=== PATIENT | female | born 1990 | race Caucasian/White ===

== ENCOUNTER → 2018-05-01 18:48 | Outpatient (REF) | payer OTHER, MEDICAID, SELFPAY ==
[2018-05-02 13:44] LABS: Strep Grp B PCR NEG for Grp B Strep
== END ==
LOC: LAB 18:48
PROVIDERS: PCP Physician Assistant; Visit Provider Family Medicine
DX: O99.820 Streptococcus B carrier state complicating pregnancy (principal)
CPT/HCPCS: 87653

== ENCOUNTER 2018-05-09 02:39 | Inpatient (IN) | payer OTHER, MEDICAID, SELFPAY ==
[2018-05-09 03:02] LABS: Urine Amphetamines Negative (Negative); Urine Barbiturates Negative (Negative); Urine Benzodiazepines Negative (Negative); Urine Cocaine Negative (Negative); Urine MDMA Negative (Negative); Urine Methadone Negative (Negative); Urine Methamphetamines Negative (Negative); Urine Morphine/Opi cutoff 2000 Negative (Negative); Urine Oxycodone Negative (Negative); Urine Phencyclidine Negative (Negative); Urine Tetrahydrocannabinol Negative (Negative); Urine Tricyclic Antidepressant Negative (Negative)
[2018-05-09] MEDS: LACTATED RINGERS 1,000 ML 100 ML IV (03:15)
[2018-05-09] MEDS: fentaNYL 100 MCG/2 ML INJ IV (03:15)
[2018-05-09 04:01] LABS: Add Manual Diff / Slide Review NO; Basophils Percent Auto 0.6 % (0-2); Eosinophils Percent Auto 1.5 % (2-4); Hematocrit 41.7 % (36-46); Hemoglobin 13.9 g/dL (12.0-16.0); Lymphocytes Percent Auto 14.8 % (25-40); Mean Corpuscular HGB Conc 33.4 % (30-36); Mean Corpuscular Hemoglobin 30.5 PG (26-34); Mean Corpuscular Volume 91.1 fL (80-100); Monocytes Percent Auto 6.3 % (3-14); Neutrophils Absolute Auto 14500 /uL (3000-5900); Neutrophils Percent Auto 76.8 % (50-75); Platelet Count 194 X10^3/uL (150-400); Red Blood Cell Count 4.58 X10^6/uL (4.0-5.2); Red Cell Distribution Width 14.5 % (11.6-14.8); White Blood Cell Count 18.9 X10^3/uL (4.5-11.0)
--- NOTE | 2018-05-09 06:05 | P.PCNOB_ITS ---
Delivery date: 05/09/18 Intrapartal events: Precipitous Labor < 3 hours Induction method: none Delivery monitor: external FHT and external uterine Route of delivery: breech extraction Laceration description: Periurethral - 1st Degree Estimated blood loss (mL): 250 Anesthesia type: None Narrative: Identifying data: 27-year-old at 37 and 6 /7 weeks estimated gestational age based on 23 week ultrasound and LMP presents to Labor and delivery with spontaneous labor. Patient was late to care. History of maternal drug use but stopped in 1st trimester. Urine drug screens were all negative further remainder of the and also when patient came in in labor. GBS negative, O positive, a glucose tolerance test 58 and mom smoked throughout . Also of significant other during approximately 6 weeks ago. Accidental Stage I lasted 1 hr. Patient noted cramping yesterday and contractions spaced apart today that were not very painful and then she went to work and worked for an hour but came home because she was having back pains. This was at approximately 4:00 p.m. today. The contractions progressively increased in intensity and frequency and regularity and patient noted leaking of fluid which was clear at 2:00 a.m.. She presented to Labor and delivery at approximately 2:30 a.m. and was in significant amount of pain requesting epidural. She is noted to be 3 cm and due to severity of pain she was given 100 mcg of fentanyl which did not give her any relief and then rapidly progressed to complete with a starr breech presentation. I was called in stat and confirmed with ultrasound starr breech presentation as well as with vaginal exam as well confirmed that she was complete. Anesthesia and backup OB and TS was called as well as the OR crew and preparation to proceed for section. Stage II lasted 15 min Patient was coached to not push but began involuntary pushing at approximately 4 :00 a.m.. Initially baby's back was to maternal right but with pushing baby's back was up on top. Mom continued to push until just the ft were remaining in shoulders and had of course. Dr. Oneill arrived at that time. Dr. Solomon from anesthesia arrived at approximately 410 but it was felt that epidural could not be performed at this time. Please see Dr. Oneill consult note. Mom was then switched to hands and knees and allowing the baby's weight to extract the feet and then in usual fashion 1 arm was delivered baby was rotated 180? and the other arm was rotated and then the head was delivered atraumatically. Baby was suppressed at delivery. The cord was cut and clamped and baby take in to the warmer for resuscitation. Apgars were 4 at 1 min and 8 at 5 min and 9 at 10 min and positive pressure ventilation was given for 3 min. There was a very small first-degree perineal laceration. And a right labial laceration. Stage III lasted 10 min Normal spontaneous vaginal delivery of an intact normal appearing placenta with a three-vessel cord and central cord insertion. No significant calcific calcifications. The right labial and perineal lacerations were repaired with 3 0 chromic in the usual fashion. Pitocin was given At the time this dictation both mom and baby are in stable condition
[2018-05-09 07:19] VITALS: BP 136/94
[2018-05-09] MEDS: IBUPROFEN 600 MG TABLET PO ×2 (07:34→23:57)
[2018-05-09] MEDS: HYDROCODONE/ACET 5/325 TABLET 1 TAB PO (11:38)
[2018-05-10 07:06] LABS: Add Manual Diff / Slide Review NO; Basophils Percent Auto 0.7 % (0-2); Eosinophils Percent Auto 2.5 % (2-4); Hematocrit 34.9 % (36-46); Hemoglobin 11.7 g/dL (12.0-16.0); Lymphocytes Percent Auto 27.7 % (25-40); Mean Corpuscular HGB Conc 33.5 % (30-36); Mean Corpuscular Hemoglobin 30.8 PG (26-34); Mean Corpuscular Volume 91.8 fL (80-100); Monocytes Percent Auto 6.6 % (3-14); Neutrophils Absolute Auto 7200 /uL (3000-5900); Neutrophils Percent Auto 62.5 % (50-75); Platelet Count 148 X10^3/uL (150-400); Red Cell Distribution Width 14.6 % (11.6-14.8); White Blood Cell Count 11.5 X10^3/uL (4.5-11.0)
[2018-05-10] MEDS: DOCUSATE 250 MG CAPSULE PO (09:42)
[2018-05-10] MEDS: PRENATAL VIT,CALC/IRON/FOLIC 1 TABLET 1 TAB PO (09:42)
[2018-05-10] MEDS: IBUPROFEN 600 MG TABLET PO (09:42)
--- NOTE | 2018-05-10 09:47 | PM.OBDS.1 ---
Discharge Providers Date of admission: 05/09/18 02:39 Consults: 05/09/18 05:43 Consult to Photoengraving Photographer Routine Comment: Discharge provider: Juliana Yeager MD Summary Date Patient Seen: 05/10/18 Time Patient Seen: 09:48 Peripartum Data Infant Delivery Method: Natural Vaginal Laceration description: Periurethral - 1st Degree complications: none Status at Discharge Cognitive/behavioral status at discharge: normal Functional status at discharge: independent ambulation Time Spent with Patient Total time spent providing and/or coordinating discharge services: Greater than 30 minutes Time spent discussing smoking cessation with patient: 3 to 10 minutes Objective Labs Result Diagrams: 05/10/18 06:40 Labs: Laboratory Results - last 24 hr 05/10/18 06:40 WBC 11.5 H RBC 3.80 L Hgb 11.7 L Hct 34.9 L MCV 91.8 MCH 30.8 MCHC 33.5 RDW 14.6 Plt Count 148 L Neut % (Auto) 62.5 Lymph % (Auto) 27.7 [place] % (Auto) 6.6 Eos % (Auto) 2.5 Baso % (Auto) 0.7 Neut # (Auto) 7200 H Discharge Plan Discharge Plan Patient Disposition: Home, Self-Care Discharge comment: routine discharge, pelvic rest, no heavy lifting Discharge Med Rec/Prescriptions Prescriptions: New docusate sodium 250 mg Capsule 250 mg PO DAILY Qty: 0 RF: 0 ibuprofen 600 mg Tablet 600 mg PO Q6HR PRN (Reason: Pain, Mild (1-3)) Qty: 0 RF: 0 [id number] [Prenatabs Rx] 29 mg iron- 1 mg Tablet 1 tab PO DAILY Qty: 0 RF: 0 Discontinued ALBUTEROL SULFATE (#VENTOLIN HFA) 0.09 mg IH Q4HP Qty: 1 RF: 3 sertraline [Zoloft] 50 MG tablet 50 mg PO Q DAY Qty: 30 RF: 1 PREDNISONE- (#DELTASONE) 20 mg PO QDAY Qty: 10 RF: 0 Provider Discharge Instructions Diet: Diet as Tolerated Skin/Wound/Dressing Care Report to your healthcare provider any signs of infection, such as:: chills, fever, night sweats, increased pain and unusual drainage Discharge Data Attending Provider: Juliana Yeager Admit Date/Time: 05/09/18 02:39
[2018-05-10 10:46] VITALS: BP 130/85; PULSE 82; RESP 16; TEMP 36.2
[2018-05-10] MEDS: MEASLES,MUMPS,RUBELLA VACC/PF 0.5 ML VIAL SUBCUT (11:16)
== END 2018-05-10 12:05 | disposition home or self-care (01) | DRG 560 ==
PROVIDERS: Admitting Provider Family Medicine; Visit Provider Family Medicine
DX: O32.1XX0 Maternal care for breech presentation, not applicable or unspecified (principal); Z3A.37 37 weeks gestation of pregnancy; Z37.0 Single live birth; O70.0 First degree perineal laceration during delivery; O99.334 Smoking (tobacco) complicating childbirth; F17.210 Nicotine dependence, cigarettes, uncomplicated
CPT/HCPCS: 36415; 59050; 80305; 85025; 86850; 86900; 86901; G0379; J3010

== ENCOUNTER → 2019-07-19 09:29 | Outpatient (CLI) | payer OTHER, MEDICAID, SELFPAY ==
[2019-07-19 13:15] LABS: Urine N gonorrhoeae DETECTED
[2019-07-19 13:39] LABS: Urine Chlamydia DETECTED
== END ==
PROVIDERS: PCP Physician Assistant; Visit Provider Physician Assistant
DX: Z11.3 Encounter for screening for infections with a predominantly sexual mode of transmission (principal); R30.0 Dysuria
CPT/HCPCS: 87077; 87086; 87491; 87591

== ENCOUNTER 2019-08-25 17:40 | Emergency (ER) | payer MEDICAID, SELFPAY ==
[2019-08-25 17:52] VITALS: BP 110/82; PULSE 88; RESP 12; TEMP 36.2; O2SAT 98
--- NOTE | 2019-08-25 18:06 | ED_ITS ---
HPI - Abdominal Pain General Chief Complaint: Abdominal Pain Stated Complaint: bad stomach Time Seen by Provider: 08/25/19 18:00 Source: patient Mode of arrival: Ambulatory Limitations: no limitations History of Present Illness HPI narrative: 29-year-old female smoker with history of asthma and methamphetamine abuse presents with her mother and a chief complaint of some generalized episodic abdominal pain over the past day. She has had decreased bowel movements and stools which are hard. She has had some change in her diet. She denies any fever or chills. She does admit to significant stressors in her life currently. MD complaint: abdominal pain Onset (ago): hour(s) Pain Consistency: intermittent Location: diffuse Severity: moderate Quality: cramping Relieving factors: nothing Exacerbating factors: nothing Associated symptoms: nausea and constipation Related Data Previous Rx's Medication Instructions Recorded ALBUTEROL SULFATE (#VENTOLIN HFA) 0.09 mg IH Q4HP #1 07/19/11 PREDNISONE- (#DELTASONE) 20 mg PO QDAY #10 08/02/11 sertraline [Zoloft] 50 mg PO Q DAY #30 08/02/11 albuterol sulfate 90 mcg/actuation 2 puff INHALATION Q4-6H PRN #8.5 07/19/19 aerosol inhaler gram phenazopyridine 100 mg tablet 100 mg PO TID PRN 0 Days #6 tab 07/19/19 Allergies Allergy/AdvReac Type Severity Reaction Status Date / Time No Known Drug Allergies Allergy Verified 07/19/19 09:39 Review of Systems Constitutional Constitutional: Denies chills, Denies fatigue, Denies fever(s), Denies frequent falls, Denies lethargy and Denies weakness Eyes Eyes: Denies change in vision, Denies eye discharge, Denies irritation and Denies loss of vision ENT Ears, Nose, Mouth, and Throat: Denies change in voice, Denies dizziness, Denies neck pain, Denies sore throat and Denies throat swelling Cardiovascular Cardiovascular: Denies chest pain, Denies irregular heart rhythm, Denies lightheadedness, Denies palpitations, Denies dyspnea, Denies dyspnea on exertion and Denies orthopnea Respiratory Respiratory: Denies cough, Denies dyspnea, Denies dyspnea on exertion and Denies wheezing Gastrointestinal Gastrointestinal: Reports abdominal pain, Denies change in bowel habits, Reports constipation, Denies diarrhea, Denies nausea and Denies vomiting Genitourinary Genitourinary: Denies hematuria, Denies flank pain, Denies urinary incontinence and Denies urinary urgency Musculoskeletal Musculoskeletal: Denies back pain, Denies muscle weakness, Denies neck pain, Denies numbness and Denies tingling Integumentary/Breasts Skin/Breast: Denies pruritus, Denies erythema, Denies rash and Denies wounds Neurologic Neurologic: Denies behavioral changes, Denies confusion, Denies dizziness, Denies frequent falls, Denies loss of vision, Denies numbness, Denies tingling and Denies weakness Psychiatric Psychiatric: Denies anxiety, Denies behavioral changes, Denies confusion, Denies depression, Denies homicidal ideation and Denies suicidal ideation Endocrine Endocrine: Denies fatigue, Denies flushing and Denies palpitations Hematologic/Lymphatic Hematologic/Lymphatic: Denies easy bruising Allergic/Immunologic Allergic/Immunologic: Denies urticaria, Denies throat swelling and Denies wheezing Patient History Social History Smoking Status: Current every day smoker Substance Use Type: methamphetamine Exam Narrative Exam Narrative: GENERAL: [29] year old patient appears stated age. Well- nourished, well-developed patient, in mild distress. HEAD: Atraumatic. Normocephalic. EYES: Pupils equal round and reactive. Extraocular motions intact. No scleral icterus. No injection or drainage. ENT: Nose without bleeding, purulent drainage. Throat without erythema, tonsillar hypertrophy or exudate. Airway patent. NECK: Trachea midline. Non tender CARDIOVASCULAR: Regular rate and rhythm without murmurs, gallops, or rubs. RESPIRATORY: Clear to auscultation. Breath sounds equal bilaterally. No wheezes, rales, or rhonchi. GASTROINTESTINAL: Abdomen soft, non-tender, nondistended. EXTREMITIES: No edema or joint tenderness. BACK: Nontender without deformity or crepitance. No flank tenderness. NEURO: AOx3. SKIN: No rash or erythema of visible areas Initial Vital Signs Initial Vital Signs: Vital Signs Temperature 97.2 F L 08/25/19 17:52 Pulse Rate 88 08/25/19 17:52 Respiratory Rate 12 08/25/19 17:52 Blood Pressure 110/82 08/25/19 17:52 Pulse Oximetry 98 08/25/19 17:52 Course Orders Ordered: ED Orders 08/25/19 18:00 Basic Metabolic Panel Stat Complete Blood Count AUTO DIFF Stat 08/25/19 18:21 XR acute abdomen series Stat Discontinued Medications Sodium Chloride (Normal Saline 0.9%) 1,000 mls @ 1,000 mls/hr IV BOLUS ONE Stop: 08/25/19 19:56 Last Infusion: 08/25/19 19:45 Dose: 0 mls/hr Documented by: Admin: 08/25/19 18:55 Dose: 1,000 mls/hr Documented by: CATHERINE Vital Signs Vital signs: Vital Signs - 8 hr 08/25/19 17:52 08/25/19 19:19 08/25/19 19:50 Temperature 97.2 F L Pulse Rate 88 78 78 Respiratory Rate 12 16 16 Blood Pressure 110/82 115/74 Blood Pressure [Left Arm] 124/79 Pulse Oximetry 98 100 97 MDM - Abdominal Pain Lab Data Result diagrams: 08/25/19 18:00 08/25/19 18:00 Labs: Lab Results 08/25/19 08/25/19 Range/Units 18:00 18:00 WBC 4.6 (4.5-11.0) X10^3/uL RBC 4.80 (4.0-5.2) X10^6/uL Hgb 14.1 (12.0-16.0) g/dL Hct 42.9 (36-46) % MCV 89.5 (80-100) fL MCH 29.4 (26-34) PG MCHC 32.9 (30-36) % RDW 13.5 (11.6-14.8) % Plt Count 180 (150-400) X10^3/uL Neut % (Auto) 65.1 (50-75) % Lymph % (Auto) 24.0 L (25-40) % [place] % (Auto) 7.1 (3-14) % Eos % (Auto) 3.2 (2-4) % Baso % (Auto) 0.6 (0-2) % Neut # (Auto) 3000 (1034-3239) /uL Lymph # (Auto) 1100 (3409-3443) /uL [place] # (Auto) 300 (0-900) /uL Eos # (Auto) 100 (0-450) /uL Baso # (Auto) 0 (0-100) /uL Sodium 135 L (137-145) mmol/L Potassium 3.9 (3.4-5.1) mmol/L Chloride 102 (98-107) mmol/L Carbon Dioxide 25 (22-32) mmol/L BUN 13 (7-17) mg/dL Creatinine 0.60 (0.52-1.04) mg/dL Estimated GFR > 60.0 (>60) mL/min BUN/Creatinine Ratio 21.7 (6-22) Glucose 95 (70-100) mg/dL Calcium 9.0 (8.4-10.2) mg/dL Point of care testing: Point of Care Testing Test Results Negative Urine Dip Bedside Urine Glucose Negative Bedside Urine Bilirubin - Negative Bedside Urine Ketone - Negative Urine Specific [place] 1.015 Bedside Urine Occult Blood - Negative Bedside Urine pH 6.0 Bedside Urine Protein - Negative Bedside Urine Urobilinogen +/- 1mg Bedside Urine Nitrite - Negative Bedside Urine Leukocytes - Negative Esterase Discharge Plan Departure Patient Disposition: Home Clinical Impression: Abdominal pain Qualifiers: Abdominal location: generalized Qualified Code(s): R10.84 - Generalized abdominal pain Constipation Qualifiers: Constipation type: unspecified constipation type Qualified Code(s): K59.00 - Constipation, unspecified Discharge Date/Time: 08/25/19 19:50 Instructions: DI for Constipation Activity Restrictions/Additional Instructions: *You have been diagnosed with [ abdominal pain due to constipation ] *What to do: *Take over the counter medications as directed: 1. Magnesium Citrate - brings water into your bowel 2. Colace - softens your stool 3. Dulcolax - stiumlates your bowels *Follow up with your primary care provider in 2-3 days, call for appointment *Return to ER if you should have any new, worsening or concerning symptoms *Drink plenty of water and eat foods high in fiber Prescriptions: No Action albuterol sulfate 90 mcg/actuation HFA aerosol inhaler 2 puff INHALATION Q4-6H PRN (Reason: bronchospasm) Qty: 8.5 RF: 0 phenazopyridine [Pyridium] 100 mg tablet 100 mg PO TID PRN (Reason: pain) 0 Days Qty: 6 RF: 0 ALBUTEROL SULFATE (#VENTOLIN HFA) 0.09 mg IH Q4HP Qty: 1 RF: 3 sertraline [Zoloft] 50 MG tablet 50 mg PO Q DAY Qty: 30 RF: 1 PREDNISONE- (#DELTASONE) 20 mg PO QDAY Qty: 10 RF: 0 Referrals: Vita Rodriguez PA-C [Primary Care Provider] -
--- NOTE | 2019-08-25 18:21 | DI.RAD.S_ITS ---
PROCEDURE: XR ACUTE ABDOMEN SERIES INDICATIONS: abdominal pain decreased BMs TECHNIQUE: One view chest and two views of the abdomen were acquired. COMPARISON: [facility], , CHEST 1 VIEW, 11/17/2008, 0:21. FINDINGS: Surgical changes and devices: None. Chest: Lungs are clear. Heart size is normal. No pleural effusions. No pneumoperitoneum. Abdomen: Bowel gas pattern demonstrates gas within nondistended small and large bowel loops. There are few scattered air-fluid levels. A moderate amount of colonic stool is noted within the descending and sigmoid colon. No suspicious calcifications. Bones: No suspicious bony lesions. IMPRESSION: 1. Scattered air-fluid levels within small and large bowel loops without abnormal gas distention. The findings are nonspecific and may reflect an ileus or gastroenteritis. 2. Small to moderate amount of colonic stool in the descending and sigmoid colon may reflect mild constipation. Dictated by: Arben Chaparro M.D. on 08/25/2019 at 18:55 Approved by: Arben Chaparro M.D. on 08/25/2019 at 18:58
[2019-08-25] MEDS: SODIUM CHLORIDE 0.9% 1,000 ML 1000 ML IV (18:55)
[2019-08-25 19:10] LABS: Add Manual Diff / Slide Review NO; Basophils Absolute Auto 0 /uL (0-100); Basophils Percent Auto 0.6 % (0-2); Eosinophils Absolute Auto 100 /uL (0-450); Eosinophils Percent Auto 3.2 % (2-4); Hematocrit 42.9 % (36-46); Hemoglobin 14.1 g/dL (12.0-16.0); Lymphocytes Absolute Auto 1100 /uL (1100-4500); Mean Corpuscular HGB Conc 32.9 % (30-36); Mean Corpuscular Hemoglobin 29.4 PG (26-34); Mean Corpuscular Volume 89.5 fL (80-100); Monocytes Absolute Auto 300 /uL (0-900); Monocytes Percent Auto 7.1 % (3-14); Neutrophils Absolute Auto 3000 /uL (1500-7000); Neutrophils Percent Auto 65.1 % (50-75); Platelet Count 180 X10^3/uL (150-400); Red Cell Distribution Width 13.5 % (11.6-14.8); White Blood Cell Count 4.6 X10^3/uL (4.5-11.0)
[2019-08-25 19:17] LABS: BUN Creatinine Ratio 21.7 (6-22); Blood Urea Nitrogen 13 mg/dL (7-17); Carbon Dioxide 25 mmol/L (22-32); Chloride 102 mmol/L (98-107); Estimated Glomerular Filt Rate > 60.0 mL/min (>60); Glucose 95 mg/dL (70-100); HEMOLYSIS < 15 (0-50); Potassium 3.9 mmol/L (3.4-5.1); Sodium 135 mmol/L (137-145)
[2019-08-25 19:19] VITALS: BP 124/79; PULSE 78; RESP 16; O2SAT 100
[2019-08-25 19:50] VITALS: BP 115/74; PULSE 78; RESP 16; O2SAT 97
== END 2019-08-25 19:50 | disposition home or self-care (01) ==
PROVIDERS: Emergency Provider Emergency Medicine; PCP Physician Assistant
DX: R10.84 Generalized abdominal pain (principal); K59.00 Constipation, unspecified
CPT/HCPCS: 74022; 80048; 81003; 81025; 85025; 99283; 99284

== ENCOUNTER 2020-05-22 20:14 | Emergency (ER) | payer OTHER, MEDICAID, SELFPAY ==
[2020-05-22 20:22] VITALS: BP 150/84; PULSE 105; RESP 22; TEMP 37; O2SAT 100; BMI 36.0
--- NOTE | 2020-05-22 20:49 | ED_ITS ---
HPI - Abdominal Pain General Chief Complaint: Abdominal Pain Stated Complaint: ABD PAIN, ANXIETY Time Seen by Provider: 05/22/20 20:40 Source: patient Mode of arrival: Ambulatory Limitations: no limitations History of Present Illness HPI narrative: 29-year-old female here for evaluation of lower abdominal pain, dysuria and vaginal discharge. Patient states symptoms been going on for a couple days now. No fevers. Has not tried anything for symptoms prior to arrival. She also states that she felt like she needed to have a bowel movement but did not. She was concerned that she had some diarrhea. She is concerned about sexually transmitted diseases. She has had these in the past. She has had unprotected intercourse. Related Data Previous Rx's Medication Instructions Recorded ALBUTEROL SULFATE (#VENTOLIN HFA) 0.09 mg IH Q4HP #1 07/19/11 PREDNISONE- (#DELTASONE) 20 mg PO QDAY #10 08/02/11 sertraline [Zoloft] 50 mg PO Q DAY #30 08/02/11 albuterol sulfate 90 mcg/actuation 2 puff INHALATION Q4-6H PRN #8.5 07/19/19 aerosol inhaler gram phenazopyridine 100 mg tablet 100 mg PO TID PRN 0 Days #6 tab 07/19/19 doxycycline hyclate 100 mg PO BID 14 Days #28 tab 05/22/20 metronidazole [Flagyl] 500 mg PO BID 14 Days #28 tab 05/22/20 Allergies Allergy/AdvReac Type Severity Reaction Status Date / Time No Known Drug Allergies Allergy Verified 05/22/20 20:27 Review of Systems Constitutional Constitutional: Denies fever(s) and Denies headache(s) ENT Ears, Nose, Mouth, and Throat: Denies headache(s) Cardiovascular Cardiovascular: Denies chest pain and Denies dyspnea Respiratory Respiratory: Denies dyspnea Gastrointestinal Gastrointestinal: Reports abdominal pain, Reports constipation and Reports nausea Genitourinary Genitourinary: Reports dysuria and Denies genital lesions Genitourinary: Reports dysuria, Denies genital lesions and Reports vaginal discharge Musculoskeletal Musculoskeletal: Denies arthralgias and Denies myalgias Integumentary/Breasts Skin/Breast: Denies lesions and Denies rash Neurologic Neurologic: Denies headache(s) Psychiatric Psychiatric: Reports anxiety Hematologic/Lymphatic Hematologic/Lymphatic: Denies easy bleeding and Denies easy bruising Allergic/Immunologic Allergic/Immunologic: Denies urticaria Patient History Medical History Anxiety (Acute) Social History Smoking Status: Current every day smoker Smoking Status: Current every day smoker tobacco type: cigarettes alcohol intake frequency: a few times a month Substance Use Type: methamphetamine Exam Initial Vital Signs Initial Vital Signs: Vital Signs Temperature 98.6 F 05/22/20 20:22 Pulse Rate 105 H 05/22/20 20:22 Respiratory Rate 22 05/22/20 20:22 Blood Pressure 150/84 H 05/22/20 20:22 Pulse Oximetry 100 05/22/20 20:22 Const General: cooperative Limitations: mental status not altered HENMT Head: normal to inspection and normocephalic Resp Effort & Inspection: normal respiratory effort Auscultation: clear to auscultation bilaterally Cardio Rate: regular rate Rhythm: regular rhythm GI Inspection: non-distended Palpation: soft and tender (Lower abdomen specifically suprapubic) Speculum Exam - Cervix: tender Bimanual Exam- Vagina & Uterus: tender, not enlarged and tender Bimanual Exam- Adnexa, other: normal adnexae and no tenderness Skin Lesions: no lesions Rashes: no rashes Neuro General: patient alert and patient awake Cognition: normal cognition Speech: speech normal Extrem General: normal to inspection and capillary refill normal Psych Appearance: grossly normal and well kempt Course Orders Ordered: ED Orders 05/22/20 20:55 Chlamydia Gonorrhea PCR -URINE Stat Test Urine Stat Urinalysis and Microscopic Stat Urine Culture Stat 05/22/20 21:32 Complete Blood Count AUTO DIFF Stat Comprehensive Metabolic Panel Stat Lipase Stat Discontinued Medications Hydrocodone Bitart/Acetaminophen ([place] 5/325) 1 tab PO NOW ONE Stop: 05/22/20 22:23 Last Admin: 05/22/20 22:27 Dose: 1 tab Documented by: APRIL Ceftriaxone Sodium (Rocephin) 250 mg IM NOW ONE Stop: 05/22/20 23:05 Last Admin: 05/22/20 23:19 Dose: 250 mg Documented by: APRIL Doxycycline Hyclate (Vibramycin) 100 mg PO NOW ONE Stop: 05/22/20 23:18 Last Admin: 05/22/20 23:22 Dose: 100 mg Documented by: APRIL Sodium Chloride (Normal Saline 0.9%) 1,000 mls @ 1,000 mls/hr IV BOLUS ONE Stop: 05/22/20 21:52 Last Infusion: 05/22/20 23:01 Dose: 0 mls/hr Documented by: Admin: 05/22/20 21:29 Dose: 1,000 mls/hr Documented by: APRIL Metronidazole (Metronidazole) 500 mg PO NOW ONE Stop: 05/22/20 23:18 Last Admin: 05/22/20 23:22 Dose: 500 mg Documented by: APRIL Vital Signs Vital signs: Vital Signs - 8 hr 05/22/20 20:22 05/22/20 23:36 Temperature 98.6 F 98.7 F Pulse Rate 105 H 101 H Respiratory Rate 22 18 Blood Pressure 150/84 H 140/89 Pulse Oximetry 100 99 MDM - Abdominal Pain Lab Data Attestation: I reviewed the patient's lab results. Result diagrams: 05/22/20 21:32 05/22/20 21:32 Labs: Lab Results 05/22/20 05/22/20 05/22/20 Range/Units 20:55 20:55 20:55 WBC (4.5-11.0) X10^3/uL RBC (4.0-5.2) X10^6/uL Hgb (12.0-16.0) g/dL Hct (36-46) % MCV (80-100) fL MCH (26-34) PG MCHC (30-36) % RDW (11.6-14.8) % Plt Count (150-400) X10^3/uL Neut % (Auto) (50-75) % Lymph % (Auto) (25-40) % [place] % (Auto) (3-14) % Eos % (Auto) (2-4) % Baso % (Auto) (0-2) % Neut # (Auto) (5140-1923) /uL Lymph # (Auto) (1420-8578) /uL [place] # (Auto) (0-900) /uL Eos # (Auto) (0-450) /uL Baso # (Auto) (0-100) /uL Sodium (137-145) mmol/L Potassium (3.4-5.1) mmol/L Chloride (98-107) mmol/L Carbon Dioxide (22-32) mmol/L BUN (7-17) mg/dL Creatinine (0.52-1.04) mg/dL Estimated GFR (>60) mL/min BUN/Creatinine Ratio (6-22) Glucose (70-100) mg/dL Calcium (8.4-10.2) mg/dL Total Bilirubin (0.2-1.3) mg/dL AST (14-36) IU/L ALT (<35) IU/L Alkaline Phosphatase (38-126) U/L Total Protein (6.3-8.2) g/dL Albumin (3.5-5.0) g/dL Globulin (1.7-4.1) g/dL Albumin/Globulin Ratio (1.0-2.8) Lipase (23-300) U/L Urine Color Yellow Urine Appearance Sl cloudy Urine pH 5.0 (4.5-8.0) Ur Specific [place] 1.025 (1.000-1.035) Urine Protein Negative (Negative) Urine Glucose (UA) Negative (Negative) g/dL Urine Ketones Negative (NEGATIVE) Urine Occult Blood 3+ H (Negative) Urine Nitrate Negative (Negative) Urine Bilirubin Negative (NEGATIVE) Urine Urobilinogen 0.2 (0.2) E.U./dL Ur Leukocyte Esterase 2+ H (NEGATIVE) Urine RBC 10-30/hpf H (0-5/HPF) Urine WBC 10-30/hpf H (0-5/HPF) Ur Squamous Epith Cells 1-5 /hpf (0-5/HPF) Ur Transition Epith Cell 1-5/hpf (0-5/HPF) Urine Bacteria Few (2-10) H (None) Ur Culture Indicated? Specimen cultured Urine Test Negative (Negative) Ur Chlamydia DNA (PCR) Detected H N gonorrhoeae DNA (PCR) Detected H 05/22/20 05/22/20 Range/Units 21:32 21:32 WBC 16.4 H (4.5-11.0) X10^3/uL RBC 4.71 (4.0-5.2) X10^6/uL Hgb 14.1 (12.0-16.0) g/dL Hct 42.1 (36-46) % MCV 89.5 (80-100) fL MCH 29.9 (26-34) PG MCHC 33.4 (30-36) % RDW 14.6 (11.6-14.8) % Plt Count 194 (150-400) X10^3/uL Neut % (Auto) 83.3 H (50-75) % Lymph % (Auto) 10.2 L (25-40) % [place] % (Auto) 4.2 (3-14) % Eos % (Auto) 1.8 L (2-4) % Baso % (Auto) 0.5 (0-2) % Neut # (Auto) 79835 H (6686-5828) /uL Lymph # (Auto) 1700 (5266-7205) /uL [place] # (Auto) 700 (0-900) /uL Eos # (Auto) 300 (0-450) /uL Baso # (Auto) 100 (0-100) /uL Sodium 135 L (137-145) mmol/L Potassium 3.9 (3.4-5.1) mmol/L Chloride 104 (98-107) mmol/L Carbon Dioxide 23 (22-32) mmol/L BUN 17 (7-17) mg/dL Creatinine 0.88 (0.52-1.04) mg/dL Estimated GFR > 60.0 (>60) mL/min BUN/Creatinine Ratio 19.3 (6-22) Glucose 96 (70-100) mg/dL Calcium 9.6 (8.4-10.2) mg/dL Total Bilirubin 0.8 (0.2-1.3) mg/dL AST 33 (14-36) IU/L ALT 45 H (<35) IU/L Alkaline Phosphatase 72 (38-126) U/L Total Protein 7.1 (6.3-8.2) g/dL Albumin 4.2 (3.5-5.0) g/dL Globulin 2.9 (1.7-4.1) g/dL Albumin/Globulin Ratio 1.4 (1.0-2.8) Lipase 44 (23-300) U/L Urine Color Urine Appearance Urine pH (4.5-8.0) Ur Specific [place] (1.000-1.035) Urine Protein (Negative) Urine Glucose (UA) (Negative) g/dL Urine Ketones (NEGATIVE) Urine Occult Blood (Negative) Urine Nitrate (Negative) Urine Bilirubin (NEGATIVE) Urine Urobilinogen (0.2) E.U./dL Ur Leukocyte Esterase (NEGATIVE) Urine RBC (0-5/HPF) Urine WBC (0-5/HPF) Ur Squamous Epith Cells (0-5/HPF) Ur Transition Epith Cell (0-5/HPF) Urine Bacteria (None) Ur Culture Indicated? Urine Test (Negative) Ur Chlamydia DNA (PCR) N gonorrhoeae DNA (PCR) MDM Narrative Medical decision making narrative: Patient does have a leukocytosis in her urine does have signs of urinary tract infection. She is having dysuria however her gonorrhea and chlamydia were also positive. This could be the reason why she is having bacteria in her urine. She does have some cervical tenderness on bimanual exam and some suprapubic/uterine tenderness. No adnexal tenderness. I feel given the discomfort that she has an her leukocytosis her positive gonorrhea chlamydia that treating her for PID is warranted in her case. This treatment would also cover any potential urinary tract infection. Patient was able to tolerate 1st dose of antibiotics here in the ER. She was given Rocephin IM and will send home with doxycycline and Flagyl. Patient was given return precautions and follow-up instructions. She expressed understanding and agreement. Patient was also instructed to avoid sexual intercourse until greater than 7 days after the completion of her antibiotics and ideally after she is followed up with her primary doctor to have a test of cure. Also informed the patient that she should consider telling her sexual partners that she tested positive for gonorrhea chlamydia. She expressed understanding. Discharge Plan Departure Patient Disposition: Home Clinical Impression: Acute pelvic inflammatory disease (PID), Gonorrhea, Chlamydia Abdominal pain Qualifiers: Abdominal location: lower abdomen, unspecified Qualified Code(s): R10.30 - Lower abdominal pain, unspecified Discharge Date/Time: 05/22/20 23:37 Instructions: How to Detect and Treat STDs, DI for Pelvic Inflammatory Disease (PID) Activity Restrictions/Additional Instructions: Contact your primary provider for follow-up. A prescription for 2 different antibiotics was electronically transmitted to [facility]. Please pick them up tomorrow and start taking them as directed. At the very least recommend no sexual intercourse until you have completed the course of antibiotics which is 14 days and you have waited at least 7 days after the last dose of antibiotics. Ideally you would be seen by your primary doctor and have a ?test of cure ?which is a another gonorrhea and chlamydia test to show that they were completely treated with this course of antibiotics. Return to the emergency de partment for any new or worsening symptoms Prescriptions: New doxycycline hyclate 100 mg tablet 100 mg PO BID 14 Days Qty: 28 RF: 0 metronidazole [Flagyl] 500 mg tablet 500 mg PO BID 14 Days Qty: 28 RF: 0 No Action albuterol sulfate 90 mcg/actuation HFA aerosol inhaler 2 puff INHALATION Q4-6H PRN (Reason: bronchospasm) Qty: 8.5 RF: 0 phenazopyridine [Pyridium] 100 mg tablet 100 mg PO TID PRN (Reason: pain) 0 Days Qty: 6 RF: 0 ALBUTEROL SULFATE (#VENTOLIN HFA) 0.09 mg IH Q4HP Qty: 1 RF: 3 sertraline [Zoloft] 50 MG tablet 50 mg PO Q DAY Qty: 30 RF: 1 PREDNISONE- (#DELTASONE) 20 mg PO QDAY Qty: 10 RF: 0 Referrals: Juliana Yeager MD [Primary Care Provider] -
[2020-05-22 21:04] LABS: Pregnancy Test Urine Negative (Negative)
[2020-05-22] MEDS: SODIUM CHLORIDE 0.9% 1,000 ML 1000 ML IV (21:29)
[2020-05-22 21:31] LABS: Appearance Urine UA SL CLOUDY; Bilirubin Urine UA NEGATIVE (NEGATIVE); Color Urine UA YELLOW; Glucose Urine UA NEGATIVE (Negative); Ketones Urine UA NEGATIVE (NEGATIVE); Leukocyte Esterase Urine UA 2+ (NEGATIVE); Nitrite Urine UA NEGATIVE (Negative); Occult Blood Urine UA 3+ (Negative); Protein Urine UA NEGATIVE (Negative); Specific Gravity Urine UA 1.025 (1.000-1.035); Urobilinogen Urine UA 0.2 E.U./dL (0.2)
[2020-05-22 21:39] LABS: Bacteria Urine Few (2-10); Culture Indicated Urine Specimen Cultured; RBC Urine 10-30/HPF (0-5/HPF); Squamous Epithelial Cell Urine 1-5 /HPF (0-5/HPF); Transitional Epi Cells Urine 1-5/HPF (0-5/HPF); WBC Urine 10-30/HPF (0-5/HPF)
[2020-05-22 21:40] LABS: Add Manual Diff / Slide Review NO; Basophils Absolute Auto 100 /uL (0-100); Basophils Percent Auto 0.5 % (0-2); Eosinophils Absolute Auto 300 /uL (0-450); Eosinophils Percent Auto 1.8 % (2-4); Hematocrit 42.1 % (36-46); Hemoglobin 14.1 g/dL (12.0-16.0); Lymphocytes Absolute Auto 1700 /uL (1100-4500); Lymphocytes Percent Auto 10.2 % (25-40); Mean Corpuscular HGB Conc 33.4 % (30-36); Mean Corpuscular Hemoglobin 29.9 PG (26-34); Mean Corpuscular Volume 89.5 fL (80-100); Monocytes Absolute Auto 700 /uL (0-900); Monocytes Percent Auto 4.2 % (3-14); Neutrophils Absolute Auto 13600 /uL (1500-7000); Neutrophils Percent Auto 83.3 % (50-75); Platelet Count 194 X10^3/uL (150-400); Red Blood Cell Count 4.71 X10^6/uL (4.0-5.2); Red Cell Distribution Width 14.6 % (11.6-14.8); White Blood Cell Count 16.4 X10^3/uL (4.5-11.0)
[2020-05-22 21:50] LABS: Alanine Aminotransferase 45 IU/L (<35); Albumin 4.2 g/dL (3.5-5.0); Albumin Globulin Ratio 1.4 (1.0-2.8); Alkaline Phosphatase 72 U/L (38-126); Aspartate Aminotransferase 33 IU/L (14-36); BUN Creatinine Ratio 19.3 (6-22); Bilirubin Total 0.8 mg/dL (0.2-1.3); Blood Urea Nitrogen 17 mg/dL (7-17); Calcium 9.6 mg/dL (8.4-10.2); Carbon Dioxide 23 mmol/L (22-32); Chloride 104 mmol/L (98-107); Estimated Glomerular Filt Rate > 60.0 mL/min (>60); Globulin 2.9 g/dL (1.7-4.1); Glucose 96 mg/dL (70-100); HEMOLYSIS < 15 (0-50); Lipase 44 U/L (23-300); Potassium 3.9 mmol/L (3.4-5.1); Sodium 135 mmol/L (137-145); Total Protein 7.1 g/dL (6.3-8.2)
[2020-05-22] MEDS: HYDROCODONE/ACET 5/325 TABLET 1 TAB PO (22:27)
[2020-05-22 22:52] LABS: Urine N gonorrhoeae DETECTED
[2020-05-22 22:56] LABS: Urine Chlamydia DETECTED
[2020-05-22] MEDS: cefTRIAXone 1,000 MG VIAL 250 MG IM (23:19)
[2020-05-22] MEDS: LIDOCAINE 1% (PF) 2 ML (23:20)
[2020-05-22] MEDS: DOXYCYCLINE HYCLATE 100 MG TABLET PO (23:22)
[2020-05-22] MEDS: metroNIDAZOLE 250 MG TABLET 500 MG PO (23:22)
[2020-05-22 23:36] VITALS: BP 140/89; PULSE 101; RESP 18; TEMP 37.1; O2SAT 99
== END 2020-05-22 23:37 | disposition home or self-care (01) ==
PROVIDERS: Emergency Provider Emergency Medicine; PCP Family Medicine
DX: A56.11 Chlamydial female pelvic inflammatory disease (principal); A54.24 Gonococcal female pelvic inflammatory disease; R10.30 Lower abdominal pain, unspecified; R30.0 Dysuria; R19.7 Diarrhea, unspecified; R11.0 Nausea; F41.9 Anxiety disorder, unspecified
CPT/HCPCS: 36415; 80053; 81001; 81025; 83690; 85025; 87086; 87491; 87591; 96360; 96361; 96372; 99284; J0696

== ENCOUNTER → 2021-04-04 19:26 | Outpatient (CLI) | payer OTHER, MEDICAID, SELFPAY | PROVIDERS: PCP Family Medicine; Visit Provider Physician Assistant | DX: B99.9 Unspecified infectious disease (principal) | CPT/HCPCS: 87070; 87075; 87077; 87147; 87186; 87205 ==

== ENCOUNTER 2021-09-24 04:59 | Emergency (ER) | payer OTHER, MEDICAID, SELFPAY ==
[2021-09-24 05:05] VITALS: BP 161/84; PULSE 110; RESP 20; TEMP 36.9; O2SAT 99; BMI 66.2
--- NOTE | 2021-09-24 05:35 | ED_ITS ---
HPI - Skin/Abscess/Foreign Bdy General Chief complaint: Skin/Abscess/Foreign Body Stated complaint: wound on bottom x14 days Time Seen by Provider: 09/24/21 05:04 Source: patient Mode of arrival: Ambulatory Limitations: no limitations History of Present Illness HPI narrative: 31-year-old female smoker with history of illicit drug use presents with a chief complaint of a painful lesion on her right buttock for at least the past few weeks if not months. She denies any injury. She has no fever or chills. She denies any difficulty with bowel movements or urinating. She states it hurts to sit on it and improves when she stands up. She states that she is ready to start taking better care of herself and wants help. Related Data Previous Rx's Medication Instructions Recorded erythromycin 5 mg/gram (0.5 %) eye 1 applic OPHTHALMIC (EYE) Q8H 7 09/27/20 ointment Days #3.5 g triamcinolone acetonide 0.1 % 1 applic TOPICAL BID #30 g 09/27/20 topical cream mupirocin 2 % topical ointment 1 applic TOPICAL BID #30 g 04/04/21 imiquimod 5 % topical cream packet 1 applic TOPICAL 3XW #12 ea 09/24/21 Allergies Allergy/AdvReac Type Severity Reaction Status Date / Time No Known Drug Allergies Allergy Verified 04/04/21 19:59 Review of Systems Review of Systems Narrative: GENERAL: Denies chills, fatigue, malaise, fever, sweats. HEENT: Denies sinus pain, ear pain, sore throat, difficulty swallowing, dizzine ss. RESPIRATORY: Denies dyspnea, cough, wheezing, hemoptysis, sputum. CARDIOVASCULAR: Denies chest pain, palpitations, orthopnea, edema, GASTROINTESTINAL: Denies nausea, vomiting, abdominal pain, diarrhea, constipation, melena. : Denies dysuria, frequency, incontinence, hematuria, urinary retention. MUSCULOSKELETAL: denies weakness, joint pain, or bony pain SKIN: See HPI NEUROLOGIC: Denies weakness, headache, numbness, change in speech, confusion, seizures, incoordination. PSYCHIATRIC: No concerning psychosocial issues. 12 point review of systems is negative except for those stated above Patient History Medical History Anxiety Skin rash Social History Smoking Status: Current every day smoker Smoking Status: Current every day smoker tobacco type: cigarettes alcohol intake frequency: a few times a month Substance Use Type: methamphetamine Exam Narrative Exam Narrative: GEN: AOx3 and in mild distress EYES: Pupils are equal, round, and reactive to light and accommodation. Extraoccular muscles are intact bilaterally. There is no subconjunctival hemorrhage or exudate. CHEST: Lungs are clear to auscultation bilaterally and free of wheezes, rales, or rhonchi. Heart rate is regular rhythm, there are no murmurs, clicks, rubs, or gallops. There is no chest wall tenderness. ABD: Abdomen is soft and nontender. There is no guarding or rebound. Bowel sounds are normal in all 4 quadrants. There is no mass or organomegaly. RECTAL: 2 x 4 cm painful, raised skin lesion on her right buttock lateral to her external sphincter. No drainage, no surrounding erythema, most consistent with condyloma EXT: Full painless ROM of all extremities with no loss of sensation or strength. SKIN: Warm, pink, and dry. No erythema or rash Initial Vital Signs Initial Vital Signs: Vital Signs Temperature 98.5 F 09/24/21 05:05 Pulse Rate 110 H 09/24/21 05:05 Respiratory Rate 20 09/24/21 05:05 Blood Pressure 161/84 H 09/24/21 05:05 Pulse Oximetry 99 09/24/21 05:05 Course Vital Signs Vital signs: Vital Signs - 8 hr 09/24/21 05:05 Temperature 98.5 F Pulse Rate 110 H Respiratory Rate 20 Blood Pressure 161/84 H Pulse Oximetry 99 Discharge Plan Departure Patient Disposition: Home Clinical Impression: Condyloma acuminata Instructions: Genital Warts Activity Restrictions/Additional Instructions: *You have been diagnosed with [condyloma acuminata] *What to do: *Please continue to take your regular medications as directed. [ x] New medication prescriptions sent to your pharmacy: [ [facility]] [ ] New medication written as a paper prescription [ ] No new medications given *Please follow up with your primary care provider in 2-3 days, call for an appointment. Let them know you were seen in the Emergency Department and that we ask that you be seen in follow up. We will electronically transmit a record of today's note if your PCP is in our system * additionally, given you contact information for local urology who also can be quite helpful a treatment of this diagnosis, please call for an appointment *If you do not have a primary care provider please contact the [facility] Resource line at [phone]. They will ask some questions about your medical history and help get you set up with a doctor in the community. *Return to Emergency Department if you should have any new, worsening or concerning symptoms, such as [fever greater than 101 F, shaking chills, worsening pain, persistent vomiting or other bothersome symptoms] Prescriptions: New imiquimod 5 % cream in packet 1 applic topical 3XW Qty: 12 0RF No Action erythromycin 5 mg/gram (0.5 %) ointment 1 applic ophthalmic (eye) Q8H 7 Days Qty: 3.5 2RF triamcinolone acetonide 0.1 % cream 1 applic topical BID Qty: 30 2RF mupirocin 2 % ointment 1 applic topical BID Qty: 30 0RF Referrals: Keo Hector MD [Physician] - Juliana Yeager MD [Primary Care Provider] -
== END 2021-09-24 05:45 | disposition home or self-care (01) ==
PROVIDERS: Emergency Provider Emergency Medicine; PCP Family Medicine
DX: A63.0 Anogenital (venereal) warts (principal); F17.210 Nicotine dependence, cigarettes, uncomplicated
CPT/HCPCS: 99281

== ENCOUNTER 2021-10-15 21:52 | Emergency (ER) | payer OTHER, MEDICAID, SELFPAY ==
[2021-10-15 22:02] VITALS: BP 175/105; PULSE 96; RESP 20; TEMP 36.2; O2SAT 100
--- NOTE | 2021-10-15 22:18 | ED.SKABFB ---
HPI - Skin/Abscess/Foreign Bdy General Chief complaint: Skin/Abscess/Foreign Body Stated complaint: redness, pain on nose Time Seen by Provider: 10/15/21 22:18 Source: patient Mode of arrival: Ambulatory Limitations: no limitations History of Present Illness HPI narrative: Patient is a 31-year-old female who presents with cough redness on her nose. She said she noticed a pimple the day before she did pop it. It is mildly erythematous yesterday however today it has taken at her old nose is is is extremely tender. She denies fever or chills. 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 Related Data Previous Rx's Medication Instructions Recorded erythromycin 5 mg/gram (0.5 %) eye 1 applic OPHTHALMIC (EYE) Q8H 7 09/27/20 ointment Days #3.5 g triamcinolone acetonide 0.1 % 1 applic TOPICAL BID #30 g 09/27/20 topical cream mupirocin 2 % topical ointment 1 applic TOPICAL BID #30 g 04/04/21 imiquimod 5 % topical cream packet 1 applic TOPICAL 3XW #12 ea 09/24/21 mupirocin 2 % topical ointment 1 applictn TOP BID #15 gram 10/15/21 sulfamethoxazole 800 1 tab PO BID 7 Days #14 tab 10/15/21 mg-trimethoprim 160 mg tablet (Bactrim DS) Allergies Allergy/AdvReac Type Severity Reaction Status Date / Time No Known Drug Allergies Allergy Verified 04/04/21 19:59 Review of Systems Review of Systems Narrative: GENERAL: Denies chills,fever HEENT: Denies throat pain RESPIRATORY: Denies dyspnea, cough, wheezing CARDIOVASCULAR: Denies chest pain, palpitations GASTROINTESTINAL: Denies nausea, vomiting MUSCULOSKELETAL: Denies extremity pain, injury SKIN: See HPI NEUROLOGIC: Denies weakness, dizziness, headache, numbness 8 point review of systems is negative except for those stated above and HPI Patient History Medical History Anxiety Skin rash Social History Smoking Status: Current every day smoker Smoking Status: Current every day smoker tobacco type: cigarettes alcohol intake frequency: a few times a month Substance Use Type: methamphetamine Exam Initial Vital Signs Initial Vital Signs: Vital Signs Temperature 97.2 F L 10/15/21 22:02 Pulse Rate 96 H 10/15/21 22:02 Respiratory Rate 20 10/15/21 22:02 Blood Pressure 175/105 H 10/15/21 22:02 Pulse Oximetry 100 10/15/21 22:02 GENERAL: Well-appearing 31-year-old female CARDIOVASCULAR: peripheral pulses in tact, cap refill <2 sec RESPIRATORY: No respiratory distress, speaks in full sentences without difficulty EXTREMITIES: Normal range of motion, no clubbing or edema. Neurovascularly intact NEUROLOGICAL: Cranial nerves II through XII grossly intact. Normal gait and speech. SKIN: Distal tip of nose is erythematous. In fact erythema to of of the nose. There is no fluctuation. 1 small area of drainage but no induration.. Inside nares does not show any swelling or significant pain. Erythema does not extend on to other areas of the face placed to the nose Course Vital Signs Vital signs: Vital Signs - 8 hr 10/15/21 22:02 Temperature 97.2 F L Pulse Rate 96 H Respiratory Rate 20 Blood Pressure 175/105 H Pulse Oximetry 100 Discharge Plan Departure Patient Disposition: Home Clinical Impression: Cellulitis Instructions: DI for Cellulitis -- Adult Activity Restrictions/Additional Instructions: *You have been diagnosed with cellulitis *What to do: Continue warm compresses and monitoring. Wash with soap and water. Do not apply any other creams or ointments to the area. *Continue to take medications as directed--> SENT TO [facility] Mupirocin bid for 1 week Bactrim 1 tablet twice a day for 7 days *Follow up with your primary care provider in 2-3 days or call [phone] *Return to ER if you should have redness pain swelling or any new, worsening or concerning symptoms Prescriptions: New sulfamethoxazole-trimethoprim [Bactrim DS] 800-160 mg tablet 1 tab PO BID 7 Days Qty: 14 0RF mupirocin 2 % ointment 1 applictn TOP BID Qty: 15 0RF No Action erythromycin 5 mg/gram (0.5 %) ointment 1 applic ophthalmic (eye) Q8H 7 Days Qty: 3.5 2RF triamcinolone acetonide 0.1 % cream 1 applic topical BID Qty: 30 2RF mupirocin 2 % ointment 1 applic topical BID Qty: 30 0RF imiquimod 5 % cream in packet 1 applic topical 3XW Qty: 12 0RF Referrals: Juliana Yeager MD [Primary Care Provider] -
== END 2021-10-15 22:35 | disposition home or self-care (01) ==
PROVIDERS: Emergency Provider Emergency Medicine; PCP Family Medicine
DX: J34.0 Abscess, furuncle and carbuncle of nose (principal); F17.210 Nicotine dependence, cigarettes, uncomplicated
CPT/HCPCS: 99281

== ENCOUNTER 2022-02-05 22:01 | Emergency (ER) | payer OTHER, MEDICAID, SELFPAY ==
[2022-02-05 22:10] VITALS: BP 137/97; PULSE 78; RESP 18; TEMP 36.1; O2SAT 98; BMI 30.9
--- NOTE | 2022-02-05 23:00 | DI.RAD.S_ITS ---
PROCEDURE: XR CHEST 2V INDICATIONS: shortness of breath TECHNIQUE: 2 views of the chest were acquired. COMPARISON: [facility], , CHEST 1 VIEW, 11/17/2008, 0:21. FINDINGS: Surgical changes and devices: None. Lungs and pleura: Lungs are clear. No pleural effusions or pneumothorax. Mediastinum: Mediastinal contours are normal. Heart size is normal. Bones and chest wall: No suspicious bony abnormalities. Soft tissues appear unremarkable. IMPRESSION: 1. No acute cardiopulmonary disease. Dictated by: Arben Chaparro M.D. on 02/06/2022 at 0:09 Approved by: Arben Chaparro M.D. on 02/06/2022 at 0:10
--- NOTE | 2022-02-05 23:50 | ED_ITS ---
HPI - SOB/Dyspnea General Chief Complaint: Shortness of Breath/Dyspnea Stated Complaint: Shortness of breath today Time Seen by Provider: 02/05/22 23:50 Source: patient Mode of arrival: Ambulatory Limitations: no limitations History of Present Illness HPI Narrative: Male smoke presents for evaluation of trouble taking a deep breath for many months. She states she was able to manage her symptoms and tolerate them up until a few days ago when she began huffing paint again. She denies any chest pain, cough, fever or chills. She has no runny nose or sore throat. She denies nausea, vomiting or diarrhea. She denies exposure to persons with known or suspected COVID. She states she has had similar episodes in the past after huffing and seems to improve with albuterol Related Data Previous Rx's Medication Instructions Recorded erythromycin 5 mg/gram (0.5 %) eye 1 applic OPHTHALMIC (EYE) Q8H 7 09/27/20 ointment Days #3.5 g triamcinolone acetonide 0.1 % 1 applic TOPICAL BID #30 g 09/27/20 topical cream mupirocin 2 % topical ointment 1 applic TOPICAL BID #30 g 04/04/21 imiquimod 5 % topical cream packet 1 applic TOPICAL 3XW #12 ea 09/24/21 mupirocin 2 % topical ointment 1 applictn TOP BID #15 gram 10/15/21 Allergies Allergy/AdvReac Type Severity Reaction Status Date / Time No Known Drug Allergies Allergy Verified 04/04/21 19:59 Review of Systems Review of Systems Narrative: GENERAL: Denies chills, fatigue, malaise, fever, sweats. HEENT: Denies sinus pain, ear pain, sore throat, difficulty swallowing, dizziness. RESPIRATORY: See HPI CARDIOVASCULAR: Denies chest pain, palpitations, orthopnea, edema, GASTROINTESTINAL: Denies nausea, vomiting, abdominal pain, diarrhea, constipation, melena. : Denies dysuria, frequency, incontinence, hematuria, urinary retention. MUSCULOSKELETAL: denies weakness, joint pain, or bony pain SKIN: Denies rash, skin lesions, or other NEUROLOGIC: Denies weakness, headache, numbness, change in speech, confusion, seizures, incoordination. PSYCHIATRIC: No concerning psychosocial issues. 12 point review of systems is negative except for those stated above Patient History Medical History Anxiety Skin rash Social History Smoking Status: Current every day smoker Smoking Status: Current every day smoker tobacco type: cigarettes alcohol intake frequency: a few times a month Substance Use Type: opiates, methamphetamine and other Exam Narrative Exam Narrative: GENERAL: [31] year old patient appears stated age. Well-developed patient, in mild distress. HEAD: Atraumatic. Normocephalic. EYES: Pupils equal round and reactive. Extraocular motions intact. No scleral icterus. No injection or drainage. ENT: Nose without bleeding, purulent drainage. Throat without erythema, tonsillar hypertrophy or exudate. Airway patent. NECK: Trachea midline. Non tender CARDIOVASCULAR: Regular rate and rhythm without murmurs, gallops, or rubs. RESPIRATORY: Clear to auscultation. Breath sounds equal bilaterally. No wheezes, rales, or rhonchi. GASTROINTESTINAL: Abdomen soft, non-tender, nondistended. EXTREMITIES: No edema or joint tenderness. BACK: Nontender without deformity or crepitance. No flank tenderness. NEURO: AOx3. SKIN: No rash or erythema of visible areas Initial Vital Signs Initial Vital Signs: Vital Signs Temperature 96.9 F L 02/05/22 22:10 Pulse Rate 78 02/05/22 22:10 Respiratory Rate 18 02/05/22 22:10 Blood Pressure 137/97 H 02/05/22 22:10 Pulse Oximetry 98 02/05/22 22:10 Course Orders Ordered: ED Orders 02/05/22 23:00 XR chest 2V Stat 02/06/22 01:05 COVID19 -Nasal RAPID/Pre-Proc Stat Discontinued Medications Albuterol (Albuterol Hfa Prepack) 1 box MISC SEEINSTR ONE Stop: 02/06/22 02:08 Last Admin: 02/06/22 02:17 Dose: 1 box Documented by: ALEJANDRO Albuterol/Ipratropium (Albuterol/Ipratropium 3 Ml Ampul) 3 ml INH NOW ONE Stop: 02/06/22 01:33 Last Admin: 02/06/22 01:46 Dose: 3 ml Documented by: ALEJANDRO Vital Signs Vital signs: Vital Signs - 8 hr 02/05/22 22:10 02/06/22 01:46 02/06/22 02:15 Temperature 96.9 F L Pulse Rate 78 78 Respiratory Rate 18 18 Blood Pressure 137/97 H Pulse Oximetry 98 98 98 02/06/22 02:34 Temperature Pulse Rate 71 Respiratory Rate 18 Blood Pressure 131/95 H Pulse Oximetry 98 MDM - SOB/Dyspnea Lab Data Labs: Lab Results 02/06/22 Range/Units 01:05 SARS-CoV-2 (PCR) Negative (Negative) Discharge Plan Departure Patient Disposition: Home Clinical Impression: Acute bronchospasm Activity Restrictions/Additional Instructions: *You have been diagnosed with [acute bronchospasm. As we discussed your history and physical exam are reassuring. Chest x-ray shows no significant findings and COVID swab is negative. Thankfully there is no indication for a large workup at this time *What to do: *Please continue to take your regular medications as directed. [ ] New medication prescriptions sent to your pharmacy: [ ] [ ] New medication written as a paper prescription [ ] No new medications given *Please follow up with your primary care provider in 2-3 days, call for an appointment. Let them know you were seen in the Emergency Department and that we ask that you be seen in follow up. We will electronically transmit a record of today's note if your PCP is in our system *If you do not have a primary care provider please contact the [facility] Resource line at [phone]. They will ask some questions about your medical history and help get you set up with a doctor in the community. *Return to Emergency Department if you should have any new, worsening or concerning symptoms, such as [fever greater than 101 F, shaking chills, worsening pain, persistent vomiting or other bothersome symptoms] Prescriptions: No Action erythromycin 5 mg/gram (0.5 %) ointment 1 applic ophthalmic (eye) Q8H 7 Days Qty: 3.5 2RF triamcinolone acetonide 0.1 % cream 1 applic topical BID Qty: 30 2RF mupirocin 2 % ointment 1 applic topical BID Qty: 30 0RF mupirocin 2 % ointment 1 applictn TOP BID Qty: 15 0RF imiquimod 5 % cream in packet 1 applic topical 3XW Qty: 12 0RF Referrals: Juliana Yeager MD [Primary Care Provider] -
[2022-02-06 01:24] LABS: COVID19 -Nasal RAPID Negative (Negative)
--- NOTE | 2022-02-06 01:32 | ED.SOB ---
HPI - SOB/Dyspnea General Chief Complaint: Shortness of Breath/Dyspnea Stated Complaint: Shortness of breath today Time Seen by Provider: 02/05/22 23:50 Source: patient Mode of arrival: Ambulatory Limitations: no limitations History of Present Illness HPI Narrative: 31-year-old female daily smoker presents with the chief complaint of the feeling of shortness of breath for many months. She denies any cough. She has had no runny nose or sore throat. She denies any chest pain, nausea, vomiting or diarrhea. She states that she had been doing quite well but recently started huffing paint again in her symptoms worsened in the aftermath. She states that she has no bronchospastic cough or production of sputum but with a deep breath she feels like she cannot get all of her air in. She states this has happened in the past when she was huffing in it tended to improve when she stopped the practice, and also was put on bronchodilators. She denies fever, chills or GI symptoms such as nausea, vomiting or diarrhea. She denies any dysuria, frequency or urgency Related Data Previous Rx's Medication Instructions Recorded erythromycin 5 mg/gram (0.5 %) eye 1 applic OPHTHALMIC (EYE) Q8H 7 09/27/20 ointment Days #3.5 g triamcinolone acetonide 0.1 % 1 applic TOPICAL BID #30 g 09/27/20 topical cream mupirocin 2 % topical ointment 1 applic TOPICAL BID #30 g 04/04/21 imiquimod 5 % topical cream packet 1 applic TOPICAL 3XW #12 ea 09/24/21 mupirocin 2 % topical ointment 1 applictn TOP BID #15 gram 10/15/21 Allergies Allergy/AdvReac Type Severity Reaction Status Date / Time No Known Drug Allergies Allergy Verified 04/04/21 19:59 Review of Systems Review of Systems Narrative: GENERAL: Denies chills, fatigue, malaise, fever, sweats. HEENT: Denies sinus pain, ear pain, sore throat, difficulty swallowing, dizziness. RESPIRATORY: Denies dyspnea, cough, wheezing, hemoptysis, sputum. CARDIOVASCULAR: Denies chest pain, palpitations, orthopnea, edema, GASTROINTESTINAL: Denies nausea, vomiting, abdominal pain, diarrhea, constipation, melena. : Denies dysuria, frequency, incontinence, hematuria, urinary retention. MUSCULOSKELETAL: denies weakness, joint pain, or bony pain SKIN: Denies rash, skin lesions, or other NEUROLOGIC: Denies weakness, headache, numbness, change in speech, confusion, seizures, incoordination. PSYCHIATRIC: No concerning psychosocial issues. 12 point review of systems is negative except for those stated above Patient History Medical History Anxiety Skin rash Social History Smoking Status: Current every day smoker Smoking Status: Current every day smoker tobacco type: cigarettes alcohol intake frequency: a few times a month Substance Use Type: opiates, methamphetamine and other Exam Narrative Exam Narrative: GENERAL: [31 year old patient appears stated age. Well-developed patient, in resting comfortably, no evidence of respiratory distress HEAD: Atraumatic. Normocephalic. EYES: Pupils equal round and reactive. Extraocular motions intact. No scleral icterus. No injection or drainage. ENT: Nose without bleeding, purulent drainage. Throat without erythema, tonsillar hypertrophy or exudate. Airway patent. NECK: Trachea midline. Non tender CARDIOVASCULAR: Regular rate and rhythm without murmurs, gallops, or rubs. RESPIRATORY: Clear to auscultation. Breath sounds equal bilaterally. No wheezes, rales, or rhonchi. GASTROINTESTINAL: Abdomen soft, non-tender, nondistended. EXTREMITIES: No edema or joint tenderness. BACK: Nontender without deformity or crepitance. No flank tenderness. NEURO: AOx3. SKIN: No rash or erythema of visible areas Initial Vital Signs Initial Vital Signs: Vital Signs Temperature 96.9 F L 02/05/22 22:10 Pulse Rate 78 02/05/22 22:10 Respiratory Rate 18 02/05/22 22:10 Blood Pressure 137/97 H 02/05/22 22:10 Pulse Oximetry 98 02/05/22 22:10 Course Orders Ordered: ED Orders 02/05/22 23:00 XR chest 2V Stat 02/06/22 01:05 COVID19 -Nasal RAPID/Pre-Proc Stat Discontinued Medications Albuterol (Albuterol Hfa Prepack) 1 box MISC SEEINSTR ONE Stop: 02/06/22 02:08 Last Admin: 02/06/22 02:17 Dose: 1 box Documented by: [email or web address] Albuterol/Ipratropium (Albuterol/Ipratropium 3 Ml Ampul) 3 ml INH NOW ONE Stop: 02/06/22 01:33 Last Admin: 02/06/22 01:46 Dose: 3 ml Documented by: ALEJANDRO Vital Signs Vital signs: Vital Signs - 8 hr 02/05/22 22:10 02/06/22 01:46 02/06/22 02:15 Temperature 96.9 F L Pulse Rate 78 78 Respiratory Rate 18 18 Blood Pressure 137/97 H Pulse Oximetry 98 98 98 02/06/22 02:34 Temperature Pulse Rate 71 Respiratory Rate 18 Blood Pressure 131/95 H Pulse Oximetry 98 MDM - SOB/Dyspnea Lab Data Labs: Lab Results 02/06/22 Range/Units 01:05 SARS-CoV-2 (PCR) Negative (Negative) Imaging Data Chest x-ray: Radiologist's Impression: Close Chest X-Ray (Signed) Arben Chaparro - 02/05/22 Chest/Abdomen X-ray (Signed) Arben Chaparro - 08/25/19 Launch?[place] [address] XRay Report Signed Patient: Lindy Aldridge MR#: [id number] : 1990 Acct:[id number] Age/Sex: 31 / F Date of Service: 02/05/22 Loc: Accession Number: [id number] ?? Procedure: XR chest 2V Ordering Provider: Darrian Hearn D.O. PROCEDURE:? XR CHEST 2V ? INDICATIONS:? shortness of breath ? TECHNIQUE:? 2 views of the chest were acquired.? ? COMPARISON:? [facility], , CHEST 1 VIEW, 11/17/2008, 0:21. ? FINDINGS:? ? Surgical changes and devices:? None.? ? Lungs and pleura:? Lungs are clear.? No pleural effusions or pneumothorax.? ? Mediastinum:? Mediastinal contours are normal.? Heart size is normal.? ? Bones and chest wall:? No suspicious bony abnormalities.? Soft tissues appear unremarkable.? ? IMPRESSION:? ? 1.? No acute cardiopulmonary disease. ? ? ? Dictated by: Arben Chaparro M.D. on 02/06/2022 at 0:09 ? ? Approved by: Arben Chaparro M.D. on 02/06/2022 at 0:10 ? [facility] Narrative Medical decision making narrative: Patient with reassuring history and physical exam including vital signs has significant improvement with above-stated therapies. No sign of respiratory distress, no hypoxemia. Symptoms started after huffing paint and improved with bronchodilators. No indication for further workup at this point. Return precautions given and questions answered to her apparent satisfaction Discharge Plan Departure Patient Disposition: Home Clinical Impression: Acute bronchospasm Activity Restrictions/Additional Instructions: *You have been diagnosed with [acute bronchospasm. As we discussed your history and physical exam are reassuring. Chest x-ray shows no significant findings and COVID swab is negative. Thankfully there is no indication for a large workup at this time *What to do: *Please continue to take your regular medications as directed. [ ] New medication prescriptions sent to your pharmacy: [ ] [ ] New medication written as a paper prescription [ ] No new medications given *Please follow up with your primary care provider in 2-3 days, call for an appointment. Let them know you were seen in the Emergency Department and that we ask that you be seen in follow up. We will electronically transmit a record of today's note if your PCP is in our system *If you do not have a primary care provider please contact the [facility] Resource line at [phone]. They will ask some questions about your medical history and help get you set up with a doctor in the community. *Return to Emergency Department if you should have any new, worsening or concerning symptoms, such as [fever greater than 101 F, shaking chills, worsening pain, persistent vomiting or other bothersome symptoms] Prescriptions: No Action erythromycin 5 mg/gram (0.5 %) ointment 1 applic ophthalmic (eye) Q8H 7 Days Qty: 3.5 2RF triamcinolone acetonide 0.1 % cream 1 applic topical BID Qty: 30 2RF mupirocin 2 % ointment 1 applic topical BID Qty: 30 0RF mupirocin 2 % ointment 1 applictn TOP BID Qty: 15 0RF imiquimod 5 % cream in packet 1 applic topical 3XW Qty: 12 0RF Referrals: Juliana Yeager MD [Primary Care Provider] -
[2022-02-06 01:46] VITALS: PULSE 78; RESP 18; O2SAT 98
[2022-02-06] MEDS: ALBUTEROL/IPRATROPIUM 3 ML AMPUL INH (01:46)
[2022-02-06 02:15] VITALS: O2SAT 98
[2022-02-06] MEDS: ALBUTEROL HFA PREPACK 1 BOX MISC (02:17)
[2022-02-06 02:34] VITALS: BP 131/95; PULSE 71; RESP 18; O2SAT 98
== END 2022-02-06 02:35 | disposition home or self-care (01) ==
PROVIDERS: Emergency Provider Emergency Medicine; PCP Family Medicine
DX: J98.01 Acute bronchospasm (principal); Z20.822 Contact with and (suspected) exposure to COVID-19
CPT/HCPCS: 71046; 87635; 94640; 99283; C9803

== ENCOUNTER 2022-03-28 17:02 | Emergency (ER) | payer OTHER, MEDICAID, SELFPAY ==
[2022-03-28 17:14] VITALS: BP 170/94; PULSE 86; RESP 20; TEMP 36.1; O2SAT 100
--- NOTE | 2022-03-28 17:21 | PC.NURSE ---
Pt states that she suffers from rashes frequently however yesterday developed extensive red scaling rash weeping in some areas on bilateral legs, tops and sides of feet, abdomen, chest, neck and upper and lower back. states itchy. using antifungal cream which she states made it worse. appears painful. afebrile.
--- NOTE | 2022-03-28 17:23 | ED.SKABFB ---
HPI - Skin/Abscess/Foreign Bdy General Chief complaint: Skin/Abscess/Foreign Body Stated complaint: burning blister all over her legs and stomach Time Seen by Provider: 03/28/22 17:15 Source: patient Mode of arrival: Ambulatory Limitations: no limitations History of Present Illness HPI narrative: 31-year-old female who is here for evaluation of a blistering rash on her legs and her stomach in her back. She states that it does itch somewhat but it rai more than anything else. She started to have some irritation last evening but woke up this morning with a rash away that it is now. No vomiting. No new exposures. No lotions. No recent antibiotics. No travel. She has had some underlying skin issues in the past but has never had anything like this. She stated that a prescription for steroids was sent to local pharmacy by her primary doctor but she wanted to have this evaluated before starting this prescription. She does have a prescription for topical steroids at home which she tried but this did not improve her symptoms. Related Data Previous Rx's Medication Instructions Recorded erythromycin 5 mg/gram (0.5 %) eye 1 applic ophthalmic (eye) Q8H 7 09/27/20 ointment days #3.5 grams triamcinolone acetonide 0.1 % 1 applic topical BID #30 grams 09/27/20 topical cream mupirocin 2 % topical ointment 1 applic topical BID #30 grams 04/04/21 imiquimod 5 % topical cream packet 1 applic topical 3XW #12 ea 09/24/21 mupirocin 2 % topical ointment 1 applictn topical BID #15 grams 10/15/21 Allergies Allergy/AdvReac Type Severity Reaction Status Date / Time No Known Drug Allergies Allergy Verified 04/04/21 19:59 Review of Systems Constitutional Constitutional: Denies fever(s) ENT Ears, Nose, Mouth, and Throat: Denies lip swelling and Denies tongue swelling Cardiovascular Cardiovascular: Denies dyspnea Respiratory Respiratory: Denies cough and Denies dyspnea Musculoskeletal Musculoskeletal: Denies myalgias Integumentary/Breasts Skin/Breast: Reports rash Hematologic/Lymphatic On Anticoagulants: No Allergic/Immunologic Allergic/Immunologic: Reports urticaria, Denies lip swelling and Denies tongue swelling Patient History Medical History Anxiety Skin rash Social History Smoking Status: Current every day smoker Smoking Status: Current every day smoker tobacco type: cigarettes alcohol intake frequency: a few times a month Substance Use Type: opiates, methamphetamine and other Exam Initial Vital Signs Initial Vital Signs: Vital Signs Temperature 96.9 F L 03/28/22 17:14 Pulse Rate 86 03/28/22 17:14 Respiratory Rate 20 03/28/22 17:14 Blood Pressure 170/94 H 03/28/22 17:14 Pulse Oximetry 100 03/28/22 17:14 Oxygen Delivery Method 03/28/22 17:14 Const General: cooperative, well developed and No ill appearing HENMT Head: normal to inspection and normocephalic Mouth: oral mucosae normal, lip normal, tongue normal, moist mucous membranes and No drooling Eyes Conjunctivae: conjunctivae normal Resp Effort & Inspection: normal respiratory effort Cardio Rate: regular rate Skin Other: Patient with a rash located mostly on her lower extremities but also located on her lower abdomen and on her lower back and shoulders. It is raised. There are areas of pustules. No drainage. No crusting. The entire rashes in the same stage of healing. She is no mucous membrane involvement. No rash on the palms of her hands or on the soles of her feet. Oral mucosa is unremarkable. Neuro General: patient alert, patient awake and moves all extremities Extrem General: No edema Course Vital Signs Vital signs: Vital Signs - 8 hr 03/28/22 17:14 Temperature 96.9 F L Pulse Rate 86 Respiratory Rate 20 Blood Pressure 170/94 H Pulse Oximetry 100 Oxygen Delivery Method Room Air MDM - Skin/Abscess/Foreign Bdy MDM Narrative Medical decision making narrative: Unsure the exact etiology of the patient's symptoms although it is not consistent with chickenpox, zoster, TEN, SSS, Lyme disease, Roman mountain spotted fever. It is very well demarcated on her back that would be consistent with wearing a bathing suit however the patient states that the last time she wore bathing suit was several days ago and she was not sunburned at the time. The rash is also not completely isolated to sun-exposed areas. She reports no new exposures. Has no signs of any superficial infections. Plan to be is to start her on a prednisone taper. I contacted [facility] and they did not have a prescription for steroids from her primary provider. I did call in a prescription for the patient. Will send home with steroids as treatment for now although she was given strict return precautions. She expressed understanding and agreement. Discharge Plan Departure Patient Disposition: Home Clinical Impression: Skin rash Instructions: DI for Rash Activity Restrictions/Additional Instructions: I did call in a prescription for prednisone to [facility] here in [place]. Please start taking it as directed. Return to the emergency department for any worsening rash, fevers, problems breathing or any other new symptoms. Prescriptions: No Action erythromycin 5 mg/gram (0.5 %) ointment 1 applic ophthalmic (eye) Q8H 7 Days Qty: 3.5 2RF triamcinolone acetonide 0.1 % cream 1 applic topical BID Qty: 30 2RF mupirocin 2 % ointment 1 applic topical BID Qty: 30 0RF mupirocin 2 % ointment 1 applictn TOP BID Qty: 15 0RF imiquimod 5 % cream in packet 1 applic topical 3XW Qty: 12 0RF Referrals: Juliana Yeager MD [Primary Care Provider] -
== END 2022-03-28 17:32 | disposition home or self-care (01) ==
PROVIDERS: Emergency Provider Emergency Medicine; PCP Family Medicine
DX: R21 Rash and other nonspecific skin eruption (principal)
CPT/HCPCS: 99281

== ENCOUNTER 2022-04-27 07:57 | Emergency (ER) | payer OTHER, MEDICAID, SELFPAY | END 2022-04-27 08:35 | disposition left against medical advice (07) | PROVIDERS: Emergency Provider Emergency Medicine; PCP Family Medicine ==

== ENCOUNTER 2022-12-05 03:36 | Emergency (ER) | payer OTHER, MEDICAID, SELFPAY ==
--- NOTE | 2022-12-05 03:38 | ED_ITS ---
HPI - General Adult General Chief complaint: Extremity Problem,Nontraumatic Stated complaint: BOTH LEGS SWOLLEN Time Seen by Provider: 12/05/22 03:38 History of Present Illness HPI narrative: 32-year-old female daily smoker with history of methamphetamine and fentanyl abuse (never IV however) presents with a chief complaint of swelling of her bilateral lower extremities over the past week or so. She denies other symptoms such as dizziness, weakness or lightheadedness. She has had no chest pain, shortness of breath or cough. She reports general poor health for quite some time and specifically mentions her most recent hospitalization was at [place] in August. She states at the time she had been diagnosed with a tubo-ovarian abscess but they were unable to perform surgery because her heart is poor. She states that she had abdominal swelling at the time and fluid was taken off with a paracentesis and diuretics. She states that she is had this purplish reticular mottling of her bilateral lower extremities for quite some time and that what we are seeing is not new. She states that she does not want to be here and would refuse admission regardless of our findings, she is here at the request of her friends. She denies any weight gain. She is had no fever or chills. She denies abdominal pain or bloating nor any change in bowel habits. She is had no dysuria, frequency or urgency Related Data Previous Rx's Medication Instructions Recorded erythromycin 5 mg/gram (0.5 %) eye 1 applic ophthalmic (eye) Q8H 7 09/27/20 ointment days #3.5 grams triamcinolone acetonide 0.1 % 1 applic topical BID #30 grams 09/27/20 topical cream mupirocin 2 % topical ointment 1 applic topical BID #30 grams 04/04/21 imiquimod 5 % topical cream packet 1 applic topical 3XW #12 ea 09/24/21 mupirocin 2 % topical ointment 1 applictn topical BID #15 grams 10/15/21 furosemide 40 mg tablet (Lasix) 40 mg PO DAILY #7 tabs 12/05/22 Allergies Allergy/AdvReac Type Severity Reaction Status Date / Time No Known Drug Allergies Allergy Verified 04/04/21 19:59 Review of Systems Review of Systems Narrative: GENERAL: Denies chills, fatigue, malaise, fever, sweats. HEENT: Denies sinus pain, ear pain, sore throat, difficulty swallowing, dizziness. RESPIRATORY: Denies dyspnea, cough, wheezing, hemoptysis, sputum. CARDIOVASCULAR: See HPI GASTROINTESTINAL: Denies nausea, vomiting, abdominal pain, diarrhea, constipation, melena. : Denies dysuria, frequency, incontinence, hematuria, urinary retention. MUSCULOSKELETAL: denies weakness, joint pain, or bony pain SKIN: See HPI NEUROLOGIC: Denies weakness, headache, numbness, change in speech, confusion, seizures, incoordination. PSYCHIATRIC: No concerning psychosocial issues. 12 point review of systems is negative except for those stated above Patient History Medical History Anxiety Skin rash Social History Smoking Status: Current every day smoker Smoking Status: Current every day smoker tobacco type: cigarettes alcohol intake frequency: a few times a month Substance Use Type: opiates, methamphetamine and other Exam Narrative Exam Narrative: GENERAL: [32] year old patient appears stated age. Well-developed patient, in mild distress. Tearful, no obvious pain HEAD: Atraumatic. Normocephalic. EYES: Pupils equal round and reactive. Extraocular motions intact. No scleral icterus. No injection or drainage. ENT: Nose without bleeding, purulent drainage. Throat without erythema, tonsillar hypertrophy or exudate. Airway patent. NECK: Trachea midline. Non tender CARDIOVASCULAR: Regular rate and rhythm without murmurs, gallops, or rubs. RESPIRATORY: Clear to auscultation. Breath sounds equal bilaterally. No wheezes, rales, or rhonchi. GASTROINTESTINAL: Abdomen soft, non-tender, slight distention, no evidence of ascites EXTREMITIES: 1+ pitting edema and reticular mottling from feet to upper thighs, patient states this appearance is chronic and this is not new, she denies any numbness or tingling BACK: Nontender without deformity or crepitance. No flank tenderness. NEURO: AOx3. SKIN: No rash or erythema of visible areas Initial Vital Signs Initial Vital Signs: Vital Signs Temperature 98 F 12/05/22 04:05 Pulse Rate 100 H 12/05/22 04:05 Respiratory Rate 16 12/05/22 04:05 Blood Pressure 156/100 H 12/05/22 04:05 Pulse Oximetry 97 12/05/22 04:05 Oxygen Delivery Method Room Air 12/05/22 04:05 Course Orders Ordered: Discontinued Medications Furosemide (Furosemide 40 Mg Tablet) 40 mg PO NOW ONE Stop: 12/05/22 06:58 Last Admin: 12/05/22 07:07 Dose: 40 mg Documented By: KALLIE Vital Signs Vital signs: Vital Signs - 8 hr 12/05/22 04:05 Temperature 98 F Pulse Rate 100 H Respiratory Rate 16 Blood Pressure 156/100 H Pulse Oximetry 97 Oxygen Delivery Method Room Air Medical Decision Making Lab Data 12/05/22 04:40 12/05/22 04:40 Labs: Lab Results 12/05/22 12/05/22 12/05/22 Range/Units 04:40 04:40 04:40 WBC 6.9 (4.5-11.0) X10^3/uL RBC 4.86 (4.0-5.2) X10^6/uL Hgb 13.6 (12.0-16.0) g/dL Hct 41.9 (36-46) % MCV 86.3 (80-100) fL MCH 28.1 (26-34) PG MCHC 32.5 (30-36) % RDW 15.9 H (11.6-14.8) % Plt Count 174 (150-400) X10^3/uL Neut % (Auto) 49.7 L (50-75) % Lymph % (Auto) 35.9 (25-40) % [place] % (Auto) 8.9 (3-14) % Eos % (Auto) 4.6 H (2-4) % Baso % (Auto) 0.9 (0-2) % Neut # (Auto) 3400 (6472-1573) /uL Lymph # (Auto) 2500 (8095-2966) /uL [place] # (Auto) 600 (0-900) /uL Eos # (Auto) 300 (0-450) /uL Baso # (Auto) 100 (0-100) /uL D-Dimer 1661 H (<500) ng/ml Sodium 139 (137-145) mmol/L Potassium 4.1 (3.4-5.1) mmol/L Chloride 103 (98-107) mmol/L Carbon Dioxide 29 (22-32) mmol/L BUN 33 H (7-17) mg/dL Creatinine 0.76 (0.52-1.04) mg/dL Estimated GFR > 60 (>60) mL/min BUN/Creatinine Ratio 43.4 H (6-22) Glucose 73 (70-100) mg/dL Lactate (0.7-2.1) mmol/L Calcium 8.6 (8.4-10.2) mg/dL Magnesium 1.8 (1.6-2.3) mg/dL Total Bilirubin 0.7 (0.2-1.3) mg/dL AST 62 H (14-36) IU/L ALT 41 H (<35) IU/L Alkaline Phosphatase 103 (38-126) U/L Total Creatine Kinase 162 H (30-135) U/L CK-MB (CK-2) 1.87 (<2.37) ng/mL CK-MB (CK-2) Rel Index 1.2 L (1.5-5.0) % Troponin I < 0.012 (0.01-0.034) ng/mL C-Reactive Protein < 0.5 (<1.0) mg/dL NT-Pro-B Natriuret Pep 1100 H (<125) pg/mL Total Protein 7.9 (6.3-8.2) g/dL Albumin 4.1 (3.5-5.0) g/dL Globulin 3.8 (1.7-4.1) g/dL Albumin/Globulin Ratio 1.1 (1.0-2.8) 12/05/22 Range/Units 04:40 WBC (4.5-11.0) X10^3/uL RBC (4.0-5.2) X10^6/uL Hgb (12.0-16.0) g/dL Hct (36-46) % MCV (80-100) fL MCH (26-34) PG MCHC (30-36) % RDW (11.6-14.8) % Plt Count (150-400) X10^3/uL Neut % (Auto) (50-75) % Lymph % (Auto) (25-40) % [place] % (Auto) (3-14) % Eos % (Auto) (2-4) % Baso % (Auto) (0-2) % Neut # (Auto) (0387-4108) /uL Lymph # (Auto) (2734-6376) /uL [place] # (Auto) (0-900) /uL Eos # (Auto) (0-450) /uL Baso # (Auto) (0-100) /uL D-Dimer (<500) ng/ml Sodium (137-145) mmol/L Potassium (3.4-5.1) mmol/L Chloride (98-107) mmol/L Carbon Dioxide (22-32) mmol/L BUN (7-17) mg/dL Creatinine (0.52-1.04) mg/dL Estimated GFR (>60) mL/min BUN/Creatinine Ratio (6-22) Glucose (70-100) mg/dL Lactate 0.9 (0.7-2.1) mmol/L Calcium (8.4-10.2) mg/dL Magnesium (1.6-2.3) mg/dL Total Bilirubin (0.2-1.3) mg/dL AST (14-36) IU/L ALT (<35) IU/L Alkaline Phosphatase (38-126) U/L Total Creatine Kinase (30-135) U/L CK-MB (CK-2) (<2.37) ng/mL CK-MB (CK-2) Rel Index (1.5-5.0) % Troponin I (0.01-0.034) ng/mL C-Reactive Protein (<1.0) mg/dL NT-Pro-B Natriuret Pep (<125) pg/mL Total Protein (6.3-8.2) g/dL Albumin (3.5-5.0) g/dL Globulin (1.7-4.1) g/dL Albumin/Globulin Ratio (1.0-2.8) Point of Care Testing Test Results Negative Urine Dip Bedside Urine Glucose Negative Bedside Urine Bilirubin - Negative Bedside Urine Ketone - Negative Urine Specific [place] 1.030 Bedside Urine Occult Blood - Negative Bedside Urine pH 6.0 Bedside Urine Protein +/- 15 Bedside Urine Urobilinogen - Negative Bedside Urine Nitrite - Negative Bedside Urine Leukocytes - Negative Esterase Point of care testing: Point of Care Testing Test Results Negative Urine Dip Bedside Urine Glucose Negative Bedside Urine Bilirubin - Negative Bedside Urine Ketone - Negative Urine Specific [place] 1.030 Bedside Urine Occult Blood - Negative Bedside Urine pH 6.0 Bedside Urine Protein +/- 15 Bedside Urine Urobilinogen - Negative Bedside Urine Nitrite - Negative Bedside Urine Leukocytes - Negative Esterase MDM Narrative Medical decision making narrative: [32] year old patient presents with lower extremity edema Multiple etiologies for patient's symptoms considered including, but not limited to: [CHF, peripheral edema, renal failure, infection, versus other] Prior Charts reviewed in our EMR Primary Historian: patient Labs reviewed and interpreted by myself: No leukocytosis or left shift, no signs of anemia, electrolytes and renal function within normal. D-dimer is elevated at 16 100+, BNP 1100 Imaging reviewed: No PE or dissection, incidental noting of pulmonary artery and ventricular dilatation Patient's symptoms improved over duration of stay with above-stated therapies. Findings and discharge diagnosis discussed with patient/family followed by verbalization of understanding Return precautions discussed with patient/family whom verbalize understanding of diagnosis and plan Discharge Plan Departure Patient Disposition: Home Clinical Impression: Lower extremity edema Instructions: DI for Peripheral Edema -- Bilateral Activity Restrictions/Additional Instructions: *You have been diagnosed with [bilateral lower extremity edema] *What to do: *Please continue to take your regular medications as directed. [ x] New medication prescriptions sent to your pharmacy: [[facility] ] [ ] New medication written as a paper prescription [ ] No new medications given *Please follow up with your primary care provider in 2-3 days, call for an appointment. Let them know you were seen in the Emergency Department and that we ask that you be seen in follow up. We will electronically transmit a record of today's note if your PCP is in our system *If you do not have a primary care provider please contact the [facility] Resource line at [phone]. They will ask some questions about your medical history and help get you set up with a doctor in the community. *Return to Emergency Department if you should have any new, worsening or concerning symptoms, such as [fever greater than 101 F, shaking chills, w orsening pain, persistent vomiting or other bothersome symptoms] Prescriptions: New furosemide [Lasix] 40 mg tablet 40 mg PO DAILY Qty: 7 0RF No Action erythromycin 5 mg/gram (0.5 %) ointment 1 applic ophthalmic (eye) Q8H 7 Days Qty: 3.5 2RF triamcinolone acetonide 0.1 % cream 1 applic topical BID Qty: 30 2RF mupirocin 2 % ointment 1 applic topical BID Qty: 30 0RF mupirocin 2 % ointment 1 applictn TOP BID Qty: 15 0RF imiquimod 5 % cream in packet 1 applic topical 3XW Qty: 12 0RF Referrals: Juliana Yeager MD [Primary Care Provider] - Stand Alone Forms: Patient Portal/API
[2022-12-05 04:05] VITALS: BP 156/100; PULSE 100; RESP 16; TEMP 36.6; O2SAT 97
[2022-12-05 05:05] LABS: Add Manual Diff / Slide Review NO; Basophils Absolute Auto 100 /uL (0-100); Basophils Percent Auto 0.9 % (0-2); Eosinophils Absolute Auto 300 /uL (0-450); Eosinophils Percent Auto 4.6 % (2-4); Hematocrit 41.9 % (36-46); Hemoglobin 13.6 g/dL (12.0-16.0); Lymphocytes Absolute Auto 2500 /uL (1100-4500); Lymphocytes Percent Auto 35.9 % (25-40); Mean Corpuscular HGB Conc 32.5 % (30-36); Mean Corpuscular Hemoglobin 28.1 PG (26-34); Mean Corpuscular Volume 86.3 fL (80-100); Monocytes Absolute Auto 600 /uL (0-900); Monocytes Percent Auto 8.9 % (3-14); Neutrophils Absolute Auto 3400 /uL (1500-7000); Neutrophils Percent Auto 49.7 % (50-75); Platelet Count 174 X10^3/uL (150-400); Red Blood Cell Count 4.86 X10^6/uL (4.0-5.2); Red Cell Distribution Width 15.9 % (11.6-14.8); White Blood Cell Count 6.9 X10^3/uL (4.5-11.0)
[2022-12-05 05:08] LABS: D Dimer 1661 ng/ml (<500)
[2022-12-05 05:12] LABS: Alanine Aminotransferase 41 IU/L (<35); Albumin 4.1 g/dL (3.5-5.0); Albumin Globulin Ratio 1.1 (1.0-2.8); Alkaline Phosphatase 103 U/L (38-126); Aspartate Aminotransferase 62 IU/L (14-36); BUN Creatinine Ratio 43.4 (6-22); Bilirubin Total 0.7 mg/dL (0.2-1.3); Blood Urea Nitrogen 33 mg/dL (7-17); C-Reactive Protein Quant < 0.5 mg/dL (<1.0); Calcium 8.6 mg/dL (8.4-10.2); Carbon Dioxide 29 mmol/L (22-32); Chloride 103 mmol/L (98-107); Creatine Kinase 162 U/L (30-135); Estimated Glomerular Filt Rate > 60 mL/min (>60); Globulin 3.8 g/dL (1.7-4.1); Glucose 73 mg/dL (70-100); HEMOLYSIS 26 (0-50); Lactate (Lactic Acid) 0.9 mmol/L (0.7-2.1); Magnesium 1.8 mg/dL (1.6-2.3); Potassium 4.1 mmol/L (3.4-5.1); Sodium 139 mmol/L (137-145); Total Protein 7.9 g/dL (6.3-8.2)
--- NOTE | 2022-12-05 05:19 | DI.CT.S_ITS ---
PROCEDURE: CT ANGIO CHEST ABDOMEN PELVIS INDICATIONS: dissection protocol TECHNIQUE: Precontrast 5 mm thick sections acquired from the lung apices to the iliac crests. After the administration of intravenous contrast, 2.5 mm thick sections again acquired from the lung apices to the iliac crests. Maximum intensity projection (MIP) oblique sagittal and coronal reformats were then acquired. For radiation dose reduction, the following was used: automated exposure control. COMPARISON: None. FINDINGS: Image quality: Good Lungs and pleura: No pleural effusion. No dense consolidation. This patient does not meet age criteria for Fleischner follow-up guidelines. Mediastinum, heart, and esophagus: No evidence of intramural hematoma. There is no aortic dissection no hiatal hernia. No pulmonary embolism. Incidental note of right atrial dilation, right ventricle dilation, and apik-en-gwnxiiki dilation of the main pulmonary artery measuring 3.7 cm. This is abnormal for age. No pathologic adenopathy by size criteria. Chest wall and thyroid: Unremarkable Solid organs: Liver is unremarkable. Gallbladder is under distended. No pathologic dilation of the biliary tree or pancreatic duct. No splenomegaly. No adrenal nodules. There is likely adrenal thickening. No hydronephrosis. Vessels and lymph nodes: No abdominal aortic aneurysm. No pathologic adenopathy by size criteria. Bowel and peritoneum: Normal appendix. No small bowel obstruction. No pathologic ascites. Moderate stool burden. Body wall: Small fat containing umbilical hernia. Pelvis: IUD is in place. Bladder is unremarkable. Reproductive organs are not well evaluated on CT, consider ultrasound there is concern for pelvic pathology. Bones: No acute or suspicious osseous finding. Suspected left posterior iliac bone island. IMPRESSION: No aortic dissection or intramural hematoma identified. No acute abnormality in the chest, abdomen, or pelvis. Incidental note made of abnormal right heart and main pulmonary artery dilation. Correlate with clinical history and consider cardiology consultation. Other findings as above Agree with preliminary report. Dictated by: Humble Gonsalves M.D. on 12/05/2022 at 8:10 Approved by: Humble Gonsalves M.D. on 12/05/2022 at 8:18
[2022-12-05 05:21] LABS: NT-proBNP (BNP-Adult 18+) 1100 pg/mL (<125); Troponin I < 0.012 ng/mL (0.01-0.034)
[2022-12-05 05:25] LABS: CKMB % Relative Index 1.2 % (1.5-5.0); Creatine Kinase MB 1.87 ng/mL (<2.37)
[2022-12-05 07:05] VITALS: PULSE 104; O2SAT 91
[2022-12-05 07:06] VITALS: BP 149/95; PULSE 101; O2SAT 91
[2022-12-05 07:07] VITALS: BP 149/95; PULSE 100; RESP 16; TEMP 36.6; O2SAT 97
[2022-12-05] MEDS: FUROSEMIDE 40 MG TABLET PO (07:07)
== END 2022-12-05 07:43 | disposition home or self-care (01) ==
PROVIDERS: Emergency Provider Emergency Medicine; PCP Family Medicine
DX: R60.0 Localized edema (principal); R79.89 Other specified abnormal findings of blood chemistry
CPT/HCPCS: 36415; 71275; 74174; 80053; 81003; 81025; 82550; 82553; 83605; 83735; 83880; 84484; 85025; 85379; 86140; 87040; 99284; Q9967

== ENCOUNTER → 2023-09-29 16:30 | Outpatient (CLI) | payer OTHER, MEDICAID, SELFPAY ==
--- NOTE | 2023-09-29 | DI.US.S_ITS ---
PROCEDURE: US PELVIC COMPLETE INDICATIONS: TUBO-OVARIAN ABSCESS TECHNIQUE: Real-time scanning was performed of the pelvic organs, with image documentation. Additional endovaginal scanning was necessary due to incomplete visualization of the adnexal and endometrial structures by transabdominal scanning. COMPARISON: [facility], , PELVIC COMPLETE, 07/26/2011, 9:45. FINDINGS: Uterus: Uterus is anteverted and normal in size at 7.2 x 3.5 x 4.1 cm. The myometrium is homogeneous. The endometrium measures 8 mm combined thickness. The IUD is seen at its expected location. Ovaries: The right ovary measures 3.3 x 2.3 x 2.8 cm, with a calculated ovarian volume of 11.1 cc. The left ovary measures 3.2 x 2 x 2.3 cm, with a calculated ovarian volume of 7.8 cc. The ovaries have a normal sonographic appearance. More than 12 follicles can be seen in each ovary. No adnexal masses are seen. No abnormal fluid collections can be seen within the adnexal regions. Other: A small amount of free fluid can be seen within the pelvic cul-de-sac. IMPRESSION: Negative for tubo-ovarian abscess. A small amount of free fluid can be seen within the pelvic cul-de-sac. No abnormal fluid collections can be seen within the adnexa regions. No adnexal masses are seen. More than 12 follicles can be seen involving each ovary, which is consistent with polycystic ovarian syndrome. The IUD is seen at its expected location. We strive to produce accurate, complete, and clear reports of imaging services. To assist us in improving patient care, this report was composed using standard report templates and voice recognition software. Therefore, it may contain abnormal punctuation, insertions and/or omissions. Occasional wrong-word or sound-alike substitutions may occur. Though we review the report and make efforts to correct it, we do recommend that the report be read carefully in proper context to recognize any text inaccuracies. Dictated by: James Myers M.D. on 09/30/2023 at 11:02 Approved by: James Myers M.D. on 09/30/2023 at 11:04
== END ==
PROVIDERS: PCP Family Medicine; Referring Provider Family Medicine; Visit Provider Family Medicine
DX: N70.93 Salpingitis and oophoritis, unspecified (principal); Z97.5 Presence of (intrauterine) contraceptive device
CPT/HCPCS: 76830; 76856

== ENCOUNTER → 2023-10-20 14:49 | Outpatient (CLI) | payer OTHER, MEDICAID, SELFPAY ==
--- NOTE | 2023-10-20 14:51 | DI.RAD.S_ITS ---
PROCEDURE: XR CHEST 2V INDICATIONS: pulmonary hypertension TECHNIQUE: 2 views of the chest were acquired. COMPARISON: [facility], CR, XR CHEST 2V, 02/05/2022, 22:50. FINDINGS: Surgical changes and devices: None. Lungs and pleura: Lungs are clear. No pleural effusions or pneumothorax. Mediastinum: Mediastinal contours are normal. Heart size is markedly enlarged, as before. Bones and chest wall: No suspicious bony abnormalities. Soft tissues appear unremarkable. IMPRESSION: Cardiomegaly redemonstrated. No acute pulmonary findings. Dictated by: Carmencita Diaz M.D. on 10/20/2023 at 17:39 Approved by: Carmencita Diaz M.D. on 10/20/2023 at 17:40
[2023-10-20 15:53] LABS: BUN Creatinine Ratio 32.5 (6-22); Blood Urea Nitrogen 25 mg/dL (7-17); Calcium 9.4 mg/dL (8.4-10.2); Carbon Dioxide 27 mmol/L (22-32); Chloride 100 mmol/L (98-107); Estimated Glomerular Filt Rate > 60 mL/min (>60); Glucose 97 mg/dL (70-100); HEMOLYSIS < 15 (0-50); Potassium 4.4 mmol/L (3.4-5.1); Sodium 134 mmol/L (137-145)
[2023-10-20 16:00] LABS: NT-proBNP (BNP-Adult 18+) 1770 pg/mL (<125)
[2023-10-20 17:44] LABS: HIV 1 & 2 Ab/Ag 4th Gen Combo NEGATIVE (NEGATIVE)
[2023-10-26 15:09] LABS: ANA Screen, IFA Negative (.)
== END ==
PROVIDERS: PCP Family Medicine; Referring Provider Internal Medicine Critical Care Medicine; Visit Provider Internal Medicine Critical Care Medicine
DX: I27.20 Pulmonary hypertension, unspecified (principal); I51.7 Cardiomegaly; F15.10 Other stimulant abuse, uncomplicated
CPT/HCPCS: 36415; 71046; 80048; 83880; 86038; 87389; 99215

== ENCOUNTER 2023-10-24 08:23 | Emergency (ER) | payer OTHER, MEDICAID, SELFPAY ==
[2023-10-24 08:28] VITALS: BP 109/78; PULSE 80; RESP 24; TEMP 36.1; O2SAT 95; BMI 30.9
--- NOTE | 2023-10-24 09:07 | PC.NURSE ---
Pt was brought to ed today with her sister because she is going through opiate withdrawal. Pt last used fentanyl on sunday 10/22 and began feeling sx of detox yesterday afternoon. Pt states that she has the chills and cannot get warm, nausea, h\a and reports 10\10 pain all over her body. Pt described pain as a throbbing/crushing pain all over her body and feels like she is very sweaty. Pt states, I am so miserable right now. Pt skin is cool and clammy. Pt reports that she is seeking detox/rehab. HX of pulmonary HTN and enlarged heart. Sister confirms that pt's health has declined over the past year. Sister at bedside. Pt given warm blankets and lights in room dimmed for comfort.
--- NOTE | 2023-10-24 10:08 | ED_ITS ---
HPI - Nausea/Vomiting/Diarrhea General Chief complaint: Nausea/Vomiting/Diarrhea Stated complaint: opioids detox Time Seen by Provider: 10/24/23 10:02 Source: patient Mode of arrival: Wheelchair Limitations: no limitations History of Present Illness HPI Narrative: 33-year-old female with history of fentanyl and methadone amphetamine use who presents with complaint of withdrawals. Patient states last fentanyl use was yesterday, methamphetamine use was several days before that. Patient describes feeling warm, sweaty, nausea and vomiting, states that she hurts all over. Has had some diarrhea. Denies any urinary symptoms. No new rashes or skin changes. Patient has reached out to multiple detox facilities but no availability. They did [facility]. They can potentially have an appointment this afternoon but she presents for symptom treatment currently. Patient states that she does not need medical clearance at this time. She denies any prescription medications are known medical issues otherwise. Denies any prior surgeries. No known drug allergies. Does smoke tobacco daily, occasional alcohol, uses marijuana, fentanyl and methamphetamines. She is accompanied by her friend here today who is also her ride and helping her to coordinate an appointment with [place] [facility]. Related Data Previous Rx's Medication Instructions Recorded furosemide 40 mg tablet (Lasix) 40 mg PO DAILY #7 tabs 12/05/22 ondansetron 4 mg disintegrating 4 mg PO Q6H PRN nausea and 10/24/23 tablet vomiting #10 tabs Allergies Allergy/AdvReac Type Severity Reaction Status Date / Time No Known Drug Allergies Allergy Verified 07/28/23 11:58 Review of Systems Review of Systems ROS Unobtainable: All systems reviewed & are unremarkable except as noted in HPI and below Patient History Medical History Skin rash Anxiety Social History Smoking Status: Current every day smoker Smoking Status: Current every day smoker tobacco type: cigarettes and vaping alcohol intake frequency: a few times a month Substance Use Type: marijuana, opiates, methamphetamine and other Exam Narrative Exam Narrative: GENERAL: Alert and oriented x three, female in moderate distress. Diaphoresis. HEENT: Head normocephalic, atraumatic, EOMI, pupils reactive, face symmetric, moist mucous membranes NECK: Supple, full range of motion CARDIOVASCULAR: Regular rate and rhythm without murmurs, rubs or gallops. RESPIRATORY: Breath sounds equal bilaterally, no wheezes rales or rhonchi. ABDOMEN: Soft, nontender. Nondistended. Normoactive bowel sounds all 4 quadrants. No guarding or rebound, rigidity, no mass : No CVA tenderness EXTREMITIES: Normal range of motion, no clubbing or edema. Neurovascularly intact NEUROLOGICAL: Cranial nerves II through XII grossly intact. Moving all extremities SKIN: Warm, dry, no petechiae, no rashes or lesions. Initial Vital Signs Initial Vital Signs: Vital Signs Temperature 97.0 F L 10/24/23 08:28 Pulse Rate 80 10/24/23 08:28 Respiratory Rate 24 10/24/23 08:28 Blood Pressure 109/78 10/24/23 08:28 Pulse Oximetry 95 10/24/23 08:28 Oxygen Delivery Method Room Air 10/24/23 08:28 Course Orders Ordered: ED Orders 10/24/23 11:00 CMP [Comprehensive Metabolic Panel] Stat Lipase Stat 10/24/23 11:28 CBC Auto Diff [Complete Blood Count AUTO DIFF] Stat Discontinued Medications Sodium Chloride (Normal Saline 0.9%) 1,000 mls @ 1,000 mls/hr IV BOLUS ONE Stop: 10/24/23 11:42 Last Admin: 10/24/23 11:17 Dose: 1,000 mls/hr Documented By: MPO Lorazepam (Lorazepam 2 Mg/Ml Inj) 1 mg IV NOW ONE Stop: 10/24/23 11:18 Last Admin: 10/24/23 11:22 Dose: 1 mg Documented By: MPO Ondansetron HCl (Ondansetron 4 Mg/2 Ml Inj) 4 mg IV NOW ONE Stop: 10/24/23 10:41 Last Admin: 10/24/23 11:18 Dose: 4 mg Documented By: MPO Vital Signs Vital signs: Vital Signs - 8 hr 10/24/23 12:16 Pulse Rate 96 H Respiratory Rate 18 Blood Pressure 142/94 H Pulse Oximetry 96 Oxygen Delivery Method Room Air MDM - Nausea/Vomiting/Diarrhea Lab Data 10/24/23 11:28 10/24/23 11:00 Labs: Lab Results 10/24/23 10/24/23 Range/Units 11:00 11:28 WBC 9.0 (4.5-11.0) X10^3/uL RBC 4.93 (4.0-5.2) X10^6/uL Hgb 14.1 (12.0-16.0) g/dL Hct 42.9 (36-46) % MCV 87.0 (80-100) fL MCH 28.6 (26-34) PG MCHC 32.9 (30-36) % RDW 13.9 (11.6-14.8) % Plt Count 164 (150-400) X10^3/uL Neut % (Auto) 77.6 H (50-75) % Lymph % (Auto) 17.0 L (25-40) % [place] % (Auto) 4.3 (3-14) % Eos % (Auto) 0.5 L (2-4) % Baso % (Auto) 0.6 (0-2) % Neut # (Auto) 7000 (7422-3727) /uL Lymph # (Auto) 1500 (5380-3937) /uL [place] # (Auto) 400 (0-900) /uL Eos # (Auto) 0 (0-450) /uL Baso # (Auto) 100 (0-100) /uL Sodium 136 L (137-145) mmol/L Potassium 4.2 (3.4-5.1) mmol/L Chloride 107 (98-107) mmol/L Carbon Dioxide 22 (22-32) mmol/L BUN 14 (7-17) mg/dL Creatinine 0.58 (0.52-1.04) mg/dL Estimated GFR > 60 (>60) mL/min BUN/Creatinine Ratio 24.1 H (6-22) Glucose 109 H (70-100) mg/dL Calcium 9.0 (8.4-10.2) mg/dL Total Bilirubin 0.9 (0.2-1.3) mg/dL AST 61 H (14-36) IU/L ALT 46 H (<35) IU/L Alkaline Phosphatase 137 H (38-126) U/L Total Protein 8.0 (6.3-8.2) g/dL Albumin 4.0 (3.5-5.0) g/dL Globulin 4.0 (1.7-4.1) g/dL Albumin/Globulin Ratio 1.0 (1.0-2.8) Lipase 97 (23-300) U/L MDM Narrative Medical decision making narrative: 33-year-old female with opiate and methamphetamine withdrawal. Patient's heart rate and vital signs are overall appropriate. She has had nausea vomiting with generalized body aches, sweats and diarrhea. Discussed with patient we are not set up to initiate Suboxone therapy as we do not have process to get them shortly with an outside facility. They do note that they had called [facility] which had outpatient appointments today. Patient has called multiple detox facilities no bed availability currently. Discussed with patient we will give some medication for symptom relief. Labs. Her friend is going to reach out to [facility] to see if they can an appointment today to initiate treatment. [facility] does not have any appointments still tomorrow. The [facility] does have outpatient walk-in appointments until 4:00 p.m. today. They would like to be discharged so that they can go to this. Discussed if they want to wait to talk to health social work professor go ahead and be discharged so they can try to get a walk-in appointment. They would prefer to be discharged which I think is appropriate. Patient has a mild elevation in AST ALT and alk-phos but normal bilirubin and lipase. Renal function, other electrolytes and CBC are overall appropriate. Patient had some mild improvement of symptoms here in the department and is no longer actively vomiting. Discharge Plan Departure Patient Disposition: Home Clinical Impression: Acute drug withdrawal syndrome Activity Restrictions/Additional Instructions: Please go to the [facility] and I hope they can be helpful in assisting your treatment and recovery. Included a copy of your labs if this is helpful for them. A prescription for Zofran was sent to [facility] in [place]. Please return if you are having other new or concerning changes. Prescriptions: New ondansetron 4 mg tablet,disintegrating 4 mg PO Q6H PRN (Reason: nausea and vomiting) Qty: 10 0RF No Action furosemide [Lasix] 40 mg tablet 40 mg PO DAILY Qty: 7 0RF Referrals: Juliana Yeager MD [Primary Care Provider] - Stand Alone Forms: Patient Portal/API
[2023-10-24] MEDS: SODIUM CHLORIDE 0.9% 1,000 ML 1000 ML IV (11:17)
[2023-10-24] MEDS: ONDANSETRON 4 MG/2 ML INJ IV (11:18)
[2023-10-24 11:21] LABS: Alanine Aminotransferase 46 IU/L (<35); Alkaline Phosphatase 137 U/L (38-126); Aspartate Aminotransferase 61 IU/L (14-36); BUN Creatinine Ratio 24.1 (6-22); Bilirubin Total 0.9 mg/dL (0.2-1.3); Blood Urea Nitrogen 14 mg/dL (7-17); Carbon Dioxide 22 mmol/L (22-32); Chloride 107 mmol/L (98-107); Estimated Glomerular Filt Rate > 60 mL/min (>60); Glucose 109 mg/dL (70-100); HEMOLYSIS 35 (0-50); Lipase 97 U/L (23-300); Potassium 4.2 mmol/L (3.4-5.1); Sodium 136 mmol/L (137-145)
[2023-10-24] MEDS: LORazepam 2 MG/ML INJ 1 MG IV (11:22)
[2023-10-24 11:41] LABS: Add Manual Diff / Slide Review NO; Basophils Absolute Auto 100 /uL (0-100); Basophils Percent Auto 0.6 % (0-2); Eosinophils Absolute Auto 0 /uL (0-450); Eosinophils Percent Auto 0.5 % (2-4); Hematocrit 42.9 % (36-46); Hemoglobin 14.1 g/dL (12.0-16.0); Lymphocytes Absolute Auto 1500 /uL (1100-4500); Mean Corpuscular HGB Conc 32.9 % (30-36); Mean Corpuscular Hemoglobin 28.6 PG (26-34); Monocytes Absolute Auto 400 /uL (0-900); Monocytes Percent Auto 4.3 % (3-14); Neutrophils Absolute Auto 7000 /uL (1500-7000); Neutrophils Percent Auto 77.6 % (50-75); Platelet Count 164 X10^3/uL (150-400); Red Blood Cell Count 4.93 X10^6/uL (4.0-5.2); Red Cell Distribution Width 13.9 % (11.6-14.8)
[2023-10-24 12:16] VITALS: BP 142/94; PULSE 96; RESP 18; O2SAT 96
--- NOTE | 2023-10-24 12:57 | CM.SWNOTE ---
ED ICE MAKER Note ICE MAKER receives consult and plans to meet with patient regarding opiate withdrawals. Patient chooses to discharge to home prior to being seen by ICE MAKER with plan to go to [facility] to set up outpatient JESICA services. Gricelda Jim, PHARMACOVIGILANCE SCIENTIST
== END 2023-10-24 12:22 | disposition home or self-care (01) ==
PROVIDERS: Emergency Provider Emergency Medicine; PCP Family Medicine
DX: F19.939 Other psychoactive substance use, unspecified with withdrawal, unspecified (principal); F15.10 Other stimulant abuse, uncomplicated
CPT/HCPCS: 36415; 80053; 83690; 85025; 96374; 96375; 99284; J2060; J2405

== ENCOUNTER → 2023-11-01 14:32 | Outpatient (CLI) | payer OTHER, MEDICAID, SELFPAY | LOC: RESP 14:34 | PROVIDERS: PCP Family Medicine; Referring Provider Internal Medicine Critical Care Medicine; Visit Provider Internal Medicine Critical Care Medicine | DX: I27.20 Pulmonary hypertension, unspecified (principal); F17.210 Nicotine dependence, cigarettes, uncomplicated | CPT/HCPCS: 94060; 94726; 94729 ==

== ENCOUNTER 2023-11-10 16:51 | Emergency (ER) | payer OTHER, MEDICAID, SELFPAY ==
[2023-11-10] VITALS (14 sets, daily range): BP systolic 112–122; BP diastolic 71–87; PULSE 82–100; RESP 18–31; TEMP 36.7–36.8; O2SAT 92–97
--- NOTE | 2023-11-10 17:29 | DI.RAD.S_ITS ---
PROCEDURE: XR CHEST 1V INDICATIONS: suspected sepsis TECHNIQUE: One view of the chest was acquired. COMPARISON: [facility], CR, XR CHEST 2V, 10/20/2023, 15:02. [facility], CR, XR CHEST 2V, 02/05/2022, 22:50. FINDINGS: Surgical changes and devices: None. Lungs and pleura: Lungs are clear. No pleural effusions or pneumothorax. Mediastinum: Mediastinal contours appear normal. Heart size is normal. Bones and chest wall: No suspicious bony lesions. Overlying soft tissues appear unremarkable. IMPRESSION: No acute cardiopulmonary abnormality is seen. Dictated by: Slim Pacheco M.D. on 11/10/2023 at 18:07 Approved by: Slim Pacheco M.D. on 11/10/2023 at 18:08
--- NOTE | 2023-11-10 18:25 | ED.GENADULT ---
HPI - General Adult General Chief complaint: Extremity Problem,Nontraumatic Stated complaint: pain inside rt upper thigh Time Seen by Provider: 11/10/23 18:19 Source: patient Mode of arrival: Ambulatory History of Present Illness HPI narrative: 33-year-old woman with methamphetamine use and opioid use disorders, states she is gone off methamphetamine for the last 20 days is currently on Suboxone. Increase recent stressors with the of her mother yesterday presents complaining of right leg swelling up to the groin. Also notes that she has not had a bowel movement in 20 days. She reports some nausea, abdominal pain, no actual vomiting, mild diaphoresis, chills and fevers and overall general malaise. Related Data Previous Rx's Medication Instructions Recorded furosemide 40 mg tablet (Lasix) 40 mg PO DAILY #7 tabs 12/05/22 ondansetron 4 mg disintegrating 4 mg PO Q6H PRN nausea and 10/24/23 tablet vomiting #10 tabs doxycycline hyclate 100 mg capsule 100 mg PO BID #20 caps 11/10/23 Allergies Allergy/AdvReac Type Severity Reaction Status Date / Time No Known Drug Allergies Allergy Verified 11/10/23 17:25 Review of Systems Review of Systems Narrative: Pertinent positive and negative findings as per HPI Patient History Medical History (Updated 11/10/23 @ 22:21 by Sheri Levy MD) Opioid use disorder Methamphetamine use disorder, severe, in early remission Skin rash Anxiety Social History Smoking Status: Current every day smoker Smoking Status: Current every day smoker tobacco type: cigarettes and vaping alcohol intake frequency: a few times a month Substance Use Type: marijuana, opiates, methamphetamine and other Exam Initial Vital Signs Initial Vital Signs: Vital Signs Temperature 98.1 F 11/10/23 17:17 Pulse Rate 100 H 11/10/23 17:17 Respiratory Rate 24 11/10/23 17:17 Blood Pressure 120/87 11/10/23 17:17 Pulse Oximetry 97 11/10/23 17:17 Oxygen Delivery Method Room Air 11/10/23 17:17 General: Chronically ill-appearing, able to participate in history and exam HEENT: Dry mucous membranes, normal sclera with reactive pupils, Respiratory: Lungs are clear to auscultation, no wheezing no rales no rhonchi. Full and symmetrical air movement Cardiac: Tachycardic Regular rate and rhythm no murmurs no bruits Abdomen: Soft, nontender, good bowel tones, no flank pain Skin: Multiple areas of self-induced ?picking? that are all healing nicely. Her right lower extremity has erythema in patches over the distal portion of her calf and extending up toward her inner thigh. These are not dramatically demarcated, there is no area of skin breakdown and no obvious fluctuance or abscess under these. Neurologic: Grossly neurologically intact with no obvious asymmetries or abnormalities Extremities: Right lower extremity is swollen throughout tender throughout. She does have distal pulses appreciated Psych: Cooperative, appropriate insight and affect Course Orders Ordered: ED Orders 11/10/23 17:29 XR chest 1V Stat EKG-12 Lead Stat RT Consult Eval and Treat NOW 11/10/23 18:12 BNP [NT-proBNP (BNP-Adult 18+)] Stat Blood Culture Stat Complete Blood Count AUTO DIFF Stat Comprehensive Metabolic Panel Stat Lactate (Lactic Acid) Stat Lipase Stat PTT Partial Thromboplastin Manuel Stat Procalcitonin Stat Prothrombin Time INR Stat Troponin & CK Cardiac Panel Stat 11/10/23 19:27 CT abdomen pelvis w con Stat US arterial duplex LE RT Stat US periph venous low extrem rt Stat 11/10/23 20:14 Urine Microscopic Stat Ondansetron HCl (Ondansetron 4 Mg/2 Ml Inj) 4 mg IV NOW PRN PRN Reason: Nausea And Vomiting Ondansetron HCl (Ondansetron 4 Mg Odt) 4 mg SL NOW PRN PRN Reason: Nausea And Vomiting Discontinued Medications Buprenorphine/Naloxone (Buprenorphine/Naloxone 8mg/2mg 1 Tab) 3 tab SL NOW ONE Stop: 11/10/23 19:14 Last Admin: 11/10/23 19:49 Dose: 3 tab Documented By: ABIGAIL Vital Signs Vital signs: Vital Signs - 8 hr 11/10/23 17:17 11/10/23 18:10 11/10/23 18:13 Temperature 98.1 F Pulse Rate 100 H 89 88 Respiratory Rate 24 23 Blood Pressure 120/87 Pulse Oximetry 97 94 94 Oxygen Delivery Method Room Air Room Air 11/10/23 18:13 11/10/23 18:30 11/10/23 19:00 Temperature Pulse Rate 85 87 Respiratory Rate 18 25 H Blood Pressure 114/77 Pulse Oximetry 95 94 Oxygen Delivery Method 11/10/23 19:30 11/10/23 20:00 11/10/23 20:24 Temperature Pulse Rate 90 89 Respiratory Rate 31 H 20 Blood Pressure 120/74 Pulse Oximetry 97 92 Oxygen Delivery Method 11/10/23 20:24 11/10/23 20:30 11/10/23 20:30 Temperature Pulse Rate 84 82 Respiratory Rate 20 22 Blood Pressure 122/82 Pulse Oximetry 96 94 Oxygen Delivery Method 11/10/23 21:00 11/10/23 21:00 11/10/23 21:30 Temperature Pulse Rate 82 Respiratory Rate 22 Blood Pressure 113/74 112/77 Pulse Oximetry 93 Oxygen Delivery Method 11/10/23 21:30 Temperature 98.3 F Pulse Rate 85 Respiratory Rate 23 Blood Pressure Pulse Oximetry 97 Oxygen Delivery Method Room Air Medical Decision Making Medical Records Medical records narrative: Chemistries show normal renal function, slightly low sodium at 131. Her liver studies are normalizing ProBNP is elevated at 5130 Procalcitonin is elevated at 0.79 Urine does not suggest urinary tract infection Lab Data 11/10/23 18:12 11/10/23 18:12 Labs: Lab Results 11/10/23 11/10/23 Range/Units 18:12 20:14 WBC 15.0 H (4.5-11.0) X10^3/uL RBC 4.93 (4.0-5.2) X10^6/uL Hgb 13.7 (12.0-16.0) g/dL Hct 41.3 (36-46) % MCV 83.8 (80-100) fL MCH 27.8 (26-34) PG MCHC 33.1 (30-36) % RDW 14.1 (11.6-14.8) % Plt Count 164 (150-400) X10^3/uL Neut % (Auto) 80.8 H (50-75) % Lymph % (Auto) 13.1 L (25-40) % [place] % (Auto) 5.6 (3-14) % Eos % (Auto) 0.1 L (2-4) % Baso % (Auto) 0.4 (0-2) % Neut # (Auto) 70168 H (4620-8898) /uL Lymph # (Auto) 2000 (2071-6649) /uL [place] # (Auto) 800 (0-900) /uL Eos # (Auto) 0 (0-450) /uL Baso # (Auto) 100 (0-100) /uL PT 16.7 H (9.4-12.5) SECONDS INR 1.5 H (0.9-1.3) APTT 39 H (25.1-36.5) SECONDS Sodium 131 L (137-145) mmol/L Potassium 3.8 (3.4-5.1) mmol/L Chloride 100 (98-107) mmol/L Carbon Dioxide 22 (22-32) mmol/L BUN 15 (7-17) mg/dL Creatinine 0.69 (0.52-1.04) mg/dL Estimated GFR > 60 (>60) mL/min BUN/Creatinine Ratio 21.7 (6-22) Glucose 119 H (70-100) mg/dL Lactate 1.1 (0.7-2.1) mmol/L Calcium 8.6 (8.4-10.2) mg/dL Total Bilirubin 1.2 (0.2-1.3) mg/dL AST 32 (14-36) IU/L ALT 27 (<35) IU/L Alkaline Phosphatase 117 (38-126) U/L Total Creatine Kinase 57 (30-135) U/L Troponin I < 0.012 (0.01-0.034) ng/mL NT-Pro-B Natriuret Pep 5130 H (<125) pg/mL Total Protein 7.2 (6.3-8.2) g/dL Albumin 3.6 (3.5-5.0) g/dL Globulin 3.6 (1.7-4.1) g/dL Albumin/Globulin Ratio 1.0 (1.0-2.8) Lipase 48 (23-300) U/L Procalcitonin 0.79 H (<0.5) ng/mL Urine RBC None seen (0-5/HPF) Urine WBC 1-5/hpf (0-5/HPF) Ur Squamous Epith Cells >30 /hpf H D (0-5/HPF) Urine Bacteria Occasional (0-1) (None) Urine Mucus 2+ H (Negative) Ur Culture Indicated? Cult not indicated Vol Urine Centrifuged 10ml (spun) Point of Care Testing Test Results Negative Urine Dip Bedside Urine Glucose Negative Bedside Urine Bilirubin - Negative Bedside Urine Ketone - Negative Urine Specific [place] 1.02 Bedside Urine Occult Blood - Negative Bedside Urine pH 5.5 Bedside Urine Protein +/- 15 Bedside Urine Urobilinogen - Negative Bedside Urine Nitrite - Negative Bedside Urine Leukocytes - Negative Esterase Point of care testing: Point of Care Testing Test Results Negative Urine Dip Bedside Urine Glucose Negative Bedside Urine Bilirubin - Negative Bedside Urine Ketone - Negative Urine Specific [place] 1.02 Bedside Urine Occult Blood - Negative Bedside Urine pH 5.5 Bedside Urine Protein +/- 15 Bedside Urine Urobilinogen - Negative Bedside Urine Nitrite - Negative Bedside Urine Leukocytes - Negative Esterase MDM Narrative Medical decision making narrative: CC: Right lower extremity swelling, redness, pain Complicating co-morbidities: Off methamphetamine for 20 days, participating in outpatient drug treatment currently on Suboxone, of her parent yesterday Data collected from: patient Social determinants of health that may influence the patients condition: In early recovery for polysubstance use Medical records reviewed: Prior urgent care and emergency room notes are reviewed Differential considered: Cellulitis, abscess or abnormality restricting lymphatic outflow of the leg, arterial deficiency to the lower extremity, DVT Exam documented above, pertinent findings include: Right lower extremity is significantly swollen with blotchy patches of erythematous plaques worse the posterior portion of the calf but extending into the upper leg. She is tender in the groin. Tender in the right lower quadrant. Lab Test results independently reviewed as above. Pertinent findings: CBC shows mild leukocytosis at 15,000 with 80% neutrophils, no significant anemia Chemistries show normal renal function, slightly low sodium at 131. Her liver studies are normalizing ProBNP is elevated at 5130 Procalcitonin is elevated at 0.79 Urine does not suggest urinary tract infection Independently reviewed EKG: Sinus rhythm at a rate of 88. QTC is prolonged at 532 milliseconds. She has a right bundle branch block, no acute ischemic changes Imaging studies independently reviewed: Chest x-ray shows no significant abnormalities CT scan of the abdomen and pelvis done with concerns for lymphatic outflow obstruction shows reactive right-sided inguinal lymph nodes consistent with her presumed lower extremity cellulitis. Radiology notes some abnormalities in lower lobes bilaterally likely atelectasis but infection/inflammation can not be completely ruled out. On independent review she does have quite a bit of stool and gas consistent with her lack of bowel movement for 20 days Arterial ultrasound of the lower extremity does not show any stenosis or occlusion DVT ultrasound does not show acute findings Treatments: Fluids, Suboxone, Zofran and 2 g of IV ceftriaxone Re-evaluations: Findings reviewed with the patient. We discussed constipation issues. She has had success with magnesium citrate in the past and notes that MiraLax did not work. We talked about using enough MiraLax to get the wanted effects. Discussion: 33-year-old woman in early recovery from methamphetamine and opioid use disorder. She has developing a right lower extremity cellulitis has been given ceftriaxone and will be discharged home with 10 days of doxycycline. There is no evidence of sepsis, arterial abnormalities and no venous obstruction to explain the asymmetric edema. She does have Lasix available but has not been consistently taking it I suggested that she take it at least during the 10 days she is on the antibiotics to encourage decreased swelling so that the cellulitis can more thoroughly improve. Regarding her constipation who will ask her to use a bottle of magnesium citrate and then continue with MiraLax to prevent further constipation. She will keep her appointment with the outpatient rehab clinic for tomorrow's dose of Suboxone. At this time there is no evidence of sepsis or alternative diagnosis that would require hospitalization, additional imaging or further workup at this time. Questions are answered and she will be safe for discharge Discharge Plan Departure Patient Disposition: Home Clinical Impression: Cellulitis of right lower extremity, Leg edema, right, Therapeutic opioid induced constipation Instructions: DI for Cellulitis -- Adult, DI for Constipation Activity Restrictions/Additional Instructions: Thank you for coming in today You do have an infection in your right leg however there is no blood clot and there does not appear to be any abnormalities to the arteries going down your leg. With the swelling that is just on the right side I was somewhat concerned that there could be a mass or blockage in your pelvis that was preventing lymph from flowing out of your leg. We did a CT scan today that did not show any significant abnormalities. It did show that you do have 20 days of poop and gas inside that does need to come out. For the cellulitis, please complete 10 days of doxycycline. During these 10 days I would strongly recommend that you also take the prescribed Lasix to see if we can reduce some of the swelling in that leg For the constipation, I would recommend getting a bottle of magnesium citrate and drinking the entire bottle to see if you can get your bowels to begin to move. After that using MiraLax, however much as needed daily, to have a soft bowel movement daily. Because Suboxone is a partial opioid it will continue to cause constipation. This can become a significant problem so make sure that you are using stool softeners as well as adding extra water and fiber into your diet The antibiotic prescription was electronically transmitted to [facility] in [place]. You can also find MiraLax and magnesium citrate there to help with the constipation Congratulations on your 20 days of sobriety If you find that you are getting worse or develop any new symptoms, please feel free to return to the emergency department for further evaluation. Prescriptions: New doxycycline hyclate 100 mg capsule 100 mg PO BID Qty: 20 0RF No Action furosemide [Lasix] 40 mg tablet 40 mg PO DAILY Qty: 7 0RF ondansetron 4 mg tablet,disintegrating 4 mg PO Q6H PRN (Reason: nausea and vomiting) Qty: 10 0RF Referrals: Juliana Yeager MD [Primary Care Provider] - Stand Alone Forms: Patient Portal/API
[2023-11-10 18:27] LABS: Add Manual Diff / Slide Review NO; Basophils Absolute Auto 100 /uL (0-100); Basophils Percent Auto 0.4 % (0-2); Eosinophils Absolute Auto 0 /uL (0-450); Eosinophils Percent Auto 0.1 % (2-4); Hematocrit 41.3 % (36-46); Hemoglobin 13.7 g/dL (12.0-16.0); Lymphocytes Absolute Auto 2000 /uL (1100-4500); Lymphocytes Percent Auto 13.1 % (25-40); Mean Corpuscular HGB Conc 33.1 % (30-36); Mean Corpuscular Hemoglobin 27.8 PG (26-34); Mean Corpuscular Volume 83.8 fL (80-100); Monocytes Absolute Auto 800 /uL (0-900); Monocytes Percent Auto 5.6 % (3-14); Neutrophils Absolute Auto 12100 /uL (1500-7000); Neutrophils Percent Auto 80.8 % (50-75); Platelet Count 164 X10^3/uL (150-400); Red Blood Cell Count 4.93 X10^6/uL (4.0-5.2); Red Cell Distribution Width 14.1 % (11.6-14.8)
[2023-11-10 18:35] LABS: INR 1.5 (0.9-1.3); Prothrombin Time 16.7 SECONDS (9.4-12.5)
[2023-11-10 18:38] LABS: PTT Partial Thromboplastin Tim 39 SECONDS (25.1-36.5)
[2023-11-10 18:40] LABS: Lactate (Lactic Acid) 1.1 mmol/L (0.7-2.1)
--- NOTE | 2023-11-10 18:40 | PC.NURSE ---
right lower extremity is swollen. open wounds. recently off meth and fentanyl 20 days ago. unknown injury
[2023-11-10 18:41] LABS: Alanine Aminotransferase 27 IU/L (<35); Albumin 3.6 g/dL (3.5-5.0); Alkaline Phosphatase 117 U/L (38-126); Aspartate Aminotransferase 32 IU/L (14-36); BUN Creatinine Ratio 21.7 (6-22); Bilirubin Total 1.2 mg/dL (0.2-1.3); Blood Urea Nitrogen 15 mg/dL (7-17); Calcium 8.6 mg/dL (8.4-10.2); Carbon Dioxide 22 mmol/L (22-32); Chloride 100 mmol/L (98-107); Creatine Kinase 57 U/L (30-135); Estimated Glomerular Filt Rate > 60 mL/min (>60); Globulin 3.6 g/dL (1.7-4.1); Glucose 119 mg/dL (70-100); HEMOLYSIS < 15 (0-50); Lipase 48 U/L (23-300); Potassium 3.8 mmol/L (3.4-5.1); Sodium 131 mmol/L (137-145); Total Protein 7.2 g/dL (6.3-8.2)
[2023-11-10 18:53] LABS: NT-proBNP (BNP-Adult 18+) 5130 pg/mL (<125); Troponin I < 0.012 ng/mL (0.01-0.034)
[2023-11-10 18:57] LABS: Procalcitonin 0.79 ng/mL (<0.5)
--- NOTE | 2023-11-10 19:27 | DI.CT.S_ITS ---
PROCEDURE: CT ABDOMEN PELVIS W CON INDICATIONS: concern for abd mass TECHNIQUE: After the administration of intravenous contrast, axial sections acquired from the lung bases to the pubic symphysis. Coronal and sagittal reformats were performed. For radiation dose reduction, the following was used: automated exposure control, adjustment of mA and/or kV according to patient size. COMPARISON: CT angio chest abdomen pelvis 12/05/2022. FINDINGS: Image quality: Diagnostic. Lower Chest: Left lower lobe band like consolidation with associated volume loss is favored to represent atelectasis. However, some additional surrounding area of ground-glass opacity and tree-in-bud nodularity may represent infection/inflammation. ABDOMEN: Liver: No solid mass. Gallbladder: No radiopaque gallstones or wall thickening. Biliary ducts: No biliary dilation. Pancreas: No ductal dilation. Spleen: Size is within normal limits. Adrenal Glands: No adrenal nodules. Kidneys and Ureters: No hydronephrosis. No solid mass. No complex renal cystic lesion which requires follow up. Stomach and Bowel: Normal colonic caliber, without significant wall thickening. Normal appendix. Peritoneum: No abnormal intraperitoneal fluid. No free air. Ventral Wall: Small fat containing umbilical hernia.. Abdominal Nodes: No retroperitoneal or mesenteric adenopathy by size criteria. Vessels: Aorta and inferior vena cava are normal in size. PELVIS: Pelvic Organs: Intrauterine device is in place.. Bladder: Bladder is decompressed limiting evaluation.. Pelvic Nodes: Asymmetrically enlarged right superficial inguinal nodes measuring up to 17 millimeters in short axis. Miscellaneous: No inguinal hernias are seen. Intramuscular punctate metallic density in the anterior left upper thigh (3/110), recommend correlation with clinical history. Bones: No acute or suspicious osseous abnormality. IMPRESSION: No abdominal mass identified as clinically queried. Right asymmetrically enlarged superficial inguinal lymph nodes, possibly reactive. Correlate with clinical history. Left lower lobe bandlike opacity with associated volume loss is favored to represent atelectasis. However, some additional surrounding area of ground-glass opacity and tree-in-bud nodularity may represent superimposed infection/inflammation. Dictated by: Summer Clayton M.D. on 11/10/2023 at 21:24 Approved by: Summer Clayton M.D. on 11/10/2023 at 21:43
--- NOTE | 2023-11-10 19:27 | DI.US.S_ITS ---
PROCEDURE: US ARTERIAL DUPLEX LE RT INDICATIONS: PAIN TECHNIQUE: Color and pulse Doppler interrogation was performed of the right lower extremity arterial system, with image documentation. COMPARISON: [facility], , [facility] VENOUS LOW EXTREM RT, 11/10/2023, 19:52. FINDINGS: Common femoral artery: 106 cm/sec, with triphasic flow. Deep femoral artery: 33 cm/sec, with triphasic flow. Proximal superficial femoral artery: 88 cm/sec, with triphasic flow. Mid superficial femoral artery: 90 cm/sec, with triphasic flow. Distal superficial femoral artery: 90 cm/sec, with triphasic flow. Popliteal artery: 71 cm/sec, with triphasic flow. Posterior tibial artery: 29 cm/sec, with biphasic flow. Anterior tibial artery/dorsalis pedis: 22 cm/sec, with biphasic flow. Shine-scale imaging description: No significant abnormality seen. IMPRESSION: No arterial stenosis or occlusion in the right lower extremity. Dictated by: Slim Pacheco M.D. on 11/10/2023 at 20:29 Approved by: Slim Pacheco M.D. on 11/10/2023 at 20:33
--- NOTE | 2023-11-10 19:27 | DI.US.S_ITS ---
PROCEDURE: US PERIPH VENOUS LOW EXTREM RT INDICATIONS: EDEMA TECHNIQUE: Real-time imaging, as well as color and pulse Doppler interrogation, were performed of the lower extremity deep veins from the inguinal ligament to the popliteal fossa, with documentation of the visualized calf veins. COMPARISON: None. FINDINGS: The common femoral, femoral, and popliteal veins are normally compressible, and free of intraluminal thrombus. The posterior tibial and peroneal veins are not well visualized secondary to edema. Color and pulse Doppler demonstrate normal phasic intraluminal flow. There is normal augmentation response to distal compression maneuver. IMPRESSION: No findings of lower extremity deep venous thrombosis. Calf veins are not well visualized. Approved by: Summer Clayton M.D. on 11/10/2023 at 20:18
[2023-11-10] MEDS: BUPRENORPHINE/NALOXONE 8MG/2MG 1 TAB 3 TAB SL (19:49)
[2023-11-10 20:39] LABS: RBC Urine None Seen (0-5/HPF); Urine Volume 10mL (spun); WBC Urine 1-5/HPF (0-5/HPF)
[2023-11-10 20:40] LABS: Bacteria Urine Occasional (0-1); Culture Indicated Urine Cult Not Indicated; Mucus Urine 2+ (Negative); Squamous Epithelial Cell Urine >30 /HPF (0-5/HPF)
[2023-11-10] MEDS: cefTRIAXone 2,000 MG in SODIUM CHLORIDE 0.9% 100 ML 200 MG IV (22:27)
[2023-11-10] MEDS: IBUPROFEN 400 MG TABLET PO (23:15)
[2023-11-10] MEDS: ACETAMINOPHEN 325 MG TABLET PO (23:15)
== END 2023-11-10 23:15 | disposition home or self-care (01) ==
PROVIDERS: Emergency Medicine; Emergency Provider Emergency Medicine; PCP Family Medicine
DX: L03.115 Cellulitis of right lower limb (principal); R60.0 Localized edema; K59.03 Drug induced constipation; R10.9 Unspecified abdominal pain; R11.0 Nausea; Z79.01 Long term (current) use of anticoagulants
CPT/HCPCS: 36415; 71045; 74177; 80053; 81003; 81015; 81025; 82550; 83605; 83690; 83880; 84145; 84484; 85025; 85610; 85730; 87040; 93005; 93010; 93926; 93971; 96365; 99284; 99285; J0696

== ENCOUNTER 2024-01-23 20:53 | Inpatient (IN) | payer OTHER, MEDICAID, SELFPAY ==
[2024-01-23] VITALS (19 sets, daily range): BP systolic 144–181; BP diastolic 86–118; PULSE 125–198; RESP 22–38; TEMP 36.7–38.5; O2SAT 84–98
--- NOTE | 2024-01-23 22:17 | DI.RAD.S_ITS ---
PROCEDURE: XR CHEST 1V INDICATIONS: eval for PNA TECHNIQUE: One view of the chest was acquired. COMPARISON: [facility], CR, XR CHEST 1V, 11/10/2023, 17:37. FINDINGS: Surgical changes and devices: None. Lungs and pleura: Lungs are clear. No pleural effusions or pneumothorax. Mediastinum: Mediastinal contours appear normal. Heart size is enlarged. Bones and chest wall: No suspicious bony lesions. Overlying soft tissues appear unremarkable. IMPRESSION: No acute pulmonary process. Dictated by: Sanna Espinoza M.D. on 01/23/2024 at 23:25 Approved by: Sanna Espinoza M.D. on 01/23/2024 at 23:33
[2024-01-23 22:25] LABS: Influenza A - CEPHEID Flu A NEGATIVE (NEGATIVE); Influenza B - CEPHEID Flu B NEGATIVE (NEGATIVE); Respiratory Syncytial Virus Negative (Negative)
[2024-01-23 22:31] LABS: COVID-19 CEPHEID 4-PLEX PCR Negative (Negative)
[2024-01-23 22:31] LABS: Urine Volume 10mL (spun)
--- NOTE | 2024-01-23 22:31 | ED.GENADULT ---
HPI - General Adult General Chief complaint: Shortness of Breath/Dyspnea Stated complaint: thinks she has cellulitis Time Seen by Provider: 01/23/24 22:01 Source: patient Mode of arrival: Wheelchair History of Present Illness HPI narrative: Patient is a 33-year-old female. Has a history of methamphetamine and also fentanyl abuse. Used before these drugs just prior to arrival here in the ER. She also has history of pulmonary hypertension with what sounds like occasional use of her medications. She does see a drop forge hand. Is here for evaluation of an infection to her left lower extremity. States has been progressively worsened over the past couple days. She denies chest pain. Does have some shortness of breath but states this is because of the anxiety that she is having. Denies headaches. No fevers. She is mottled skin what she states is baseline for her. Denies any trauma. States she does not inject any drugs just smokes the illicit substances Related Data Home Medications Medication Instructions Recorded Confirmed albuterol sulfate 90 mcg/actuation 2 puff inhalation Q4-6H PRN 11/17/23 11/17/23 aerosol inhaler buprenorphine 8 mg-naloxone 2 mg 2 film buccal Q24H 11/17/23 11/17/23 sublingual film (Suboxone) Previous Rx's Medication Instructions Recorded furosemide 40 mg tablet (Lasix) 40 mg PO DAILY #7 tabs 12/05/22 ondansetron 4 mg disintegrating 4 mg PO Q6H PRN nausea and 10/24/23 tablet vomiting #10 tabs doxycycline hyclate 100 mg capsule 100 mg PO BID #20 caps 11/10/23 Allergies Allergy/AdvReac Type Severity Reaction Status Date / Time No Known Drug Allergies Allergy Verified 11/10/23 17:25 Review of Systems Review of Systems ROS Unobtainable: All systems reviewed & are unremarkable except as noted in HPI and below Patient History Medical History Opioid use disorder Methamphetamine use disorder, severe, in early remission Skin rash Anxiety Social History Smoking Status: Current every day smoker Smoking Status: Current every day smoker tobacco type: cigarettes and vaping alcohol intake frequency: holidays/special occasions only Substance Use Type: marijuana, opiates, methamphetamine and other Exam Initial Vital Signs Initial Vital Signs: Vital Signs Temperature 98.1 F 01/23/24 21:18 Pulse Rate 129 H 01/23/24 21:18 Respiratory Rate 22 01/23/24 21:18 Blood Pressure 161/118 H 01/23/24 21:18 Pulse Oximetry 95 01/23/24 21:18 Oxygen Delivery Method Room Air 01/23/24 21:18 Const General: ill appearing [facility] Head: normal to inspection and normocephalic Resp Effort & Inspection: no cough, not labored and tachypneic Auscultation: clear to auscultation bilaterally Cardio Rate: tachycardic Rhythm: regular rhythm GI Inspection: normal to inspection and non-distended Skin Other: Patient has skin and some cyanosis around her mouth. She states this is baseline for her. She also has redness on the medial aspect of the left knee with swelling that extends up to her groin on the left. No pustules. No vesicles. Neuro General: patient alert, patient awake, patient oriented x3 and moves all extremities Extrem General: edema Course Orders Ordered: ED Orders 01/23/24 21:27 Consult to THROAT CUTTER - Surveyor Instrument Assistant Stat 01/23/24 21:30 Covid-19 + FLU A/B + RSV - PCR Stat 01/23/24 21:55 Urine Microscopic Stat 01/23/24 22:17 XR chest 1V Stat EKG-12 Lead Stat 01/23/24 22:33 US periph venous low extrem lt Stat Complete Blood Count AUTO DIFF Stat Lactate (Lactic Acid) Stat Test Serum,Qual Stat 01/23/24 22:58 Blood Culture Stat 01/23/24 23:55 BNP [NT-proBNP (BNP-Adult 18+)] Stat Comprehensive Metabolic Panel Stat Lipase Stat Procalcitonin Stat Troponin & CK Cardiac Panel Stat 01/24/24 00:53 Consult to Physician Stat 01/24/24 00:54 Consult to Physician Stat Sodium Chloride (Normal Saline 0.9%) 1,000 mls @ 100 mls/hr IV CONT MIAN Last Admin: 01/23/24 22:40 Dose: 100 mls/hr Documented By: JACKSON Ondansetron HCl (Ondansetron 4 Mg/2 Ml Inj) 4 mg IV Q4HR PRN PRN Reason: Nausea And Vomiting Sodium Chloride (Sodium Chloride 0.9% Flush) 10 ml IV BID MIAN Sodium Chloride (Sodium Chloride 0.9% Flush) 10 ml IV PRN PRN PRN Reason: Flush Last Admin: 01/24/24 00:41 Dose: 10 ml Documented By: VINCENZO Discontinued Medications Ceftriaxone Sodium 1,000 mg/ (Sodium Chloride) 100 mls @ 200 mls/hr IV NOW ONE Stop: 01/23/24 22:28 Last Infusion: 01/23/24 23:26 Dose: Infused Documented By: Admin: 01/23/24 22:57 Dose: 200 mls/hr Documented By: JACKSON Vancomycin HCl (Vancomycin) 1,000 mg in 200 mls @ 200 mls/hr IV NOW ONE Stop: 01/23/24 23:26 Last Infusion: 01/23/24 23:56 Dose: Infused Documented By: Admin: 01/23/24 22:53 Dose: 200 mls/hr Documented By: JACKSON Lorazepam (Lorazepam 2 Mg/Ml Inj) 1 mg IV NOW ONE Stop: 01/24/24 01:38 Last Admin: 01/24/24 01:45 Dose: 1 mg Documented By: JACKSON Ondansetron HCl (Ondansetron 4 Mg/2 Ml Inj) 4 mg IV NOW ONE Stop: 01/24/24 00:38 Last Admin: 01/24/24 00:41 Dose: 4 mg Documented By: VINCENZO Vital Signs Vital signs: Vital Signs - 8 hr 01/23/24 21:18 01/23/24 22:23 01/23/24 22:30 Temperature 98.1 F Pulse Rate 129 H 133 H Respiratory Rate 22 35 H 33 H Blood Pressure 161/118 H Pulse Oximetry 95 98 98 Oxygen Delivery Method Room Air Nasal Cannula Nasal Cannula Oxygen Flow Rate 4 4 01/23/24 22:36 01/23/24 22:37 01/23/24 22:37 Temperature Pulse Rate 129 H 128 H Respiratory Rate 36 H 25 H Blood Pressure 153/102 H Pulse Oximetry 95 98 Oxygen Delivery Method Nasal Cannula Nasal Cannula Oxygen Flow Rate 5 5 01/23/24 22:52 01/23/24 22:52 01/23/24 23:00 Temperature Pulse Rate 126 H 125 H Respiratory Rate 29 H 38 H Blood Pressure 179/86 H Pulse Oximetry 95 Oxygen Delivery Method Nasal Cannula Oxygen Flow Rate 5 01/23/24 23:00 01/23/24 23:00 01/23/24 23:10 Temperature Pulse Rate Respiratory Rate Blood Pressure 163/108 H 166/112 H Pulse Oximetry 92 Oxygen Delivery Method Non -Rebreather Oximask Oxygen Flow Rate 15 01/23/24 23:10 01/23/24 23:11 01/23/24 23:14 Temperature Pulse Rate 130 H Respiratory Rate 33 H Blood Pressure Pulse Oximetry 84 L 85 L 91 Oxygen Delivery Method Nasal Cannula Nasal Cannula Oximask Oxygen Flow Rate 5 7 10 01/23/24 23:20 01/23/24 23:21 01/23/24 23:21 Temperature Pulse Rate 143 H 145 H Respiratory Rate 34 H 29 H Blood Pressure 171/105 H Pulse Oximetry Oxygen Delivery Method Oxygen Flow Rate 01/23/24 23:22 01/23/24 23:29 01/23/24 23:30 Temperature Pulse Rate 167 H Respiratory Rate 29 H Blood Pressure 144/98 H Pulse Oximetry 91 95 Oxygen Delivery Method Non -Rebreather Oximask Oxygen Flow Rate 15 10 01/23/24 23:30 01/23/24 23:40 01/23/24 23:41 Temperature 101.3 F H Pulse Rate 130 H Respiratory Rate 38 H 23 Blood Pressure 181/111 H Pulse Oximetry 95 91 Oxygen Delivery Method Oximask Oximask Oxygen Flow Rate 10 10 01/23/24 23:41 01/23/24 23:49 01/23/24 23:49 Temperature Pulse Rate 198 H 126 H Respiratory Rate 25 H 32 H Blood Pressure 160/96 H Pulse Oximetry 93 94 Oxygen Delivery Method Oximask Oximask Oxygen Flow Rate 10 10 01/23/24 23:50 01/23/24 23:50 01/24/24 00:00 Temperature Pulse Rate 126 H 126 H Respiratory Rate 35 H 48 H Blood Pressure 170/91 H Pulse Oximetry 94 94 Oxygen Delivery Method Oximask Oximask Oxygen Flow Rate 10 10 01/24/24 00:01 01/24/24 00:01 01/24/24 00:10 Temperature Pulse Rate 124 H Respiratory Rate 33 H Blood Pressure 157/123 H 176/126 H Pulse Oximetry 94 Oxygen Delivery Method Oximask Oxygen Flow Rate 10 01/24/24 00:10 01/24/24 00:20 01/24/24 00:21 Temperature Pulse Rate 257 H 206 H Respiratory Rate 45 H 40 H Blood Pressure 153/113 H Pulse Oximetry 96 Oxygen Delivery Method Oximask Oxygen Flow Rate 10 01/24/24 00:21 01/24/24 00:30 01/24/24 00:30 Temperature Pulse Rate 212 H 146 H Respiratory Rate 41 H 36 H Blood Pressure 143/102 H Pulse Oximetry 92 93 Oxygen Delivery Method Oximask Oximask Oxygen Flow Rate 10 10 01/24/24 00:40 01/24/24 00:46 01/24/24 00:46 Temperature Pulse Rate 240 H 207 H Respiratory Rate 38 H 39 H Blood Pressure 154/89 H Pulse Oximetry 93 92 Oxygen Delivery Method Oximask Oximask Oxygen Flow Rate 10 10 01/24/24 00:50 01/24/24 00:50 Temperature Pulse Rate 133 H Respiratory Rate 42 H Blood Pressure 171/92 H Pulse Oximetry 91 Oxygen Delivery Method Oximask Oxygen Flow Rate 10 Medical Decision Making Medical Records Medical records reviewed: Yes I reviewed the patient's medical records. Lab Data Lab results reviewed: Yes I reviewed the patient's lab results. 01/23/24 22:33 01/23/24 23:55 Labs: Lab Results 01/23/24 01/23/24 01/23/24 Range/Units 21:30 21:55 22:33 WBC 12.0 H (4.5-11.0) X10^3/uL RBC 4.91 (4.0-5.2) X10^6/uL Hgb 13.6 (12.0-16.0) g/dL Hct 42.3 (36-46) % MCV 86.1 (80-100) fL MCH 27.6 (26-34) PG MCHC 32.1 (30-36) % RDW 16.6 H (11.6-14.8) % Plt Count 237 (150-400) X10^3/uL Neut % (Auto) 85.3 H (50-75) % Lymph % (Auto) 10.6 L (25-40) % O'Brien % (Auto) 3.1 (3-14) % Eos % (Auto) 0.6 L (2-4) % Baso % (Auto) 0.4 (0-2) % Neut # (Auto) 12470 H (1271-3977) /uL Lymph # (Auto) 1300 (8169-2698) /uL O'Brien # (Auto) 400 (0-900) /uL Eos # (Auto) 100 (0-450) /uL Baso # (Auto) 100 (0-100) /uL Sodium (137-145) mmol/L Potassium (3.4-5.1) mmol/L Chloride (98-107) mmol/L Carbon Dioxide (22-32) mmol/L BUN (7-17) mg/dL Creatinine (0.52-1.04) mg/dL Estimated GFR (>60) mL/min BUN/Creatinine Ratio (6-22) Glucose (70-100) mg/dL Lactate 2.5 H (0.7-2.1) mmol/L Calcium (8.4-10.2) mg/dL Total Bilirubin (0.2-1.3) mg/dL AST (14-36) IU/L ALT (<35) IU/L Alkaline Phosphatase (38-126) U/L Total Creatine Kinase (30-135) U/L Troponin I (0.01-0.034) ng/mL NT-Pro-B Natriuret Pep (<125) pg/mL Total Protein (6.3-8.2) g/dL Albumin (3.5-5.0) g/dL Globulin (1.7-4.1) g/dL Albumin/Globulin Ratio (1.0-2.8) Lipase (23-300) U/L Procalcitonin (<0.5) ng/mL Serum , Qual Negative (Negative) Urine RBC 0-1/hpf (0-5/HPF) Urine WBC 0-1/hpf (0-5/HPF) Ur Squamous Epith Cells 5-10 /hpf H (0-5/HPF) Urine Bacteria Moderate (10-30) H (None) Hyaline Casts 0-1/lpf (None) Urine Mucus 1+ H (Negative) Ur Culture Indicated? Cult not indicated Vol Urine Centrifuged 10ml (spun) SARS-CoV-2 (PCR) Negative (Negative) Influenza A (RT-PCR) Flu a negative (NEGATIVE) Influenza B (RT-PCR) Flu b negative (NEGATIVE) RSV (PCR) Negative (Negative) 01/23/24 Range/Units 23:55 WBC (4.5-11.0) X10^3/uL RBC (4.0-5.2) X10^6/uL Hgb (12.0-16.0) g/dL Hct (36-46) % MCV (80-100) fL MCH (26-34) PG MCHC (30-36) % RDW (11.6-14.8) % Plt Count (150-400) X10^3/uL Neut % (Auto) (50-75) % Lymph % (Auto) (25-40) % O'Brien % (Auto) (3-14) % Eos % (Auto) (2-4) % Baso % (Auto) (0-2) % Neut # (Auto) (9723-7203) /uL Lymph # (Auto) (3904-9167) /uL O'Brien # (Auto) (0-900) /uL Eos # (Auto) (0-450) /uL Baso # (Auto) (0-100) /uL Sodium 135 L (137-145) mmol/L Potassium 4.0 (3.4-5.1) mmol/L Chloride 106 (98-107) mmol/L Carbon Dioxide 23 (22-32) mmol/L BUN 17 (7-17) mg/dL Creatinine 0.73 (0.52-1.04) mg/dL Estimated GFR > 60 (>60) mL/min BUN/Creatinine Ratio 23.3 H (6-22) Glucose 83 (70-100) mg/dL Lactate (0.7-2.1) mmol/L Calcium 7.8 L (8.4-10.2) mg/dL Total Bilirubin 1.1 (0.2-1.3) mg/dL AST 64 H (14-36) IU/L ALT 57 H (<35) IU/L Alkaline Phosphatase 120 (38-126) U/L Total Creatine Kinase 194 H (30-135) U/L Troponin I 0.017 (0.01-0.034) ng/mL NT-Pro-B Natriuret Pep 2290 H (<125) pg/mL Total Protein 6.7 (6.3-8.2) g/dL Albumin 3.6 (3.5-5.0) g/dL Globulin 3.1 (1.7-4.1) g/dL Albumin/Globulin Ratio 1.2 (1.0-2.8) Lipase 59 (23-300) U/L Procalcitonin 0.11 (<0.5) ng/mL Serum , Qual (Negative) Urine RBC (0-5/HPF) Urine WBC (0-5/HPF) Ur Squamous Epith Cells (0-5/HPF) Urine Bacteria (None) Hyaline Casts (None) Urine Mucus (Negative) Ur Culture Indicated? Vol Urine Centrifuged SARS-CoV-2 (PCR) (Negative) Influenza A (RT-PCR) (NEGATIVE) Influenza B (RT-PCR) (NEGATIVE) RSV (PCR) (Negative) Point of Care Testing Test Results Negative Urine Dip Bedside Urine Glucose Negative Bedside Urine Bilirubin - Negative Bedside Urine Ketone - Negative Urine Specific [place] 1.030 Bedside Urine Occult Blood - Negative Bedside Urine pH 6.0 Bedside Urine Protein ++ 100 Bedside Urine Urobilinogen - Negative Bedside Urine Nitrite - Negative Bedside Urine Leukocytes - Negative Esterase Point of care testing: Point of Care Testing Test Results Negative Urine Dip Bedside Urine Glucose Negative Bedside Urine Bilirubin - Negative Bedside Urine Ketone - Negative Urine Specific [place] 1.030 Bedside Urine Occult Blood - Negative Bedside Urine pH 6.0 Bedside Urine Protein ++ 100 Bedside Urine Urobilinogen - Negative Bedside Urine Nitrite - Negative Bedside Urine Leukocytes - Negative Esterase Imaging Data Chest x-ray: Radiologist's Impression: PROCEDURE: XR CHEST 1V INDICATIONS: eval for PNA TECHNIQUE: One view of the chest was acquired. COMPARISON: [facility], , XR CHEST 1V, 11/10/2023, 17:37. FINDINGS: Surgical changes and devices: None. Lungs and pleura: Lungs are clear. No pleural effusions or pneumothorax. Mediastinum: Mediastinal contours appear normal. Heart size is enlarged. Bones and chest wall: No suspicious bony lesions. Overlying soft tissues appear unremarkable. IMPRESSION: No acute pulmonary process. US - DVT: Radiologist's Impression: PROCEDURE: US PERIPH VENOUS LOW EXTREM LT INDICATIONS: eval for DVT TECHNIQUE: Real-time imaging, as well as color and pulse Doppler interrogation, were performed of the lower extremity deep veins from the inguinal ligament to the popliteal fossa, with documentation of the visualized calf veins. COMPARISON: None. FINDINGS: The common femoral, femoral, popliteal, are normally compressible, and free of intraluminal thrombus. Calf veins are not well seen. Color and pulse Doppler demonstrate normal phasic intraluminal flow. There is normal augmentation response to distal compression maneuver. Edema is present within the subcutaneous tissues. IMPRESSION: No findings of lower extremity deep venous thrombosis. ECG Data Attestation: I personally reviewed and interpreted this ECG as follows: Interpretation: Sinus tachycardia Ventricular rate 125 Normal axis Normal QRS Normal QTC No ST T wave changes MDM Narrative Medical decision making narrative: Patient was in the waiting room for almost 1 hour prior to my initial evaluation. Showed she was brought back to the room labs were obtained. Cultures obtained. Fluids administered and antibiotics started. She did have a period of time where she became hypoxic to the mid 80s. She was put on a non-rebreather and we are able to wean her down to an OxyMask. Does have a cellulitis to her left leg. Given her history and physical this is consistent with a infection. Negative for DVT. Patient has very mottled skin what she states is normal for her given her pulmonary hypertension. Did discuss the case with Dr. Miller who was on-call for the patient's primary doctor and we will admit for further evaluation and treatment. Discussed the need for admission with the patient who expressed understanding and agreement as well. Critical Care Time Critical Care Time Critical Care Time: Yes Total Critical Care Time: 35 Attestation: The high probability of a clinically significant, sudden or life threatening deterioration of the [respiratory, cardiovascular] system(s) required my full and direct attention, intervention and personal management. The aggregate critical care time was [35] minutes. This time is in addition to time spent performing reported procedures but includes the following: [x] Data Review and interpretation [x] Patient assessment and monitoring of vital signs [x] Documentation x Medication orders and management Discharge Plan Departure Patient Disposition: Admitted As Inpatient Clinical Impression: Cellulitis, Pulmonary hypertension, Methamphetamine abuse Admit Date/Time: 01/24/24 00:54 Admit Provider: Juliana Yeager
[2024-01-23 22:32] LABS: Bacteria Urine Moderate (10-30); RBC Urine 0-1/HPF (0-5/HPF)
[2024-01-23 22:33] LABS: Hyaline Casts Urine 0-1/LPF; Mucus Urine 1+ (Negative)
[2024-01-23 22:34] LABS: WBC Urine 0-1/HPF (0-5/HPF)
[2024-01-23 22:35] LABS: Culture Indicated Urine Cult Not Indicated; Squamous Epithelial Cell Urine 5-10 /HPF (0-5/HPF)
[2024-01-23] MEDS: SODIUM CHLORIDE 0.9% 1,000 ML 100 ML IV (22:40)
--- NOTE | 2024-01-23 22:45 | PC.NURSE ---
Addendum entered by Cristina Alfonso R.N. 01/24/24 00:32: amend: this nurse arrived in patient's room at 2235. Two other RN's present Original Note: This nurse arrived in patient's room at 2335. @ other RN's present and placing PIV's Patient is alert and oriented, SOB, taking breaths in between 3-4 words and mottled from neck down to her toes. Patient on 5L [place] oxygen. Respiratory therapist at bedside. Patient has redness on left lower extremity medial under her knee. Red, and hot, painful to touch. Patient states she has noticed it for the last three days. patient reports she has pulmonary hypertension and overworked herself.
[2024-01-23 22:46] LABS: Add Manual Diff / Slide Review NO; Basophils Absolute Auto 100 /uL (0-100); Basophils Percent Auto 0.4 % (0-2); Eosinophils Absolute Auto 100 /uL (0-450); Eosinophils Percent Auto 0.6 % (2-4); Hematocrit 42.3 % (36-46); Hemoglobin 13.6 g/dL (12.0-16.0); Lymphocytes Absolute Auto 1300 /uL (1100-4500); Lymphocytes Percent Auto 10.6 % (25-40); Mean Corpuscular HGB Conc 32.1 % (30-36); Mean Corpuscular Hemoglobin 27.6 PG (26-34); Mean Corpuscular Volume 86.1 fL (80-100); Monocytes Absolute Auto 400 /uL (0-900); Monocytes Percent Auto 3.1 % (3-14); Neutrophils Absolute Auto 10200 /uL (1500-7000); Neutrophils Percent Auto 85.3 % (50-75); Platelet Count 237 X10^3/uL (150-400); Red Blood Cell Count 4.91 X10^6/uL (4.0-5.2); Red Cell Distribution Width 16.6 % (11.6-14.8)
[2024-01-23] MEDS: VANCOMYCIN 1,000 MG/200 ML PIGGYBACK 200 MG IV (22:53)
[2024-01-23 22:54] LABS: Lactate (Lactic Acid) 2.5 mmol/L (0.7-2.1)
[2024-01-23 22:56] LABS: Pregnancy Test Serum,Qual Negative (Negative)
[2024-01-23] MEDS: cefTRIAXone 1,000 MG in SODIUM CHLORIDE 0.9% 100 ML 200 MG IV (22:57)
--- NOTE | 2024-01-23 23:01 | PC.NURSE ---
left lower extremity capillary refill 6 seconds. right lower extremity capillary refill 4 seconds. Bilat upper extremity capillary refill 5 seconds. right pedal pulse present with doppler. left pedal pulse not present with doppler, wind turbine blade repair technician currently getting ultrasound on femoral pulse
--- NOTE | 2024-01-23 23:17 | PC.NURSE ---
Addendum entered by Cristina Alfonso R.N. 01/23/24 23:27: 23:22 patient on a non rebreather at 15L oxygen. [address] Dr[address]. Dr. Silveira at bedside 23:27 Original Note: 2312 called RT for an oxy mask. Patient desatting at at 85% on nasal cannula 7 L
[2024-01-24] VITALS (120 sets, daily range): BP systolic 100–176; BP diastolic 51–126; PULSE 105–257; RESP 21–72; TEMP 36.6–38.6; O2SAT 76–100; BMI 35.7
[2024-01-24 00:13] LABS: Alanine Aminotransferase 57 IU/L (<35); Albumin 3.6 g/dL (3.5-5.0); Albumin Globulin Ratio 1.2 (1.0-2.8); Alkaline Phosphatase 120 U/L (38-126); Aspartate Aminotransferase 64 IU/L (14-36); BUN Creatinine Ratio 23.3 (6-22); Bilirubin Total 1.1 mg/dL (0.2-1.3); Blood Urea Nitrogen 17 mg/dL (7-17); Calcium 7.8 mg/dL (8.4-10.2); Carbon Dioxide 23 mmol/L (22-32); Chloride 106 mmol/L (98-107); Estimated Glomerular Filt Rate > 60 mL/min (>60); Globulin 3.1 g/dL (1.7-4.1); Glucose 83 mg/dL (70-100); HEMOLYSIS 18 (0-50); Lipase 59 U/L (23-300); Sodium 135 mmol/L (137-145); Total Protein 6.7 g/dL (6.3-8.2)
[2024-01-24 00:15] LABS: Reflexed Lactate in 2 Hours Y
[2024-01-24 00:18] LABS: Creatine Kinase 194 U/L (30-135)
[2024-01-24 00:30] LABS: Procalcitonin 0.11 ng/mL (<0.5)
[2024-01-24 00:31] LABS: NT-proBNP (BNP-Adult 18+) 2290 pg/mL (<125); Troponin I 0.017 ng/mL (0.01-0.034)
[2024-01-24] MEDS: SODIUM CHLORIDE 0.9% FLUSH 10 ML IV ×2 (00:41→20:54)
[2024-01-24] MEDS: ONDANSETRON 4 MG/2 ML INJ IV (00:41)
[2024-01-24] MEDS: LORazepam 2 MG/ML INJ 1 MG IV (01:45)
[2024-01-24 02:58] LABS: Lactate 2HR (Lactic Acid Rflx) 1.1 mmol/L (0.7-2.1)
--- NOTE | 2024-01-24 04:46 | PC.NURSE ---
back charting 0302: Pt's o2 saturation dropped to 86% and continued to stay regardless repositioning. RT called. Placed on heated high flow 25L 100% fiO2.
--- NOTE | 2024-01-24 06:09 | PC.NURSE ---
Back chartin:[address] Miller to notify that patient is on high flow 25L 100% fio2.
[2024-01-24 13:06] LABS: MRSA (Nasal) PCR DETECTED (Not Detect)
--- NOTE | 2024-01-24 13:23 | PM.HP.1 ---
History of Present Illness History of Present Illness Date Patient Seen: 01/24/24 Time Patient Seen: 13:23 Chief complaint: thinks she has cellulitis Narrative: This 33-year-old female is well known to me. Patient has a long history of IV methamphetamine and fentanyl abuse. Patient presented to the emergency department on 01/23/2024 with complaints of possible cellulitis on her left lower leg. It had started several days ago and became increasingly more swollen and painful to the point that she was unable to walk on it. She did use fentanyl and math immediately prior to presenting to the ER. She states that she does not remember having any chills or fever. Lower extremity Dopplers was negative for DVT. Patient was given some IV fluids and ceftriaxone and vancomycin in the ER. She was then admitted to the on-call service but boarded in the ER. She was noted initially in the ER doctor's note to of had hypoxemic episode however at the time that I was notified she was on 40 L oxygen with FiO2 of 45% on presentation to the ICU. Of note patient was recently hospitalized December 02 at [facility] with with overdose on fentanyl was found down and was intubated for 24 hours and extubated. Most recent echo was in October of 2023 which showed a EF of 60%. Patient had CTA at [facility] that showed no cause for her chronic pulmonary hypertension. It is thought that she has category 1 pulmonary artery hypertension secondary to methamphetamine use. Patient has right heart failure. Past medical history: 1. Fentanyl IV use disorder for 10 years with recent overdose and hospitalization with intubation at [facility] December 02 and discharged December 04 2. 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 Pulmonary artery hypertension thought secondary to methamphetamine abuse. Patient has not undergone right heart catheterization or vasodilators study because she has not been able to follow through Patient sees a siphon operator at [facility] 4. Right heart failure secondary to probable pulmonary hypertension. Followed by Dr. Milton at [facility] 5. Tubo-ovarian abscess 1 year ago, resolved on last pelvic ultrasound. Never followed up with [place] [facility] 6. Inflammatory tinea corporis 7. Tricuspid regurgitation 8. Hypertension 9. Normal spontaneous vaginal delivery x1 10. Tobacco use, half pack a day since age 13 Clonidine 0.1 mg daily Lasix 20 mg daily Patient currently not compliant on medications Has been on Suboxone I think prescribed by [facility] Albuterol as needed Allergies no known drug allergies Past surgical history: Negative Health related behavior as above Family history: Mom from liver cancer in November Mom with valvular heart disease Depression Anxiety COPD Review of systems: Negative for any vomiting or nausea diarrhea or abdominal pain. Patient with scabs on her face. Denies accident. Wound on left medial knee but looks more like a blister Several day history of leg pain and unable to walk on it PFSH Medical History Opioid use disorder Methamphetamine use disorder, severe, in early remission Skin rash Anxiety Social History Smoking Status: Current every day smoker Meds Home Medications and Allergies Home Medications Medication Instructions Recorded Confirmed Type furosemide 40 mg tablet (Lasix) 40 mg PO DAILY #7 tabs 12/05/22 10/20/23 Rx ondansetron 4 mg disintegrating 4 mg PO Q6H PRN nausea and 10/24/23 Rx tablet vomiting #10 tabs doxycycline hyclate 100 mg capsule 100 mg PO BID #20 caps 11/10/23 Rx albuterol sulfate 90 mcg/actuation 2 puff inhalation Q4-6H PRN 11/17/23 11/17/23 History aerosol inhaler buprenorphine 8 mg-naloxone 2 mg 2 film buccal Q24H 11/17/23 11/17/23 History sublingual film (Suboxone) albuterol sulfate 90 mcg/actuation 2 puff inhalation 4XD 01/24/24 History aerosol inhaler furosemide 20 mg tablet 20 mg PO DAILY PRN swelling 01/24/24 History potassium chloride 10 mEq 10 meq PO DAILY 01/24/24 History tablet,extended release Allergies Allergy/AdvReac Type Severity Reaction Status Date / Time No Known Drug Allergies Allergy Verified 11/10/23 17:25 Exam Vital Signs (past 8 hours): - 01/24/24 05:30 01/24/24 05:30 01/24/24 05:33 Temperature Pulse Rate 120 H Respiratory Rate Blood Pressure 129/86 Pulse Oximetry 97 100 Oxygen Delivery Method Heated High Flow High Flow Nasal Cannula Oxygen Flow Rate 25 25 01/24/24 05:33 01/24/24 05:40 01/24/24 05:40 Temperature Pulse Rate 125 H 122 H Respiratory Rate 22 25 H Blood Pressure 129/84 Pulse Oximetry 95 98 Oxygen Delivery Method Oxygen Flow Rate 01/24/24 05:50 01/24/24 05:50 01/24/24 06:00 Temperature Pulse Rate 120 H Respiratory Rate Blood Pressure 128/85 122/82 Pulse Oximetry 96 Oxygen Delivery Method Heated High Flow Oxygen Flow Rate 25 01/24/24 06:00 01/24/24 06:10 01/24/24 06:10 Temperature Pulse Rate 118 H 117 H Respiratory Rate 24 Blood Pressure 125/85 Pulse Oximetry 98 98 Oxygen Delivery Method Heated High Flow Heated High Flow Oxygen Flow Rate 25 25 01/24/24 06:20 01/24/24 06:20 01/24/24 06:30 Temperature Pulse Rate 116 H Respiratory Rate Blood Pressure 134/74 124/74 Pulse Oximetry 98 Oxygen Delivery Method Heated High Flow Oxygen Flow Rate 25 01/24/24 06:30 01/24/24 06:40 01/24/24 06:40 Temperature 97.8 F Pulse Rate 115 H 116 H Respiratory Rate 25 H Blood Pressure 133/79 Pulse Oximetry 98 99 Oxygen Delivery Method Heated High Flow Oxygen Flow Rate 25 01/24/24 07:00 01/24/24 07:00 01/24/24 07:10 Temperature Pulse Rate 113 H Respiratory Rate 25 H Blood Pressure 127/79 122/81 Pulse Oximetry 99 Oxygen Delivery Method Oxygen Flow Rate 01/24/24 07:10 01/24/24 07:20 01/24/24 07:20 Temperature Pulse Rate 113 H 112 H Respiratory Rate 28 H 25 H Blood Pressure 118/78 Pulse Oximetry 97 98 Oxygen Delivery Method Oxygen Flow Rate 01/24/24 07:30 01/24/24 07:30 01/24/24 07:40 Temperature Pulse Rate 112 H Respiratory Rate 25 H Blood Pressure 121/77 117/76 Pulse Oximetry 99 Oxygen Delivery Method Oxygen Flow Rate 01/24/24 07:40 01/24/24 07:50 01/24/24 07:50 Temperature Pulse Rate 110 H 110 H Respiratory Rate 24 23 Blood Pressure 114/78 Pulse Oximetry 98 99 Oxygen Delivery Method Heated High Flow Oxygen Flow Rate 25 01/24/24 08:00 01/24/24 08:00 01/24/24 08:10 Temperature Pulse Rate 110 H 110 H Respiratory Rate 23 24 Blood Pressure 122/84 Pulse Oximetry 99 98 Oxygen Delivery Method Oxygen Flow Rate 01/24/24 08:20 01/24/24 08:30 01/24/24 08:30 Temperature Pulse Rate 111 H 108 H Respiratory Rate 26 H 27 H Blood Pressure 127/81 Pulse Oximetry 98 98 Oxygen Delivery Method Oxygen Flow Rate 01/24/24 08:40 01/24/24 08:50 01/24/24 09:00 Temperature Pulse Rate 109 H 107 H 107 H Respiratory Rate 26 H 25 H 25 H Blood Pressure Pulse Oximetry 98 99 97 Oxygen Delivery Method Oxygen Flow Rate 01/24/24 09:00 01/24/24 09:10 01/24/24 09:20 Temperature Pulse Rate 107 H 106 H Respiratory Rate 24 24 Blood Pressure 121/79 Pulse Oximetry 97 97 Oxygen Delivery Method Oxygen Flow Rate 01/24/24 09:30 01/24/24 09:30 01/24/24 09:40 Temperature Pulse Rate 107 H 107 H Respiratory Rate 24 25 H Blood Pressure 124/81 Pulse Oximetry 97 97 Oxygen Delivery Method Oxygen Flow Rate 01/24/24 09:50 01/24/24 10:00 01/24/24 10:00 Temperature Pulse Rate 106 H 106 H Respiratory Rate 24 25 H Blood Pressure 115/82 Pulse Oximetry 97 97 Oxygen Delivery Method Oxygen Flow Rate 01/24/24 10:06 01/24/24 10:10 01/24/24 10:20 Temperature Pulse Rate 107 H 107 H 107 H Respiratory Rate 25 H 23 Blood Pressure 115/82 Pulse Oximetry 92 92 92 Oxygen Delivery Method Oxygen Flow Rate 01/24/24 10:30 01/24/24 10:31 01/24/24 10:31 Temperature Pulse Rate 109 H 109 H Respiratory Rate 25 H 23 Blood Pressure 108/83 Pulse Oximetry 92 92 Oxygen Delivery Method Oxygen Flow Rate 01/24/24 10:40 01/24/24 10:50 01/24/24 11:00 Temperature Pulse Rate 105 H 106 H 107 H Respiratory Rate 25 H 23 22 Blood Pressure Pulse Oximetry 91 91 89 L Oxygen Delivery Method Heated High Flow Oxygen Flow Rate 01/24/24 11:01 01/24/24 11:01 01/24/24 11:15 Temperature Pulse Rate 107 H Respiratory Rate 26 H Blood Pressure 123/86 Pulse Oximetry 89 L 94 Oxygen Delivery Method Heated High Flow Oxygen Flow Rate 01/24/24 11:28 04/30/24 11:28 Temperature Pulse Rate 106 H 106 H Respiratory Rate 24 24 Blood Pressure 128/77 Pulse Oximetry 94 Oxygen Delivery Method Oxygen Flow Rate Oxygen Delivery Method Heated High Flow Oxygen Flow Rate 25 Narrative Exam Narrative: Patient awakens and recognizes me. She is able to give me history. She is alert to person and to place but not time. She is lying in the hospital bed sleeping and states she feels better. HEENT is remarkable her scabs left upper and lower lip with some associated swelling but no significant erythema scab with some purulent discharge on her left lateral nares and excoriated sores on her left cheek Neck: Supple without masses Chest: Clear to auscultation bilaterally without wheezes or rhonchi but decreased breath sounds in the bases Abdomen: Positive bowel sounds, soft, nontender, nondistended, no hepatosplenomegaly Extremities left lower extremity with 3+ pitting edema over the gastrocnemius lower leg up to the knee. She is associated significant erythema with almost vesicle lesion on the medial left knee. This is different than her underlying mottling of her skin which has been biopsied in his thought to be a chronic tinea corporis for which she sees Dermatology at [place] [id number]. Pulses intact. Neurologic exam is nonfocal other than sedation inpatient is somewhat groggy Objective Labs 01/23/24 22:33 01/23/24 23:55 Labs: Laboratory Results - last 24 hr 01/23/24 01/23/24 01/23/24 21:30 21:55 22:33 WBC 12.0 H RBC 4.91 Hgb 13.6 Hct 42.3 MCV 86.1 MCH 27.6 MCHC 32.1 RDW 16.6 H Plt Count 237 Neut % (Auto) 85.3 H Lymph % (Auto) 10.6 L [place] % (Auto) 3.1 Eos % (Auto) 0.6 L Baso % (Auto) 0.4 Neut # (Auto) 45360 H Lymph # (Auto) 1300 [place] # (Auto) 400 Eos # (Auto) 100 Baso # (Auto) 100 Sodium Potassium Chloride Carbon Dioxide BUN Creatinine Estimated GFR BUN/Creatinine Ratio Glucose Lactate 2.5 H Calcium Total Bilirubin AST ALT Alkaline Phosphatase Total Creatine Kinase Troponin I NT-Pro-B Natriuret Pep Total Protein Albumin Globulin Albumin/Globulin Ratio Lipase Procalcitonin Serum , Qual Negative Urine RBC 0-1/hpf Urine WBC 0-1/hpf Ur Squamous Epith Cells 5-10 /hpf H Urine Bacteria Moderate (10-30) H Hyaline Casts 0-1/lpf Urine Mucus 1+ H Ur Culture Indicated? Cult not indicated Vol Urine Centrifuged 10ml (spun) Nasal Screen MRSA (PCR) SARS-CoV-2 (PCR) Negative Influenza A (RT-PCR) Flu a negative Influenza B (RT-PCR) Flu b negative RSV (PCR) Negative 01/23/24 01/24/24 01/24/24 23:55 02:42 11:21 WBC RBC Hgb Hct MCV MCH MCHC RDW Plt Count Neut % (Auto) Lymph % (Auto) [place] % (Auto) Eos % (Auto) Baso % (Auto) Neut # (Auto) Lymph # (Auto) [place] # (Auto) Eos # (Auto) Baso # (Auto) Sodium 135 L Potassium 4.0 Chloride 106 Carbon Dioxide 23 BUN 17 Creatinine 0.73 Estimated GFR > 60 BUN/Creatinine Ratio 23.3 H Glucose 83 Lactate 1.1 Calcium 7.8 L Total Bilirubin 1.1 AST 64 H ALT 57 H Alkaline Phosphatase 120 Total Creatine Kinase 194 H Troponin I 0.017 NT-Pro-B Natriuret Pep 2290 H Total Protein 6.7 Albumin 3.6 Globulin 3.1 Albumin/Globulin Ratio 1.2 Lipase 59 Procalcitonin 0.11 Serum , Qual Urine RBC Urine WBC Ur Squamous Epith Cells Urine Bacteria Hyaline Casts Urine Mucus Ur Culture Indicated? Vol Urine Centrifuged Nasal Screen MRSA (PCR) Detected H SARS-CoV-2 (PCR) Influenza A (RT-PCR) Influenza B (RT-PCR) RSV (PCR) Assessment & Plan Assessment & Plan narrative: 33-year-old female with history of methamphetamine and fentanyl abuse and use immediately prior to presenting to the ER admitted with acute respiratory failure and cellulitis Assessment 1. Acute respiratory failure suspect fluid overload secondary to right ventricular heart failure secondary to most likely pulmonary hypertension secondary to methamphetamine inhalation and usage. Unfortunately patient has not been able to have her right heart catheterization and vasodilators study so this has not yet been proven but is suspected. Suspect respiratory failure is a combination of methamphetamine and fentanyl use acutely as well as fluid overload Plan: Will admit to the ICU RT consult Supportive care with oxygen Lasix diuresis 40 mg IV q.12 hours. Patient is a full code would want to be intubated should her respiratory status declined. If this occurs we will then consult E ICU Will provide lorazepam as needed. Hydrocodone as needed pain Assessment 2. Cellulitis with initial lactate elevated and repeat normal and fever on presentation. Patient is MRSA positive in the nares. Plan: Continue ceftriaxone and vancomycin. White count is 12. Will treat fever with Tylenol. Blood cultures are pending. Assessment 3. Right heart failure Plan: Last echo showed an EF of 60% with severely dilated right ventricle and right ventricle dysfunction. This was done in October of 2023. We will repeat if indicated. CK slightly elevated but troponin negative. We will repeat in the a.m.. Help Desk Technician is Dr. Milton at [facility]. Assessment number for underlying inflammatory tinea corporis Plan: Supportive care DVT prophylaxis Lovenox GI prophylaxis pantoprazole Unclear patient will be willing to stay in the hospital. We will continue to treat as we are able and I discussed the importance of treating her infection and that she should stay here until were able to treat her infection. Code status is full code 77 minutes was spent with patient discussing with physicians, nursing, reviewing her chart and her workup including reviewing notes from Cardiology and pulmonology at [facility] as well as recent hospitalization in [facility].
[2024-01-24] MEDS: cefTRIAXone 1,000 MG in SODIUM CHLORIDE 0.9% 100 ML 200 MG IV (14:18)
[2024-01-24] MEDS: VANCOMYCIN 1,250 MG/250 ML PIGGYBACK 250 MG IV ×2 (14:52→22:58)
[2024-01-24] MEDS: FUROSEMIDE 40 MG/4 ML VIAL IV ×2 (16:01→23:45)
[2024-01-24 17:24] LABS: Ur Creatinine Normal (Normal); Ur Specific Gravity Normal (Normal); Urine pH Normal (Normal)
[2024-01-24 17:25] LABS: Urine Amphetamines Positive (Negative); Urine Barbiturates Negative (Negative); Urine Benzodiazepines Positive (Negative); Urine Cocaine Negative (Negative); Urine MDMA Negative (Negative); Urine Methadone Negative (Negative); Urine Methamphetamines Positive (Negative); Urine Opiates Negative (Negative); Urine Oxycodone Negative (Negative); Urine Phencyclidine Negative (Negative); Urine THC Negative (Negative); Urine Tricyclic Antidepressant Negative (Negative)
--- NOTE | 2024-01-24 18:35 | PC.ADMIT ---
[address] Admission Note: The patient,Lindy Aldridge,33 y/o, was given written information regarding hospital policies, unit procedures and contact persons. Patient's smoking status: Current every day smoker. Vital Signs - 8 hr 01/24/24 10:40 01/24/24 10:50 01/24/24 11:00 Temperature Pulse Rate 105 H 106 H 107 H Respiratory Rate 25 H 23 22 Blood Pressure Pulse Oximetry 91 91 89 L Oxygen Delivery Method Heated High Flow Oxygen Flow Rate 01/24/24 11:01 01/24/24 11:01 01/24/24 11:12 Temperature 98.4 F Pulse Rate 107 H 107 H Respiratory Rate 26 H 21 Blood Pressure 123/86 128/77 Pulse Oximetry 89 L 96 Oxygen Delivery Method Oxygen Flow Rate 40 01/24/24 11:15 01/24/24 11:28 01/24/24 11:28 Temperature Pulse Rate 106 H 106 H Respiratory Rate 24 24 Blood Pressure 128/77 Pulse Oximetry 94 94 Oxygen Delivery Method Heated High Flow Oxygen Flow Rate 01/24/24 13:03 01/24/24 13:10 01/24/24 13:20 Temperature 98.6 F Pulse Rate 108 H 109 H 109 H Respiratory Rate 27 H 32 H 24 Blood Pressure 127/86 Pulse Oximetry 98 99 96 Oxygen Delivery Method Oxygen Flow Rate 01/24/24 13:30 01/24/24 13:40 01/24/24 13:50 Temperature Pulse Rate 111 H 115 H 118 H Respiratory Rate 26 H 26 H 72 H Blood Pressure Pulse Oximetry 96 93 92 Oxygen Delivery Method Oxygen Flow Rate 01/24/24 13:53 01/24/24 14:00 01/24/24 14:00 Temperature Pulse Rate 114 H 112 H Respiratory Rate 24 24 Blood Pressure 127/86 138/93 H Pulse Oximetry 93 95 Oxygen Delivery Method Oxygen Flow Rate 01/24/24 14:10 01/24/24 14:20 01/24/24 14:30 Temperature Pulse Rate 110 H 110 H 107 H Respiratory Rate 28 H 27 H 30 H Blood Pressure Pulse Oximetry 95 77 L 79 L Oxygen Delivery Method Oxygen Flow Rate 01/24/24 14:40 01/24/24 14:50 01/24/24 15:00 Temperature Pulse Rate 108 H 112 H Respiratory Rate 35 H 28 H Blood Pressure 122/77 Pulse Oximetry 91 95 Oxygen Delivery Method Oxygen Flow Rate 01/24/24 15:00 01/24/24 15:10 01/24/24 15:20 Temperature Pulse Rate 109 H 111 H 113 H Respiratory Rate 27 H 27 H 26 H Blood Pressure Pulse Oximetry 94 94 85 L Oxygen Delivery Method Oxygen Flow Rate 01/24/24 15:27 01/24/24 15:30 01/24/24 15:39 Temperature Pulse Rate 113 H 115 H Respiratory Rate 24 31 H Blood Pressure 122/77 Pulse Oximetry 92 91 Oxygen Delivery Method Heated High Flow Oxygen Flow Rate 01/24/24 16:00 01/24/24 16:00 01/24/24 16:30 Temperature Pulse Rate 109 H 110 H Respiratory Rate 25 H 31 H Blood Pressure 121/79 Pulse Oximetry 94 93 Oxygen Delivery Method Oxygen Flow Rate 01/24/24 17:18 Temperature Pulse Rate 114 H Respiratory Rate 22 Blood Pressure 113/56 L Pulse Oximetry 100 Oxygen Delivery Method Oxygen Flow Rate Pt assisted to bed via slide board, currently on HHF 40L/45% sat of 91%, pt rouses to voice, quickly falls back to sleep. VSS oriented to room and call light system, Dr Yeager informed of pt arrival, waiting on orders, will continue to monitor
[2024-01-24] MEDS: LORazepam 0.5 MG TABLET PO (20:54)
[2024-01-24] MEDS: HYDROCODONE/ACET 5/325 TABLET 1 TAB PO (20:54)
[2024-01-25] VITALS (33 sets, daily range): BP systolic 91–130; BP diastolic 53–81; PULSE 80–126; RESP 20–39; TEMP 36.3–36.8; O2SAT 91–97
[2024-01-25] MEDS: LORazepam 0.5 MG TABLET PO ×6 (01:08→23:23)
[2024-01-25] MEDS: HYDROCODONE/ACET 5/325 TABLET 1 TAB PO ×6 (01:08→23:23)
--- NOTE | 2024-01-25 04:56 | PC.NURSE ---
rn night RN note Pt resting in bed, A&Ox3, vague on situation at times, impulsive and tries to get up out of bed to commode without calling for assistance, bed alarm on, unsteady on feet, up with one assist to commode frequently to void, VSS, Tmax 102.2, VSS, ST 100-120s, 4+ pitting edema bilat lower legs with L leg slgihtly larger than R, weak pulses, bilat lower legs red/warm erythema, face pale, mottled from chest to knees, lungs decreased t/o, SOBOE, O2 sats >90% on heated highflow 35L/34%, quickly desates to 80s when takes off O2, abd soft with BS, frequently asking for snacks, voiding large amts of clear yellow urine in commode, lasix given as ordered, periph IV sites x2 patent, c/o pain to legs and often states she is anxious and wants to leave for a fix, norco and ativan given with mod effect, continue to monitor
[2024-01-25 05:18] LABS: Add Manual Diff / Slide Review NO; Basophils Absolute Auto 100 /uL (0-100); Basophils Percent Auto 0.2 % (0-2); Eosinophils Absolute Auto 100 /uL (0-450); Eosinophils Percent Auto 0.6 % (2-4); Hematocrit 36.1 % (36-46); Hemoglobin 11.9 g/dL (12.0-16.0); Lymphocytes Absolute Auto 2000 /uL (1100-4500); Lymphocytes Percent Auto 9.5 % (25-40); Mean Corpuscular Hemoglobin 27.8 PG (26-34); Mean Corpuscular Volume 84.3 fL (80-100); Monocytes Absolute Auto 700 /uL (0-900); Monocytes Percent Auto 3.5 % (3-14); Neutrophils Absolute Auto 18200 /uL (1500-7000); Neutrophils Percent Auto 86.2 % (50-75); Platelet Count 181 X10^3/uL (150-400); Red Blood Cell Count 4.29 X10^6/uL (4.0-5.2); Red Cell Distribution Width 16.7 % (11.6-14.8)
[2024-01-25 05:27] LABS: Alanine Aminotransferase 46 IU/L (<35); Albumin 3.2 g/dL (3.5-5.0); Alkaline Phosphatase 103 U/L (38-126); Aspartate Aminotransferase 52 IU/L (14-36); Bilirubin Total 1.7 mg/dL (0.2-1.3); Blood Urea Nitrogen 19 mg/dL (7-17); Calcium 7.9 mg/dL (8.4-10.2); Carbon Dioxide 28 mmol/L (22-32); Chloride 100 mmol/L (98-107); Estimated Glomerular Filt Rate > 60 mL/min (>60); Globulin 3.2 g/dL (1.7-4.1); Glucose 127 mg/dL (70-100); HEMOLYSIS < 15 (0-50); Potassium 2.8 mmol/L (3.4-5.1); Sodium 133 mmol/L (137-145); Total Protein 6.4 g/dL (6.3-8.2)
[2024-01-25 05:28] LABS: White Blood Cell Count 21.1 X10^3/uL (4.5-11.0)
[2024-01-25 05:29] LABS: Creatine Kinase 88 U/L (30-135)
[2024-01-25 05:39] LABS: Troponin I < 0.012 ng/mL (0.01-0.034)
[2024-01-25] MEDS: VANCOMYCIN 1,250 MG/250 ML PIGGYBACK 250 MG IV ×2 (06:25→15:13)
[2024-01-25] MEDS: POTASSIUM CHLORIDE 20 MEQ TAB 40 MEQ PO ×3 (08:19→20:56)
[2024-01-25] MEDS: SODIUM CHLORIDE 0.9% FLUSH 10 ML IV ×3 (08:19→19:53)
--- NOTE | 2024-01-25 08:39 | DI.ECHO.S_ITS ---
[place] +---------+ Hospital : : [address] : : [place] : : [id number] : : Phone: [phone] Echocardiogram Report + + :Name: LOUIE RUIZ Study Date: 01/25/2024 Height: 64 in : :Hospital ReadingLocation: Weight: 208 lb : : Gender: Female BSA: 2.0 m2 : :: 1990 Age: 33 yrs BP: 115/81 mmHg: :Reason For Study: CARDIAC HISTORY WITH DRUG USE : :Ordering Physician: DANGELO, : :ANN MARIE Performed By: Yaz Toledo : :Referring: ANN MARIE PIERSON : + + Interpretation Summary 1) Small left ventricular cavity with normal systolic functoin (EF 55-60%). 2) The interventricular septum is flattened, consistent with a right ventricular pressure/volume condition. 3) Severely enlarged right ventricle with moderately to severely reduced function. 4) There is severe functional tricuspid regurgitation. 5) The right ventricular systolic pressure is estimated to be at least 85 mmHg based on an estimated right atrial pressure of 15 mm Hg. 6) No prior Echo available for comparison. Procedure: A two-dimensional transthoracic echocardiogram with color flow and Doppler was performed. The study quality was technically adequate. There is no prior echocardiogram noted for this patient. The heart rate ranged between 115-132 bpm during the study. Left Ventricle: The left ventricular cavity is small. There is borderline concentric left ventricular hypertrophy. The ejection fraction is estimated to be 55-60%. The interventricular septum is flattened, consistent with a right ventricular pressure/volume condition. Diastolic function could not be accurately assessed due to tachycardia. Right Ventricle: The right ventricle is severely dilated. Right ventricular systolic function is moderate to severely reduced. Atria: The left atrial size is normal. The right atrium is severely dilated. There is no Doppler evidence for an interatrial shunt. Mitral Valve: There is a flat closure plane of the the mitral valve leaflets. There is trace mitral regurgitation. Aortic Valve: The aortic valve is trileaflet. The aortic valve opens well. There is no aortic valve stenosis. No aortic regurgitation is present. Tricuspid Valve: The tricuspid annulus is dilated. Malcoaptation of tricuspid valve leaflets. There is severe tricuspid regurgitation. The right ventricular systolic pressure is estimated to be at least 85 mmHg based on an estimated right atrial pressure of 15 mm Hg. Pulmonic Valve: The pulmonic valve is not well seen, but is grossly normal. There is mild pulmonic regurgitation. Great Vessels: The aortic root is normal size. The dimensions of the ascending aorta are normal. Pulmonary artery and outflow track are dilated. The IVC is dilated (diameter is greater than 2.1 cm) and it collapses less than 50% with a sniff. This suggests a high right atrial pressure of 15 mm Hg. Pericardium/ Pleura There is no pericardial effusion. There is no pleural effusion. MMode/2D Measurements & Calculations LVIDd: 3.8 cm LVOT diam: 2.0 cm LVIDs: 2.6 cm Ao root diam: 3.0 cm FS: 31.5 % asc Aorta Diam: 3.0 cm IVSd: 1.0 cm Ao Arch Diam (Prox Trans): 2.6 cm LVPWd: 1.1 cm LV ba. diameter/BSA (cm/m^2): 1.9 LV sys. diameter/BSA (cm/m^2): 1.3 LA A2 area: 15.4 cm2 RA long axis: 6.7 cm LA A4 area: 10.8 cm2 RA area: 29.4 cm2 LA length (vol): 5.7 cm RA vol: 109.9 ml LA vol: 24.6 ml RA : 55.2 ml/m2 LA vol index: 12.4 ml/m2 IVC diam: 2.9 cm RVD1 (basal): 5.1 cm RVD2 (mid): 4.8 cm TAPSE: 1.3 cm Doppler Measurements & Calculations Ao V2 max: 142.7 cm/sec LVOT Max Heath: 99.8 cm/sec Ao V2 mean: 101.5 cm/sec LV V1 max P.0 mmHg Ao max P.2 mmHg LV V1 VTI: 13.2 cm Ao mean P.7 mmHg NEVILLE(I,D): 2.0 cm2 Ao V2 VTI: 20.0 cm NEVILLE(V,D): 2.1 cm2 sev ratio: 0.66 NEVILLE indexed to BSA (cm^2/m^2): 1.00 Med Peak E' Heath: 9.8 cm/sec TR max heath: 436.5 cm/sec Lat Peak E' Heath: 18.1 cm/sec TR max P.9 mmHg PA V2 max: 122.3 cm/sec PA V2 mean: 87.1 cm/sec PA mean P.4 mmHg PA pr(Accel): 48.2 mmHg SVLVOT): 39.7 ml Reading Physician:01:04 PM
[2024-01-25 08:43] LABS: Magnesium 1.4 mg/dL (1.6-2.3)
[2024-01-25 09:19] LABS: NT-proBNP (BNP-Adult 18+) 3530 pg/mL (<125)
--- NOTE | 2024-01-25 09:47 | P.PN_ITS ---
Subjective Subjective Date Patient Seen: 01/25/24 Time Patient Seen: 09:47 Interval history: Patient had fairly uneventful night. Oxygen was weaned down to 35% from 40%. Patient had huge diuresis with Lasix 40 mg at 3:00 p.m. and 40 mg at midnight. 4 L out. Patient with fever of 102 last night. Patient is awake and talking and complaining of not liking the mask. She feels her leg is better. She was able to stand on it last night when she got up to go to the bathroom. She is still eating ravenously. Twelve point review of systems is otherwise negative Patient only use drugs orally or inhalation. She does not inject IV drugs Patient has inflammatory at tinea corporis and psoriasis and that is her chronic underlying skin condition. Exam Vital Signs (past 8 hours): - 01/25/24 02:00 01/25/24 02:00 01/25/24 03:00 Temperature Pulse Rate 119 H 115 H Respiratory Rate 25 H 25 H Blood Pressure 103/68 Pulse Oximetry 96 94 Oxygen Delivery Method Oxygen Flow Rate 35 01/25/24 03:00 01/25/24 03:00 01/25/24 04:00 Temperature 97.9 F Pulse Rate 113 H Respiratory Rate 24 Blood Pressure 101/58 L Pulse Oximetry 94 Oxygen Delivery Method Heated High Flow Oxygen Flow Rate 35 35 01/25/24 04:00 01/25/24 05:00 01/25/24 05:00 Temperature Pulse Rate 111 H Respiratory Rate 24 Blood Pressure 91/58 L 97/59 L Pulse Oximetry 95 Oxygen Delivery Method Oxygen Flow Rate 35 01/25/24 06:00 01/25/24 06:00 01/25/24 07:00 Temperature Pulse Rate 105 H 108 H Respiratory Rate 30 H 23 Blood Pressure 97/53 L Pulse Oximetry 94 95 Oxygen Delivery Method Oxygen Flow Rate 35 01/25/24 07:00 01/25/24 08:00 01/25/24 08:00 Temperature Pulse Rate 108 H Respiratory Rate 25 H Blood Pressure 102/60 104/62 Pulse Oximetry 94 Oxygen Delivery Method Oxygen Flow Rate 01/25/24 09:00 01/25/24 09:00 01/25/24 09:13 Temperature Pulse Rate 109 H 113 H Respiratory Rate 26 H 20 Blood Pressure 114/73 114/73 Pulse Oximetry 95 96 Oxygen Delivery Method Oxygen Flow Rate Oxygen Delivery Method Heated High Flow Oxygen Flow Rate 35 Narrative Exam Narrative: Patient is currently afebrile heart rate is in the low 100s but does go up to 150 intermittently. Patient had a 6 beat run of V-tach this morning. She was asymptomatic HEENT shows no changes in scabs on her face. No associated cellulitis. Neck: Supple Chest: Decreased breath sounds bibasilar with crackles scattered wheeze but overall clear. Not significantly changed from yesterday Cor regular rhythm and mild tachycardia distant S1-S2 Abdomen: Positive bowel sounds, soft, nontender, nondistended Extremities: Patient has chronic mottling of bilateral lower extremities. Her left lower extremity cellulitis which is encompassing her left lower leg to medial thigh and knee. The area that I suspected to be vesicular is an old scar patient is able to tell me this. Swelling is decreased. Patient is able to move extremities well without any difficulty Pulses are 2+ bilateral dorsalis pedis Neurologic exam is nonfocal Objective Labs 01/25/24 04:25 01/25/24 04:25 Labs: Laboratory Results - last 24 hr 01/24/24 01/24/24 01/25/24 11:21 16:34 04:25 WBC 21.1 H D RBC 4.29 Hgb 11.9 L Hct 36.1 MCV 84.3 MCH 27.8 MCHC 33.0 RDW 16.7 H Plt Count 181 Neut % (Auto) 86.2 H Lymph % (Auto) 9.5 L [place] % (Auto) 3.5 Eos % (Auto) 0.6 L Baso % (Auto) 0.2 Neut # (Auto) 69045 H Lymph # (Auto) 2000 [place] # (Auto) 700 Eos # (Auto) 100 Baso # (Auto) 100 Sodium 133 L Potassium 2.8 L D Chloride 100 Carbon Dioxide 28 BUN 19 H Creatinine 0.76 Estimated GFR > 60 BUN/Creatinine Ratio 25.0 H Glucose 127 H Calcium 7.9 L Magnesium 1.4 L Total Bilirubin 1.7 H AST 52 H ALT 46 H Alkaline Phosphatase 103 Total Creatine Kinase 88 Troponin I < 0.012 NT-Pro-B Natriuret Pep 3530 H Total Protein 6.4 Albumin 3.2 L Globulin 3.2 Albumin/Globulin Ratio 1.0 Nasal Screen MRSA (PCR) Detected H U Opiates 300ng/mL cut Negative Ur Oxycodone Screen Negative Urine Methadone Screen Negative Ur Barbiturates Screen Negative U Tricyclic Antidepress Negative Ur Phencyclidine Scrn Negative Ur Amphetamines Screen Positive H U Methamphetamines Scrn Positive H Ur MDMA Scrn (Ecstasy) Negative U Benzodiazepines Scrn Positive H Urine Cocaine Screen Negative U Marijuana (THC) Screen Negative Urine pH Normal Urine Specific [place] Normal Ur Creatinine Normal [facility] Medical History Opioid use disorder Methamphetamine use disorder, severe, in early remission Skin rash Anxiety Social History Smoking Status: Current every day smoker Assessment & Plan Assessment & Plan narrative: 33-year-old female with history of methamphetamine and fentanyl abuse and use immediately prior to presenting to the ER admitted with acute respiratory failure and cellulitis Assessment 1. Acute respiratory failure suspect fluid overload secondary to right ventricular heart failure secondary to most likely pulmonary hypertension secondary to methamphetamine inhalation and usage. Unfortunately patient has not been able to have her right heart catheterization and vasodilators study so this has not yet been proven but is suspected. Suspect respiratory failure is a combination of methamphetamine and fentanyl use acutely as well as fluid overload. Patient with excellent diuresis overnight. We will continue the same. Plan: RT consult ongoing Supportive care with oxygen Lasix diuresis 40 mg IV q.12 hours. Will continue the same. Patient has had excellent diuresis and I suspect this is at least part if not totally her etiology for hypoxemia. As well infection likely contributing. Blood cultures are pending. Will repeat echo. EF was 60% in October on echo patient with dilated right ventricle and right heart failure with pulmonary hypertension. Clearly this is playing a part. Patient is a full code would want to be intubated should her respiratory status declined. If this occurs we will then consult E ICU Will provide lorazepam as needed. Hydrocodone as needed pain Assessment 2. Cellulitis with initial lactate elevated and repeat normal and fever on presentation. Patient is MRSA positive in the nares. Plan: Continue ceftriaxone and vancomycin. White count is elevated to 21 today. Patient did have a fever overnight. Suspect that it will take further antibiotic treatment time before we see a trend down on her white blood cell count and her fever. If we are not seeing this in the next 24 hours we will add antibiotic coverage. Patient currently on vancomycin and ceftriaxone.. Will treat fever with Tylenol. Blood cultures are pending but thus far are negative. Assessment 3. Right heart failure Plan: Last echo showed an EF of 60% with severely dilated right ventricle and right ventricle dysfunction. This was done in October of 2023. We will repeat if indicated. CK slightly elevated but troponin negative. We will repeat in the a.m.. Inspector Final Assembly Conveyor Line is Dr. Milton at [facility]. CK and troponin negative. BNP pending. Continue with diuresis. Repeat echo due to tachycardia and persistent hypoxemia Assessment 4. underlying inflammatory tinea corporis Plan: Supportive care Assessment 5. Methamphetamine and fentanyl use an addiction Plan: Encouraged patient that she needs to stay here without the oxygen antibiotics she will not survive and will certainly have to come back in the hospital. We will continue to support with lorazepam. Assessment 6. Severe hypokalemia Plan: Patient given oral potassium 40 mEq. Will recheck at 4:00 p.m.. Assessment 7. Tachycardia suspect due to infection, right heart failure, fluid overload. Plan echo pending. Will start diltiazem immediate release for rate control Assessment 8. V-tach short run asymptomatic question related to hypokalemia Plan: Will treat hypokalemia to aim for a potassium above 4. Mag is pending. DVT prophylaxis Lovenox GI prophylaxis pantoprazole Unclear patient will be willing to stay in the hospital. We will continue to treat as we are able and I discussed the importance of treating her infection and that she should stay here until were able to treat her infection. Code status is full code 60 minutes was spent with patient discussing with physicians, nursing, reviewing her chart and her workup including reviewing notes from Cardiology and pulmonology at [facility] as well as recent hospitalization in [facility].
[2024-01-25] MEDS: MAGNESIUM SULFATE 2 GM/50 ML PIGGYBACK IV (10:21)
[2024-01-25] MEDS: cefTRIAXone 1,000 MG in SODIUM CHLORIDE 0.9% 100 ML 200 MG IV (12:51)
[2024-01-25] MEDS: dilTIAZem 30 MG TABLET PO ×3 (12:53→23:23)
[2024-01-25] MEDS: FUROSEMIDE 40 MG/4 ML VIAL IV ×2 (12:53→23:22)
[2024-01-25 14:34] LABS: Vancomycin Trough 17.9 ug/mL (10-20)
--- NOTE | 2024-01-25 15:36 | CM.DANOTE ---
Initial DCP Assessment Note Pt is a 33yo female, currently homeless, active IVDU- meth and fentanyl, heart failure. Recent hospitalization at [facility] for fentanyl OD, intubation and extubation, arrives in acute resp failure with cellulitis. PCP: Jaylin Yeager Payer: Karthik/CRISSY Reviewed chart, discussed patient with RN and then met at bedside with patient and her Armature Winder Repair Helper through [facility] program, Tha Mckinley [phone]. Introduced self and role. Patient sleepy although able to engage this visit. [place] discussed efforts he and patient have made in the outpatient setting to secure patient treatment. Patient has been engaged at times. Patient tells this RAZOR SHARPENER and CM [place] she can make no promises but willing to consider sobriety and treatment. Discussed detox, IOP vs inpatient drug treatment and the need for a D/A assessment before inpatient treatment bed can be secured, possibly from [facility] ([facility] This CM team can help make calls if patient remains admitted at and is motivated to stay clean and seek treatment. Also discussed temporary housing, [facility] will not be available if patient is actively using. Suggested Glad look into [facility] [employer] in [place]. In the past, someone does not need to be clean and sober to be able to sleep at one of the churches in the [facility] network. Glad appreciative and can stay in touch. CM team will plan to follow closely CARLOS Andrade Discharge Planning/Care Management CM Discharge Assessment Start: 01/25/24 15:34 Freq: Status: Active Protocol: Document 01/25/24 15:35 NEVA (Rec: 01/25/24 15:36 NEVA [id number]) Discharge Planning Assessment Assigned Instructional Technology Director CARLOS Osorio DPOA/Assigned Designee Name sister Kunz Contact Information [phone] Advance Directives? No History Provided By Patient,Medical Record Prior Living Arrangements Homeless Independent with ADL's Yes Is patient alert and oriented? Yes Barriers to Discharge Yes Comment Housing instability, very ill, current IVDU Transportation Arrangement TBD Additional Comment TBD. Following closely for discussion about [facility] treatment if patient stays and willing to consider sobriety/recovery.
[2024-01-25 18:34] LABS: NT-proBNP (BNP-Adult 18+) 1780 pg/mL (<125)
[2024-01-25 18:36] LABS: BUN Creatinine Ratio 32.2 (6-22); Blood Urea Nitrogen 19 mg/dL (7-17); Calcium 7.8 mg/dL (8.4-10.2); Carbon Dioxide 27 mmol/L (22-32); Chloride 100 mmol/L (98-107); Estimated Glomerular Filt Rate > 60 mL/min (>60); Glucose 121 mg/dL (70-100); HEMOLYSIS < 15 (0-50); Potassium 3.2 mmol/L (3.4-5.1); Sodium 131 mmol/L (137-145)
[2024-01-25] MEDS: ONDANSETRON 4 MG/2 ML INJ IV (23:22)
[2024-01-26] VITALS (44 sets, daily range): BP systolic 96–139; BP diastolic 54–89; PULSE 106–121; RESP 23–40; TEMP 36.3–37.5; O2SAT 91–100
[2024-01-26] MEDS: VANCOMYCIN 1,500 MG/300 ML PIGGYBACK 200 MG IV ×2 (03:52→15:17)
[2024-01-26 05:53] LABS: Alanine Aminotransferase 44 IU/L (<35); Albumin 3.5 g/dL (3.5-5.0); Albumin Globulin Ratio 1.1 (1.0-2.8); Alkaline Phosphatase 120 U/L (38-126); Aspartate Aminotransferase 41 IU/L (14-36); BUN Creatinine Ratio 28.1 (6-22); Bilirubin Total 1.4 mg/dL (0.2-1.3); Blood Urea Nitrogen 18 mg/dL (7-17); Calcium 7.8 mg/dL (8.4-10.2); Carbon Dioxide 31 mmol/L (22-32); Chloride 98 mmol/L (98-107); Estimated Glomerular Filt Rate > 60 mL/min (>60); Globulin 3.2 g/dL (1.7-4.1); Glucose 92 mg/dL (70-100); HEMOLYSIS < 15 (0-50); Magnesium 1.6 mg/dL (1.6-2.3); Potassium 3.5 mmol/L (3.4-5.1); Sodium 133 mmol/L (137-145); Total Protein 6.7 g/dL (6.3-8.2)
[2024-01-26 05:54] LABS: Add Manual Diff / Slide Review NO; Basophils Absolute Auto 100 /uL (0-100); Basophils Percent Auto 0.4 % (0-2); Eosinophils Absolute Auto 400 /uL (0-450); Eosinophils Percent Auto 1.8 % (2-4); Hematocrit 37.7 % (36-46); Hemoglobin 12.1 g/dL (12.0-16.0); Lymphocytes Absolute Auto 2700 /uL (1100-4500); Lymphocytes Percent Auto 13.4 % (25-40); Mean Corpuscular HGB Conc 32.2 % (30-36); Mean Corpuscular Hemoglobin 27.3 PG (26-34); Mean Corpuscular Volume 84.9 fL (80-100); Monocytes Absolute Auto 1000 /uL (0-900); Monocytes Percent Auto 4.8 % (3-14); Neutrophils Absolute Auto 15900 /uL (1500-7000); Neutrophils Percent Auto 79.6 % (50-75); Platelet Count 189 X10^3/uL (150-400); Red Blood Cell Count 4.44 X10^6/uL (4.0-5.2); Red Cell Distribution Width 16.6 % (11.6-14.8); White Blood Cell Count 19.9 X10^3/uL (4.5-11.0)
[2024-01-26] MEDS: dilTIAZem 30 MG TABLET PO ×4 (06:00→23:18)
--- NOTE | 2024-01-26 06:32 | PC.NURSE ---
behavioral health worker RN note pt restless and anxious overnight, impulsive at times, bed alarm on, 4L NC, lungs decreased, pt SOBOE, ST 110-120s, call rodriguez within reach, meds and labs as ordered
--- NOTE | 2024-01-26 08:29 | P.PN_ITS ---
Subjective Subjective Date Patient Seen: 01/26/24 Time Patient Seen: 08:29 Interval history: Patient seen in [facility] for multiple issues including acute respiratory failure right heart failure tachycardia cellulitis drug abuse primarily meth. Patient overall is feeling better this morning. Hungry. Slept well last night. Oxygen has been slowly decreasing with now 4 L. She continues her diuresis. No other changes. Exam Vital Signs (past 8 hours): - 01/26/24 01:00 01/26/24 01:00 01/26/24 02:00 Pulse Rate 121 H Respiratory Rate 31 H Blood Pressure 126/65 123/60 Pulse Oximetry 96 Oxygen Delivery Method Oxygen Flow Rate 01/26/24 02:00 01/26/24 03:00 01/26/24 03:00 Pulse Rate 119 H 117 H Respiratory Rate 33 H 26 H Blood Pressure Pulse Oximetry 94 93 Oxygen Delivery Method Nasal Cannula Oxygen Flow Rate 01/26/24 03:00 01/26/24 04:00 01/26/24 04:00 Pulse Rate 114 H Respiratory Rate 34 H Blood Pressure 108/57 L 103/54 L Pulse Oximetry 92 Oxygen Delivery Method Oxygen Flow Rate 01/26/24 05:00 01/26/24 05:00 01/26/24 05:01 Pulse Rate 111 H 112 H 111 H Respiratory Rate 32 H 26 H 32 H Blood Pressure 119/80 Pulse Oximetry 96 95 96 Oxygen Delivery Method Oxygen Flow Rate 3 01/26/24 05:01 Pulse Rate Respiratory Rate Blood Pressure 119/80 Pulse Oximetry Oxygen Delivery Method Oxygen Flow Rate Oxygen Delivery Method Nasal Cannula Oxygen Flow Rate 3 Narrative Exam Narrative: Alert female with diffuse lesions around face scabbing. Lungs pretty clear today. Heart is regular rate and rhythm with no change abdomen is soft positive bowel sounds nontender extremities show diffuse mottling in the right leg. And left leg with erythema quite intense up to the knee. Almost like a sock area at the lower leg. Tender to palpation. No abscess or other change. 2+ edema Objective Labs 01/26/24 04:55 01/26/24 04:55 Labs: Laboratory Results - last 24 hr 01/25/24 01/25/24 01/25/24 04:25 14:00 18:00 WBC RBC Hgb Hct MCV MCH MCHC RDW Plt Count Neut % (Auto) Lymph % (Auto) [place] % (Auto) Eos % (Auto) Baso % (Auto) Neut # (Auto) Lymph # (Auto) [place] # (Auto) Eos # (Auto) Baso # (Auto) Sodium 131 L Potassium 3.2 L Chloride 100 Carbon Dioxide 27 BUN 19 H Creatinine 0.59 Estimated GFR > 60 BUN/Creatinine Ratio 32.2 H Glucose 121 H Calcium 7.8 L Magnesium 1.4 L Total Bilirubin AST ALT Alkaline Phosphatase NT-Pro-B Natriuret Pep 3530 H 1780 H Total Protein Albumin Globulin Albumin/Globulin Ratio Vancomycin Trough 17.9 01/26/24 04:55 WBC 19.9 H RBC 4.44 Hgb 12.1 Hct 37.7 MCV 84.9 MCH 27.3 MCHC 32.2 RDW 16.6 H Plt Count 189 Neut % (Auto) 79.6 H Lymph % (Auto) 13.4 L [place] % (Auto) 4.8 Eos % (Auto) 1.8 L Baso % (Auto) 0.4 Neut # (Auto) 36387 H Lymph # (Auto) 2700 [place] # (Auto) 1000 H Eos # (Auto) 400 Baso # (Auto) 100 Sodium 133 L Potassium 3.5 Chloride 98 Carbon Dioxide 31 BUN 18 H Creatinine 0.64 Estimated GFR > 60 BUN/Creatinine Ratio 28.1 H Glucose 92 Calcium 7.8 L Magnesium 1.6 Total Bilirubin 1.4 H AST 41 H ALT 44 H Alkaline Phosphatase 120 NT-Pro-B Natriuret Pep Total Protein 6.7 Albumin 3.5 Globulin 3.2 Albumin/Globulin Ratio 1.1 Vancomycin Trough [facility] Medical History Opioid use disorder Methamphetamine use disorder, severe, in early remission Skin rash Anxiety Social History Smoking Status: Current every day smoker Assessment & Plan Assessment & Plan narrative: Acute respiratory failure. Patient actually seems to be improving at diuresis. No evidence of pneumonia or other cause. Appears to be secondary to her right heart failure. She is on moderately aggressive diuresis with 40 b.i.d. of Lasix IV. Which seems to be working her output has been good. She is down to 4 L now and we are hoping we can continue to reduce sat over the day. Patient has no other changes or complaints. And will continue current therapy. Cellulitis. Still quite intense. But slowly coming down white count is down to 19 from 20. No fever. As far as I can tell it is hard to define whether it is improved or not it is still pretty violaceous and tender. But appears to be improving. Clinically. No other change. Will continue antibiotics. This is going to take some time. I do not suspect it is going to be resolved and able to stop IV antibiotics over next 48-72 hours. Will continue monitoring recheck CBC in morning. Do not know bacteria. Cultures are negative. Will have to see how white count responds. Not sure how we would change antibiotic should have good coverage. Does have positive MRSA in nose and vanco should be good coverage for that will see how things go. Recheck a.m.. Right heart failure. Echo slightly decreased from last time as far as left ventricle function 55-60 now. Pretty serious right heart failure which at this point really only active ability to treat his to diurese. At this point will continue to follow hopefully we can get her stable she can take her outpatient medicines and will get back to research and evaluation analyst. Certainly seems outcome are going to be difficult unless she quit doing drugs. Discussed this with the patient. Methamphetamine and fentanyl use/addiction. Discussed with the patient. That this certainly is not going to do well for her. In the clearly will not survive much longer if she does not make some changes in her lifestyle. She voices her desire to consider treatment. Discussed with social service and will see how things go. Patient understands. That this is serious. We will see if she will follow through. But will have social service discussed. Severe hypo kalemia. Numbers look good at this point. Will continue replacement. Tachycardia. Probably secondary to infection right heart failure. Not responding to Cardizem. Will leave dose as it is today. Blood pressure really will not support any further increase. Not sure it is going to make a difference at this point. Will continue to follow. V-tach. No recurrence. But certainly does have risk with her severe right heart failure. Magnesium is normal this morning. Potassium is improved will rechecked tomorrow. DVT prophylaxis on Lovenox GI prophylaxis on pantoprazole Code status full. Disposition. Patient currently understands that if she leaves it will be very difficult her cellulitis is certainly not improved enough to go home even on oral antibiotics. She will return probably relatively quickly. O2 status is improved but will certainly will go down if she leaves Against Medical Advice. We discussed all this. She is voicing need for treatment which certainly would be awesome will see what social service can find out and what she really is interested in doing. Will not know tell the time comes. Clearly will need move more than a few days of treatment. 55 minutes spent with chart review the patient nursing dictation orders
[2024-01-26] MEDS: POTASSIUM CHLORIDE 20 MEQ TAB 40 MEQ PO (09:16)
[2024-01-26] MEDS: LORazepam 0.5 MG TABLET PO (09:16)
[2024-01-26] MEDS: HYDROCODONE/ACET 5/325 TABLET 1 TAB PO (09:16)
[2024-01-26] MEDS: MAGNESIUM CHLORIDE 64 MG TABLET 128 MG PO (09:17)
[2024-01-26] MEDS: SODIUM CHLORIDE 0.9% FLUSH 10 ML IV ×2 (09:17→21:06)
--- NOTE | 2024-01-26 11:14 | DI.RAD.S_ITS ---
PROCEDURE: XR CHEST 1V INDICATIONS: SOB/Increased O2 needs TECHNIQUE: One view of the chest was acquired. COMPARISON: [facility], CR, XR CHEST 1V, 01/23/2024, 22:29. [facility], CR, XR CHEST 1V, 11/10/2023, 17:37. FINDINGS: Surgical changes and devices: None. Lungs and pleura: Lungs are clear. No pleural effusions or pneumothorax. Mediastinum: Mediastinal contours appear normal. Heart size is enlarged. Bones and chest wall: No suspicious bony lesions. Overlying soft tissues appear unremarkable. IMPRESSION: Cardiomegaly without acute abnormality. Dictated by: Serjio Rojas M.D. on 01/26/2024 at 12:00 Approved by: Serjio Rojas M.D. on 01/26/2024 at 12:00
--- NOTE | 2024-01-26 13:17 | DI.CT.S_ITS ---
PROCEDURE: CT ANGIO CHEST PE PROTOCOL INDICATIONS: increase oxygen need TECHNIQUE: After the administration of intravenous contrast, 2 mm thick sections acquired from the pulmonary apices to the posterior costophrenic angles. 3-dimensional maximum intensity projection (MIP) coronal and sagittal reformats were then acquired through the thorax. For radiation dose reduction, the following was used: automated exposure control, adjustment of mA and/or kV according to patient size. COMPARISON: [facility], CR, XR CHEST 1V, 01/26/2024, 11:17. FINDINGS: Image quality: Diagnostic. Pulmonary arteries: Pulmonary arteries are normal in size, and demonstrate no intraluminal filling defects to suggest central pulmonary embolism. Lower Neck: No enlarged lymph nodes. Thyroid: No thyroid nodules which require sonographic follow up, per consensus guidelines. Axillae: No enlarged lymph nodes. Chest Wall: Anasarca. Bones: No suspicious osseous lesion. Lungs and Pleura: No pneumothorax. Small right pleural effusion. No consolidation or suspicious nodules. Central airways are clear. Heart: Heart size is prominent. No pericardial effusion. Small pericardial cyst or area of fluid measuring 2.3 cm, (4/104). Thoracic Vessels: No aortic aneurysm. Mediastinum and Patricia: No enlarged lymph nodes. Esophagus: No wall thickening. No hiatal hernia. Upper Abdomen: Reflux of contrast into the intrahepatic veins. Mild ascites. IMPRESSION: 1. No pulmonary embolism. 2. No acute airspace opacity. 3. Small right pleural effusion. Anasarca. Small volume of ascites. 4. Prominent heart size. Reflux of contrast into the intrahepatic veins. This could be seen in diastolic dysfunction. Dictated by: Slim Pacheco M.D. on 01/26/2024 at 16:14 Approved by: Slim Pacheco M.D. on 01/26/2024 at 16:25
--- NOTE | 2024-01-26 13:18 | P.PN_ITS ---
Subjective Subjective Date Patient Seen: 01/26/24 Interval history: Patient seen for increasing O2 requirement. Really has no complaints. Just tired. There is question whether or not she is used in the past 12 hours. No chest pain. Has been refusing her Lovenox Exam Vital Signs (past 8 hours): - 01/26/24 06:00 01/26/24 06:00 01/26/24 07:00 Pulse Rate 115 H Respiratory Rate 31 H Blood Pressure 121/71 113/60 Pulse Oximetry 100 Oxygen Delivery Method 01/26/24 07:00 01/26/24 07:00 01/26/24 07:59 Pulse Rate 113 H 114 H Respiratory Rate Blood Pressure Pulse Oximetry 100 100 Oxygen Delivery Method Nasal Cannula 01/26/24 07:59 01/26/24 08:00 01/26/24 08:00 Pulse Rate 114 H Respiratory Rate Blood Pressure 112/66 125/67 Pulse Oximetry 100 Oxygen Delivery Method 01/26/24 09:00 01/26/24 09:00 01/26/24 10:00 Pulse Rate 112 H 119 H Respiratory Rate 33 H Blood Pressure 110/64 125/68 Pulse Oximetry 91 Oxygen Delivery Method 01/26/24 11:00 01/26/24 11:21 01/26/24 11:21 Pulse Rate 114 H 116 H Respiratory Rate 32 H 31 H Blood Pressure 115/66 Pulse Oximetry 95 95 Oxygen Delivery Method 01/26/24 11:30 01/26/24 11:30 01/26/24 12:00 Pulse Rate 113 H 115 H Respiratory Rate 27 H 27 H Blood Pressure 113/64 Pulse Oximetry 98 98 Oxygen Delivery Method 01/26/24 12:00 01/26/24 12:20 01/26/24 12:30 Pulse Rate 107 H 109 H Respiratory Rate 24 27 H Blood Pressure 117/63 117/63 Pulse Oximetry 97 98 Oxygen Delivery Method 01/26/24 12:30 01/26/24 13:00 01/26/24 13:00 Pulse Rate 106 H Respiratory Rate 28 H Blood Pressure 117/69 110/72 Pulse Oximetry 95 Oxygen Delivery Method Oxygen Delivery Method Nasal Cannula Oxygen Flow Rate 3 Narrative Exam Narrative: Sleeping female in no acute respiratory distress with 40% high-flow Lungs with left basilar crackles but otherwise no change heart is regular rate and rhythm no retractions or other change Objective Labs 01/26/24 04:55 01/26/24 04:55 Labs: Laboratory Results - last 24 hr 01/25/24 01/25/24 01/26/24 14:00 18:00 04:55 WBC 19.9 H RBC 4.44 Hgb 12.1 Hct 37.7 MCV 84.9 MCH 27.3 MCHC 32.2 RDW 16.6 H Plt Count 189 Neut % (Auto) 79.6 H Lymph % (Auto) 13.4 L [place] % (Auto) 4.8 Eos % (Auto) 1.8 L Baso % (Auto) 0.4 Neut # (Auto) 96979 H Lymph # (Auto) 2700 [place] # (Auto) 1000 H Eos # (Auto) 400 Baso # (Auto) 100 Sodium 131 L 133 L Potassium 3.2 L 3.5 Chloride 100 98 Carbon Dioxide 27 31 BUN 19 H 18 H Creatinine 0.59 0.64 Estimated GFR > 60 > 60 BUN/Creatinine Ratio 32.2 H 28.1 H Glucose 121 H 92 Calcium 7.8 L 7.8 L Magnesium 1.6 Total Bilirubin 1.4 H AST 41 H ALT 44 H Alkaline Phosphatase 120 NT-Pro-B Natriuret Pep 1780 H Total Protein 6.7 Albumin 3.5 Globulin 3.2 Albumin/Globulin Ratio 1.1 Vancomycin Trough 17.9 PFSH Medical History Opioid use disorder Methamphetamine use disorder, severe, in early remission Skin rash Anxiety Social History Smoking Status: Current every day smoker Assessment & Plan Assessment & Plan narrative: Respiratory failure. Worsening. No evidence of significant change on chest x- ray. Exam pretty much the same. Has been refusing Lovenox. Will obtain CT scan PE protocol just to be sure given the fact that she has not taking her meds. Recheck after that otherwise supportive care. What problem with severe right heart failure as there has not a lot to do other than diuresis will increase Lasix to t.i.d.. Re-evaluate History of drug abuse. Question whether or not friends gave her medicines last night. We will see how things go. Will check UA to be sure certainly any meth present should not be present at this time. Should be metabolism. We will see how it goes. Disposition. Patient really is significantly ill individual with markedly reduced life span depending on how things go. Certainly she continues to use I doubt she will make it very far she leaves Against Medical Advice she would even be in worse shape. Will just have to see how things go. We had not be surprised if this was a terminal event will just have to see how things go.
[2024-01-26] MEDS: cefTRIAXone 1,000 MG in SODIUM CHLORIDE 0.9% 100 ML 200 MG IV (13:39)
[2024-01-26] MEDS: FUROSEMIDE 40 MG/4 ML VIAL IV ×2 (15:15→21:06)
--- NOTE | 2024-01-26 15:26 | CM.SWNOTE ---
REINSTATEMENT CLERK Note Discussed patient with provider and RN; patient is reporting that she is interested in treatment. Reviewed chart. Patient is still quite sick. Patient will need to be nearing medical stability, able to complete ADLs independently, and reporting that she is motivated to remain sober and participate in treatment. She is none of these things quite yet. SW team will plan to follow closely and can make calls to resources like: [facility] for D/A assessment at bedside, [facility] ([facility], [facility], [facility] in [place], [facility] (female unit) in [facility] ([facility]) ...if the above criteria is met. NEVA
--- NOTE | 2024-01-26 15:38 | PC.NURSE ---
I had a conversation with Lindy and her sister related to the hospital illegal substance policy. Lindy denies use of illegal substances since she has been in the hospital, however does report that her friends brought her a vape. Patient educated to hospital policy regarding smoking of any kind. We discuss the risk to her health, the use of illegal substances and/or the serious risk of harm if she where to leave AMA. I reviewed the need to potentially restrict visitors if staff assesses the patient to have an acute change in status or LOC and suspect that this is related to visitors possibly delivering substances. Patient reports fear of withdrawal, and lack of sleep. She is requesting medication to help her sleep, and a nicotine patch. She appears to have mild anxiety with this conversation as evidenced by being somewhat restless in bed. I reinforced our desire to be supportive in her healing process, but that she will need to also be an active participant. Lindy verbalized understanding, conversation was shared with primary RN for follow up with provider related to patient requests for additional medication.
[2024-01-26 16:03] LABS: Ur Creatinine Normal (Normal); Ur Specific Gravity Normal (Normal); Urine Amphetamines Negative (Negative); Urine Barbiturates Negative (Negative); Urine Benzodiazepines Positive (Negative); Urine Cocaine Negative (Negative); Urine MDMA Negative (Negative); Urine Methadone Negative (Negative); Urine Methamphetamines Negative (Negative); Urine Opiates Negative (Negative); Urine Oxycodone Negative (Negative); Urine Phencyclidine Negative (Negative); Urine THC Negative (Negative); Urine Tricyclic Antidepressant Negative (Negative); Urine pH Normal (Normal)
--- NOTE | 2024-01-26 16:56 | PC.NURSE ---
Addendum entered by Iraida Stockton R.N. 01/26/24 17:41: pt c/o HHF giving her a bloody nose, switched to 7L Oxy mask, sats at 92%, no further needs at this time Original Note: Pt extremely restless and anxious with intermittent sleeping, 4L NC sats at 100%, requesting food. Pt OOB to shower, requested to remove O2 for shower, sats remained at 95% for an hour prior to shower, assisted back to bed and reconnected to monitoring equipment, approx 1045 it was noted that pt O2 sat was declining into 70-60's, good wave form, pt extremely lethargic, rousing only to sternal rub. Quickly put pt on non-rebreather at 15L and called RT. Pt placed back on HHF 35L 35% FiO2, Dr Calloway was contacted, new orders placed. No further needs at this time
[2024-01-26] MEDS: HYDROCODONE/ACET 10/325 TABLET 1 TAB PO ×2 (18:06→23:19)
[2024-01-26] MEDS: LORazepam 1 MG TABLET PO ×2 (18:07→23:19)
[2024-01-26] MEDS: NICOTINE 14 PATCH 14 MG TOP (18:07)
[2024-01-26] MEDS: diphenhydrAMINE 25 MG TABLET 50 MG PO (21:05)
[2024-01-27] VITALS (27 sets, daily range): BP systolic 95–153; BP diastolic 55–89; PULSE 105–129; RESP 18–37; TEMP 36–37.1; O2SAT 87–99; BMI 33.0
[2024-01-27] MEDS: VANCOMYCIN 1,500 MG/300 ML PIGGYBACK 200 MG IV ×2 (02:42→15:58)
[2024-01-27] MEDS: HYDROCODONE/ACET 10/325 TABLET 1 TAB PO ×2 (04:28→23:10)
[2024-01-27] MEDS: LORazepam 1 MG TABLET PO ×5 (04:29→23:10)
[2024-01-27] MEDS: dilTIAZem 30 MG TABLET PO ×4 (05:37→23:10)
[2024-01-27] MEDS: FUROSEMIDE 40 MG/4 ML VIAL IV ×3 (05:37→20:51)
[2024-01-27 06:24] LABS: Add Manual Diff / Slide Review NO; Basophils Absolute Auto 100 /uL (0-100); Basophils Percent Auto 0.9 % (0-2); Eosinophils Absolute Auto 600 /uL (0-450); Eosinophils Percent Auto 4.2 % (2-4); Hematocrit 34.4 % (36-46); Hemoglobin 11.4 g/dL (12.0-16.0); Lymphocytes Absolute Auto 2100 /uL (1100-4500); Lymphocytes Percent Auto 15.5 % (25-40); Mean Corpuscular HGB Conc 33.1 % (30-36); Mean Corpuscular Hemoglobin 27.7 PG (26-34); Mean Corpuscular Volume 83.6 fL (80-100); Monocytes Absolute Auto 900 /uL (0-900); Monocytes Percent Auto 6.8 % (3-14); Neutrophils Absolute Auto 10000 /uL (1500-7000); Neutrophils Percent Auto 72.6 % (50-75); Platelet Count 207 X10^3/uL (150-400); Red Blood Cell Count 4.11 X10^6/uL (4.0-5.2); Red Cell Distribution Width 16.5 % (11.6-14.8); White Blood Cell Count 13.7 X10^3/uL (4.5-11.0)
[2024-01-27 06:35] LABS: Alanine Aminotransferase 39 IU/L (<35); Albumin 3.2 g/dL (3.5-5.0); Alkaline Phosphatase 107 U/L (38-126); Aspartate Aminotransferase 39 IU/L (14-36); BUN Creatinine Ratio 32.1 (6-22); Blood Urea Nitrogen 18 mg/dL (7-17); Calcium 7.7 mg/dL (8.4-10.2); Carbon Dioxide 31 mmol/L (22-32); Chloride 100 mmol/L (98-107); Estimated Glomerular Filt Rate > 60 mL/min (>60); Globulin 3.2 g/dL (1.7-4.1); Glucose 90 mg/dL (70-100); HEMOLYSIS < 15 (0-50); Potassium 3.4 mmol/L (3.4-5.1); Sodium 134 mmol/L (137-145); Total Protein 6.4 g/dL (6.3-8.2)
[2024-01-27 06:51] LABS: Magnesium 1.4 mg/dL (1.6-2.3)
[2024-01-27] MEDS: NICOTINE 14 PATCH 14 MG TOP (08:48)
[2024-01-27] MEDS: POTASSIUM CHLORIDE 20 MEQ TAB 40 MEQ PO (08:49)
[2024-01-27] MEDS: ENOXAPARIN 40 MG/0.4 ML SYRINGE SUBCUT (08:49)
[2024-01-27] MEDS: MAGNESIUM CHLORIDE 64 MG TABLET 128 MG PO ×2 (08:52→15:58)
--- NOTE | 2024-01-27 08:52 | PM.PN.1 ---
Subjective Subjective Date Patient Seen: 01/27/24 Time Patient Seen: 08:52 Interval history: reviewed notes from yesterday pt used drugs brought in by friends. had sudden worsening in resp status and increase oxygen needs, cta neg for PE, had been refusing lovenox. Pt feels better. Keeps taking off oxygen and o2 sats 90-95 on ra pt eating constantly Feels leg is better. Less pain Pt not interested in discussing help with cessation of drug use with me. Reviewed discussion Dr. travis had yesterday 12 point ros otherwise negative no fever over night Exam Vital Signs (past 8 hours): - 01/27/24 01:00 01/27/24 01:00 01/27/24 02:00 Temperature Pulse Rate 118 H 115 H Respiratory Rate 25 H 36 H Blood Pressure 124/77 Pulse Oximetry 95 95 Oxygen Delivery Method Oxygen Flow Rate 6 01/27/24 02:00 01/27/24 03:00 01/27/24 03:00 Temperature Pulse Rate 114 H Respiratory Rate 35 H Blood Pressure 115/71 119/55 L Pulse Oximetry 97 Oxygen Delivery Method Oxygen Flow Rate 6 6 01/27/24 03:00 01/27/24 04:00 01/27/24 04:00 Temperature 97.4 F L Pulse Rate 112 H Respiratory Rate 37 H Blood Pressure 122/74 Pulse Oximetry 94 Oxygen Delivery Method Oximask Oxygen Flow Rate 6 01/27/24 05:00 01/27/24 05:37 01/27/24 06:00 Temperature Pulse Rate 110 H 111 H 112 H Respiratory Rate 35 H 33 H Blood Pressure 115/79 115/79 124/80 Pulse Oximetry 95 94 Oxygen Delivery Method Oxygen Flow Rate 6 6 01/27/24 07:00 01/27/24 07:00 01/27/24 08:00 Temperature 97.6 F Pulse Rate 109 H 105 H Respiratory Rate 32 H 34 H Blood Pressure 114/73 Pulse Oximetry 92 97 Oxygen Delivery Method Oxygen Flow Rate 01/27/24 08:00 Temperature Pulse Rate Respiratory Rate Blood Pressure 95/60 Pulse Oximetry Oxygen Delivery Method Oxygen Flow Rate Fraction of Inspired Oxygen 35 SaO2/FiO2 Ratio 280 Oxygen Delivery Method Oximask Oxygen Flow Rate 6 Narrative Exam Narrative: Pt laying in hospital bed with slight increased RR but stable o2 sat on ra Pt disheveled and sleeping. Awakens and answers questions and responds to commands but groggy HEENT unchanged. no oral lesions. scabs on face unchanged but no surrounding erythema or yllow crusting Neck supple without LAD Chest: CTA bilateral with bilateral decreased bs in base COR RR with mild tachycardia, unchanged murmur abdomen, soft, benign Extremities: unchanged chronic skin changes bilateral lower extremities but left leg erythema decreased in area of leg. Now mainly below knee and gastrocnoemius muscle and below no exudate of blisters neuro nonfocal Objective Labs 01/27/24 06:10 01/27/24 06:10 Labs: Laboratory Results - last 24 hr 01/26/24 01/27/24 15:50 06:10 WBC 13.7 H RBC 4.11 Hgb 11.4 L Hct 34.4 L MCV 83.6 MCH 27.7 MCHC 33.1 RDW 16.5 H Plt Count 207 Neut % (Auto) 72.6 Lymph % (Auto) 15.5 L [place] % (Auto) 6.8 Eos % (Auto) 4.2 H Baso % (Auto) 0.9 Neut # (Auto) 32780 H Lymph # (Auto) 2100 [place] # (Auto) 900 Eos # (Auto) 600 H Baso # (Auto) 100 Sodium 134 L Potassium 3.4 Chloride 100 Carbon Dioxide 31 BUN 18 H Creatinine 0.56 Estimated GFR > 60 BUN/Creatinine Ratio 32.1 H Glucose 90 Calcium 7.7 L Magnesium 1.4 L Total Bilirubin 1.0 AST 39 H ALT 39 H Alkaline Phosphatase 107 Total Protein 6.4 Albumin 3.2 L Globulin 3.2 Albumin/Globulin Ratio 1.0 U Opiates 300ng/mL cut Negative Ur Oxycodone Screen Negative Urine Methadone Screen Negative Ur Barbiturates Screen Negative U Tricyclic Antidepress Negative Ur Phencyclidine Scrn Negative Ur Amphetamines Screen Negative U Methamphetamines Scrn Negative Ur MDMA Scrn (Ecstasy) Negative U Benzodiazepines Scrn Positive H Urine Cocaine Screen Negative U Marijuana (THC) Screen Negative Urine pH Normal Urine Specific [place] Normal Ur Creatinine Normal PFSH Medical History Opioid use disorder Methamphetamine use disorder, severe, in early remission Skin rash Anxiety Social History Smoking Status: Current every day smoker Assessment & Plan Assessment & Plan narrative: Assessment 1. Acute respiratory failure suspect fluid overload secondary to right ventricular heart failure secondary to most likely pulmonary hypertension secondary to methamphetamine inhalation and usage. Unfortunately patient has not been able to have her right heart catheterization and vasodilators study so this has not yet been proven but is suspected. pt continues to improve. reviewed CTA and echo with pt continued diuresis with stable labs Plan: RT consult ongoing Supportive care with oxygen Lasix diuresis 40 mg IV q.12 hours. Will continue the same. Patient has had excellent diuresis and I suspect this is at least part if not totally her etiology for hypoxemia. Will repeat echo. EF was 60% in October on echo patient with dilated right ventricle and right heart failure with pulmonary hypertension. Clearly this is playing a part. Continue with same and likely if continues off oxygen will switch to po lasix tomorrow continue same care Assessment 2. Cellulitis with initial lactate elevated and repeat normal and fever on presentation. Patient is MRSA positive in the nares. Plan: Continue ceftriaxone and vancomycin. wbc trending down. afebrile now. clinically leg improving though difficult to assess due to undelying chronic skin changes. Blood cultures are pending but thus far are negative. Will continue iv vancomycin untl likely d/c and then switch to po abx Assessment 3. Right heart failure Plan: Last echo showed an EF of 60% with severely dilated right ventricle and right ventricle dysfunction. Current ECHO shows NSC in right heart failure and hypertrophy. Magnetic Tape Composer Operator is Dr. Milton at [facility]. No cardac cath has been done yet due to noncompliance and inability to abstain from meth adn fentanyl. CK and troponin negative Assessment 4. underlying inflammatory tinea corporis Plan: Supportive care Assessment 5. Methamphetamine and fentanyl use an addiction Plan: Encouraged patient that she needs to stay here without the oxygen antibiotics she will not survive and will certainly have to come back in the hospital. We will continue to support with lorazepam. Pt not interested in discussing options or treatment with me today Assessment 6. Severe hypokalemia Plan: improved. continue with current replcement and monitoring Assessment 7. Tachycardia suspect due to infection, right heart failure, fluid overload. Plan: continue to treat infection, reviewed echo, continue diltiazem Assessment 8. V-tach short run asymptomatic question related to hypokalemia. Replaced potassium and no further VT Plan:continue telemetry, continue with electrolyte replacement DVT prophylaxis Lovenox GI prophylaxis pantoprazole Unclear patient will be willing to stay in the hospital. We will continue to treat as we are able and I discussed the importance of treating her infection and that she should stay here until were able to treat her infection. Code status is full code 57 minutes was spent with patient discussing with physicians, nursing, reviewing her chart and her workup including reviewing notes, formulating a plan and documentation
[2024-01-27] MEDS: SODIUM CHLORIDE 0.9% FLUSH 10 ML IV ×2 (09:10→20:51)
[2024-01-27] MEDS: cefTRIAXone 1,000 MG in SODIUM CHLORIDE 0.9% 100 ML 200 MG IV (13:02)
[2024-01-27] MEDS: VANCOMYCIN TROUGH 1 REQUEST MISC (14:39)
[2024-01-27 15:06] LABS: Magnesium 1.5 mg/dL (1.6-2.3)
[2024-01-27 15:11] LABS: Vancomycin Trough 15.2 ug/mL (10-20)
[2024-01-27 15:17] LABS: NT-proBNP (BNP-Adult 18+) 1270 pg/mL (<125)
--- NOTE | 2024-01-27 15:31 | CM.DPC ---
DCP [facility] tx Per MD, pt still needing likely another couple days before medically stable to discharge. Pt was on oximask overnight but sats have improved and may be able to tolerate room air while sleeping. SW met bedside with pt and adult sister Galileo and explained role. They confirm that pt is currently agreeable to [facility] tx at discharge and pt has a hx of [facility] in [place] many years ago when she was 14 yo and they both feel this would be their preference if possible. Pt and family agreeable with most other [facility] tx facilities as well and sister Galileo willing to transport pt anywhere as long as pt gets treatment. Pt and sister confirm that pt has a hx of Suboxone clinic at [facility] for MAT but then stopped and then was switched to methadone which was a barrier to her getting into a tx center in [facility] as they could not manage the Medication Assistance there. Family and pt overwhelmed with the process of getting into [facility] tx and requesting SW assist. SW printed a partial list of inpt [facility] tx facilities and provided to family and attempted to call a couple facilities today ([facility] and left msg with admission, [facility] and left msg, [facility] only takes private insurance and private pay). Sister and pt requesting healthcare POA pwk as pt has hx of overdose and SW provided a copy of the brochure and form to complete. Plan: SW to follow closely for ongoing attempts at finding [facility] tx that can accept pt at discharge as ideal discharge plan vs [facility] or detox that can assist pt further with placement after discharge. Carie Kaur, WIND OPERATIONS MANAGER
[2024-01-27] MEDS: diphenhydrAMINE 25 MG TABLET 50 MG PO (20:51)
[2024-01-28] VITALS (19 sets, daily range): BP systolic 110–129; BP diastolic 55–90; PULSE 48–121; RESP 15–35; TEMP 36.3–36.9; O2SAT 83–98
[2024-01-28] MEDS: VANCOMYCIN 1,500 MG/300 ML PIGGYBACK 200 MG IV ×2 (03:08→14:33)
[2024-01-28] MEDS: dilTIAZem 30 MG TABLET PO ×4 (05:03→23:26)
[2024-01-28] MEDS: FUROSEMIDE 40 MG/4 ML VIAL IV ×2 (05:03→13:43)
[2024-01-28 05:06] LABS: Add Manual Diff / Slide Review NO; Basophils Absolute Auto 100 /uL (0-100); Basophils Percent Auto 1.1 % (0-2); Eosinophils Absolute Auto 600 /uL (0-450); Eosinophils Percent Auto 5.9 % (2-4); Hemoglobin 11.7 g/dL (12.0-16.0); Lymphocytes Absolute Auto 2300 /uL (1100-4500); Lymphocytes Percent Auto 21.9 % (25-40); Mean Corpuscular HGB Conc 32.4 % (30-36); Mean Corpuscular Hemoglobin 27.4 PG (26-34); Mean Corpuscular Volume 84.6 fL (80-100); Monocytes Absolute Auto 900 /uL (0-900); Neutrophils Absolute Auto 6700 /uL (1500-7000); Neutrophils Percent Auto 63.1 % (50-75); Platelet Count 226 X10^3/uL (150-400); Red Blood Cell Count 4.25 X10^6/uL (4.0-5.2); Red Cell Distribution Width 16.5 % (11.6-14.8); White Blood Cell Count 10.6 X10^3/uL (4.5-11.0)
[2024-01-28 05:23] LABS: Alanine Aminotransferase 41 IU/L (<35); Albumin 3.2 g/dL (3.5-5.0); Alkaline Phosphatase 108 U/L (38-126); Aspartate Aminotransferase 45 IU/L (14-36); BUN Creatinine Ratio 29.3 (6-22); Bilirubin Total 0.8 mg/dL (0.2-1.3); Blood Urea Nitrogen 17 mg/dL (7-17); Calcium 7.8 mg/dL (8.4-10.2); Carbon Dioxide 28 mmol/L (22-32); Chloride 103 mmol/L (98-107); Estimated Glomerular Filt Rate > 60 mL/min (>60); Globulin 3.3 g/dL (1.7-4.1); Glucose 91 mg/dL (70-100); HEMOLYSIS < 15 (0-50); Potassium 3.6 mmol/L (3.4-5.1); Sodium 136 mmol/L (137-145); Total Protein 6.5 g/dL (6.3-8.2)
[2024-01-28 05:44] LABS: Magnesium 1.5 mg/dL (1.6-2.3)
[2024-01-28] MEDS: NICOTINE 14 PATCH 14 MG TOP (08:45)
[2024-01-28] MEDS: POTASSIUM CHLORIDE 20 MEQ TAB 40 MEQ PO (08:46)
[2024-01-28] MEDS: ENOXAPARIN 40 MG/0.4 ML SYRINGE SUBCUT (08:46)
[2024-01-28] MEDS: MAGNESIUM CHLORIDE 64 MG TABLET 128 MG PO (08:46)
[2024-01-28] MEDS: SODIUM CHLORIDE 0.9% FLUSH 10 ML IV (08:47)
--- NOTE | 2024-01-28 11:24 | PM.PN.1 ---
Subjective Subjective Date Patient Seen: 01/28/24 Time Patient Seen: 08:00 Interval history: 33-year-old female admitted for lower extremity cellulitis. No acute events overnight. This morning she is doing well overall, denies fevers, chills, worsening in pain. She does note tremulousness/shakiness, anxiety, loose stools and cravings. We discussed substance use, she states that she uses methamphetamines and fentanyl at baseline. She has not sure of the dose, says a few pills of fentanyl and some amphetamines daily. She notes she is willing to pursue inpatient treatment/rehab. She states that her last use was 4 days ago before she was admitted to the hospital. During this discussion, she states I am tired and I do not want to talk about this right now. She does endorse some withdrawal sx but unable to clarify which sx. Exam Vital Signs (past 8 hours): - 01/28/24 05:01 01/28/24 05:03 01/28/24 05:04 Temperature Pulse Rate 98 H 99 H Respiratory Rate Blood Pressure 127/89 Pulse Oximetry 87 L 88 L Oxygen Delivery Method Oxygen Flow Rate Fraction of Inspired Oxygen 01/28/24 05:04 01/28/24 05:07 01/28/24 06:02 Temperature 98.4 F Pulse Rate 98 H 48 L Respiratory Rate 35 H 15 Blood Pressure 127/89 127/89 110/55 L Pulse Oximetry 92 95 Oxygen Delivery Method Oxygen Flow Rate 2 Fraction of Inspired Oxygen 40 01/28/24 07:00 01/28/24 08:13 01/28/24 08:14 Temperature Pulse Rate 102 H 102 H Respiratory Rate Blood Pressure Pulse Oximetry 88 L 91 Oxygen Delivery Method Room Air Oxygen Flow Rate Fraction of Inspired Oxygen 01/28/24 08:14 01/28/24 10:00 Temperature Pulse Rate 113 H Respiratory Rate 20 Blood Pressure 121/79 121/79 Pulse Oximetry 93 Oxygen Delivery Method Oxygen Flow Rate Fraction of Inspired Oxygen Fraction of Inspired Oxygen 40 SaO2/FiO2 Ratio 280 Oxygen Delivery Method Room Air Oxygen Flow Rate 2 Narrative Exam Narrative: GEN: Tired and chronically ill-appearing woman. Sleeping comfortably in bed upon entering the room. Awakens to voice and responds appropriately but is groggy HEENT: -Head: NC/AT CV: warm and well perfused LUNGS: Breathing comfortable on RA, no NC in place SKIN: Warm, well perfused. chronic skin changes on bilateral lower extremities with overlaying left leg erythema. Per pt report erythema decreasing. Erythema below the knee MSK: Moving all extremities spontaneously NEURO: No focal abnormalities. unable to assess pupils as pt declining further exam at this time. No tremulousness. Irritability present. Yawing present. Unable to fully assess COWS score due to pt declining participation at this time. Objective Labs 01/28/24 04:56 01/28/24 04:56 Labs: Laboratory Results - last 24 hr 01/27/24 01/27/24 01/28/24 14:35 14:43 04:56 WBC 10.6 RBC 4.25 Hgb 11.7 L Hct 36.0 MCV 84.6 MCH 27.4 MCHC 32.4 RDW 16.5 H Plt Count 226 Neut % (Auto) 63.1 Lymph % (Auto) 21.9 L [place] % (Auto) 8.0 Eos % (Auto) 5.9 H Baso % (Auto) 1.1 Neut # (Auto) 6700 Lymph # (Auto) 2300 [place] # (Auto) 900 Eos # (Auto) 600 H Baso # (Auto) 100 Sodium 136 L Potassium 3.6 Chloride 103 Carbon Dioxide 28 BUN 17 Creatinine 0.58 Estimated GFR > 60 BUN/Creatinine Ratio 29.3 H Glucose 91 Calcium 7.8 L Magnesium 1.5 L 1.5 L Total Bilirubin 0.8 AST 45 H ALT 41 H Alkaline Phosphatase 108 NT-Pro-B Natriuret Pep 1270 H Total Protein 6.5 Albumin 3.2 L Globulin 3.3 Albumin/Globulin Ratio 1.0 Vancomycin Trough 15.2 PFSH Medical History (Updated 01/28/24 @ 11:48 by Chrissie Parrish MD) Cellulitis Opioid use disorder Methamphetamine use disorder, severe, in early remission Skin rash Anxiety Social History Smoking Status: Current every day smoker Assessment & Plan Assessment and plan (1) Pulmonary hypertension: Status: Acute (2) Cellulitis: Qualifiers: Laterality: left Site of cellulitis: extremity Site of cellulitis of extremity: lower extremity Qualified Code(s): L03.116 - Cellulitis of left lower limb Status: Acute (3) Methamphetamine abuse: Status: Acute Plan 33-year-old female with polysubstance abuse who was admitted for management of cellulitis 5 days ago. ## cellulitis ## lactic acidosis, resolved: Blood cultures no growth to date at 4 days. Last fever 5 days ago. CBC this morning with no leukocytosis. MRSA nasal swab positive so treating for MRSA coverage until blood cultures finalized. Denies pain in the leg this morning. -continue IV vancomycin, plan for 7 days total treatment course after discussion with pharmacy today -continue ceftriaxone for now -as needed Tylenol for pain ## acute respiratory failure, resolved: Thought to be secondary to fluid overload secondary to heart failure which is inadequately treated. Unable to undergo right heart catheterization due to continued polysubstance use. As of this morning, off of supplemental oxygen. During my time in the room when she awoke, O2 saturation 91-93 - RT consult - [place] for pain ## polysubstance abuse, fentanyl and methamphetamine ## IVDU: This morning expressing a willingness to enter inpatient treatment facility. Unable to fully assess cows today but patient has been tachycardic. She states that her last use was prior to admission but per chart review and discussion with nursing/case management, the patient was found to have utilized an unknown substance that was brought in by friends when she was found to have worsening respiratory status spontaneously - Case management consult, appreciate assistance with finding placement - PRN lorazepam available - Narcan available ## pulmonary artery hypertension: Thought to be secondary to methamphetamine use. Right heart catheterization was recommended by Cardiology but unable to complete due to continued use. Electrical Assemblies Supervisor is at [facility] ## HFpEF ## tricuspid regurgitation: BNP yesterday 1270. Followed by Dr. Milton at [facility]. Thought to be secondary to pulmonary hypertension as above. Last echo was 01/25/24, showed an EF of 55-60% with severely dilated right ventricle and right ventricle dysfunction, persistent severe tricuspid regurgitation, and elevated right ventricular systolic pressure. -prescribed Lasix 20 mg daily, now with 40mg IV lasix q8hrs while inpt ## inflammatory tinea corporis: Stable, followed by Dermatology at [facility] ## hypertension: Normotensive this a.m. - prescribed clonidine 0.1mg daily, unclear compliance per patient's - continue Diltiezam 30mh q6hrs ## hypokalemia: Noted earlier in hospital stay, required multiple doses of repletion. Potassium this morning 3.6. Continue to trend Code status: Full code DVT prophylaxis: Lovenox Diet: General
[2024-01-28] MEDS: cefTRIAXone 1,000 MG in SODIUM CHLORIDE 0.9% 100 ML 200 MG IV (12:11)
--- NOTE | 2024-01-28 12:14 | CM.DPC ---
Addendum entered by CARLOS Ospina 01/28/24 16:28: ORCHARD HAND spoke with pt's sister, Galileo, regarding placing that call to [facility] intake. Pt's sister endorsed strong preference for having inpatient [facility] treatment in place before discharge so there is no lapse in care as she recognizes pt can get anxious about treatment, historically. ORCHARD HAND attempted to meet with pt but pt was asleep during both attempts. ORCHARD HAND called [facility] and left a voice message with admissions team to request an update on pt's intake and if more information could be provided. KIT Hernandez Original Note: DCP Continued Reviewed EMR and team rounds for pt?s medical status. Per hospitalist, pt still has a couple of days of IV antibiotics until medically stable. ORCHARD HAND spoke with [place] at [facility] (ph#[phone]), a intake file was started for pt. ORCHARD HAND answered demographic questions for intake. clerical support specialist still requested to speak with pt via phone. ORCHARD HAND entered room, introduced self and role. Present in the room is pt's sister, Galileo. Pt was found lying in bed, cooperative during meeting but was mainly encouraged by her sister. Pt and sister confirmed preference for inpatient [facility] treatment at [facility] and sister willingness to transport pt to [place] when able; also pt's preference to be transported by sister. ORCHARD HAND discussed pre-screening call necessary for intake; pt to call number above and leave a voice message with full name, and call back number. Pt and sister verbalized understanding and enthused to call after this meeting. Plan: Pt still agreeable to inpatient tx when medically cleared. Awaiting acceptance by a facility. CM Team following for evolving care plan. KIT Hernandez
[2024-01-28] MEDS: LORazepam 1 MG TABLET PO ×2 (12:57→21:28)
[2024-01-28] MEDS: hydrOXYzine HCL 25 MG TABLET 50 MG PO (12:57)
[2024-01-28] MEDS: GABAPENTIN 300 MG CAPSULE PO (13:43)
--- NOTE | 2024-01-28 17:32 | PC.NURSE ---
1530 - pt stated that she is unwilling to have any further IV med, antibiotics or lasix. MD notified and order noted for PO Amoxicillin starting tomorrow. Will encourage pt to stay the night and receive the prescriptions she needs for discharge.
[2024-01-28] MEDS: FUROSEMIDE 40 MG TABLET 80 MG PO (20:05)
[2024-01-28] MEDS: diphenhydrAMINE 25 MG TABLET 50 MG PO (20:05)
[2024-01-28] MEDS: MIRTAZAPINE 15 MG TABLET PO (21:28)
[2024-01-28] MEDS: CYCLOBENZAPRINE 10 MG TABLET 5 MG PO (21:28)
[2024-01-29] VITALS (15 sets, daily range): BP systolic 124–139; BP diastolic 75–99; PULSE 102–123; RESP 24–28; TEMP 36.1–37; O2SAT 85–98
[2024-01-29] MEDS: hydrOXYzine HCL 25 MG TABLET 50 MG PO ×4 (00:51→20:36)
[2024-01-29] MEDS: GABAPENTIN 300 MG CAPSULE PO ×3 (00:51→22:28)
[2024-01-29] MEDS: HYDROCODONE/ACET 10/325 TABLET 1 TAB PO (00:51)
[2024-01-29] MEDS: dilTIAZem 30 MG TABLET PO ×3 (06:56→18:03)
[2024-01-29] MEDS: ENOXAPARIN 40 MG/0.4 ML SYRINGE SUBCUT (08:19)
[2024-01-29] MEDS: AMOXICILLIN 250 MG CAPSULE 500 MG PO ×3 (08:19→20:32)
[2024-01-29] MEDS: FUROSEMIDE 40 MG TABLET 80 MG PO (08:20)
[2024-01-29] MEDS: NICOTINE 14 PATCH 14 MG TOP (08:20)
--- NOTE | 2024-01-29 08:27 | CM.DPC ---
DCP Cont: Spoke to [facility], indicated that they have not yet heard from patient, they need her to call them. Gave this DC Glassine Machine Tender their phone number, patient will need to leave a voice mail with them with her phone number. Since this DC Glassine Machine Tender is currently unable to enter her room, on isolation, nurse, Nia will give the phone number to patient when she enters her room. P: DCP to work on getting patient to a rehab facility, [facility], for patient has been there before. The plan is for patient's sister, Galileo, to transport her when medically stable. Latonya Corona RN/Customer Experience Analyst
[2024-01-29 08:45] LABS: BUN Creatinine Ratio 36.2 (6-22); Blood Urea Nitrogen 21 mg/dL (7-17); Calcium 8.6 mg/dL (8.4-10.2); Carbon Dioxide 26 mmol/L (22-32); Chloride 105 mmol/L (98-107); Estimated Glomerular Filt Rate > 60 mL/min (>60); Glucose 101 mg/dL (70-100); HEMOLYSIS < 15 (0-50); Potassium 4.5 mmol/L (3.4-5.1); Sodium 137 mmol/L (137-145)
[2024-01-29] MEDS: SODIUM CHLORIDE 0.9% FLUSH 10 ML IV (08:59)
--- NOTE | 2024-01-29 10:59 | P.PN_ITS ---
Subjective Subjective Date Patient Seen: 01/29/24 Time Patient Seen: 08:50 Interval history: 33-year-old female admitted for lower extremity cellulitis. No acute events overnight. She is doing overall well this morning. Declining any further IV medications. Planning to talk to [facility] about transferring there. She would like to leave the hospital soon. Discussed that I would like her to talk to [facility] and set up a plan with them and then determine steps from a hospital standpoint. She continues to endorse similar symptoms as yesterday with tremulousness/shakiness, anxiety, loose stools and cravings. She also endorses poor sleep last night. Not sure if she was given any of the symptomatic medications that were added yesterday. Exam Vital Signs (past 8 hours): - 01/29/24 03:00 01/29/24 06:49 01/29/24 06:50 Temperature 96.9 F L Pulse Rate 110 H 112 H 121 H Respiratory Rate 26 H Blood Pressure 135/75 Pulse Oximetry 90 L 89 L 85 L Oxygen Delivery Method Oxygen Flow Rate 01/29/24 06:50 01/29/24 06:56 01/29/24 07:00 Temperature Pulse Rate 110 H Respiratory Rate Blood Pressure 135/75 135/75 Pulse Oximetry Oxygen Delivery Method Room Air Oxygen Flow Rate 01/29/24 07:00 Temperature 96.9 F L Pulse Rate 105 H Respiratory Rate 24 Blood Pressure 132/87 Pulse Oximetry 98 Oxygen Delivery Method Oxygen Flow Rate 0 Fraction of Inspired Oxygen 40 SaO2/FiO2 Ratio 280 Oxygen Delivery Method Room Air Oxygen Flow Rate 0 Narrative Exam Narrative: GEN: Tired and chronically ill-appearing woman. Sitting up at bedside table eating breakfast. HEENT: -Head: NC/AT CV: warm and well perfused LUNGS: Breathing comfortable on RA, no NC in place, satting in the high 90s SKIN: Warm, well perfused. chronic skin changes on bilateral lower extremities with overlaying left leg erythema. Erythema below the knee, improved from yesterday. Swelling also improved from yesterday. MSK: Moving all extremities spontaneously, ambulating without difficulty NEURO: No focal abnormalities. Tremulousness apparent. Irritability present. No yawning visualized. Pupils dilated. COWS on 15 at the time of my assesment. Objective Labs 01/28/24 04:56 01/29/24 08:25 Labs: Laboratory Results - last 24 hr 01/29/24 08:25 Sodium 137 Potassium 4.5 Chloride 105 Carbon Dioxide 26 BUN 21 H Creatinine 0.58 Estimated GFR > 60 BUN/Creatinine Ratio 36.2 H Glucose 101 H Calcium 8.6 PFSH Medical History (Updated 01/28/24 @ 11:48 by Chrissie Parrish MD) Cellulitis Opioid use disorder Methamphetamine use disorder, severe, in early remission Skin rash Anxiety Social History Smoking Status: Current every day smoker Assessment & Plan Assessment and plan (1) Cellulitis: Qualifiers: Laterality: left Site of cellulitis: extremity Site of cellulitis of extremity: lower extremity Qualified Code(s): L03.116 - Cellulitis of left lower limb Status: Acute (2) Pulmonary hypertension: Status: Acute (3) Methamphetamine abuse: Status: Acute (4) Pulmonary hypertension: Status: Acute Plan 33-year-old female with polysubstance abuse who was admitted for management of cellulitis 5 days ago. ## cellulitis ## lactic acidosis, resolved: Blood cultures no growth to date at 5 days. Last fever 6 days ago. Last CBC with no leukocytosis. Denies pain in the leg this morning. Declining any further IV medications. TRansitioned to Po Amoxicillin due to concern for frequency of dosing with Keflex and SE with Doxycycline. Discussed with pharmacy - s/p Ceftriaxone for 4 days, dc per pt request - Sp Vancomycin for MRSA coverage for 4 days, dc per pt request - TRansition to PO Amoxicillin 500mg TID starting this AM - as needed Tylenol for pain, avoid narcotics ## polysubstance abuse, fentanyl and methamphetamine ## IVDU: COWS elevated, pt amenable to starting symptomatic control medications. [facility], phone call scheduled with them today to discuss further details. Pt not ready to discuss MAT this AM, will return this afternoon to discuss. - Case management consult, appreciate assistance with finding placement - PRN lorazepam available - Narcan available - Tylenol 650mg q6hrs (325mg additional in norco ordered PRN) - Hydroxyzine 50mg q4h PRN for agitation, restlessness, nausea, pain - Flexeril 5mg TID PRN for muscle aches, pain - Zofran 4mg q6h PRN for nausea - Mirtazapine 15 g PRN nightly for insomnia - Clonidine 0.1mg q4h PRN for anxiety, tremor, diarrhea, muscle pain, cravings - Gabapentin 400mg TID PRN for muscle aches - Bentyl 10mg q6h PRN for abdominal cramps/diarrhea - Imodium PRN for diarrhea ## acute respiratory failure, resolved: Thought to be secondary to fluid overload secondary to heart failure which is inadequately treated. Unable to undergo right heart catheterization due to continued polysubstance use. As of this morning, off of supplemental oxygen. During my time in the room when she awoke, O2 saturation 91-93 - RT consult ## pulmonary artery hypertension: Thought to be secondary to methamphetamine use. Right heart catheterization was recommended by Cardiology but unable to complete due to continued use. Broadcast Supervisor is at [facility] ## HFpEF ## tricuspid regurgitation: BNP yesterday 1270. Followed by Dr. Milton at [facility]. Thought to be secondary to pulmonary hypertension as above. Last echo was 01/25/24, showed an EF of 55-60% with severely dilated right ventricle and right ventricle dysfunction, persistent severe tricuspid regurgitation, and elevated right ventricular systolic pressure. -s/p tx with IV lasix, now declining IV, transitioned to PO yesterday. Legs less edematous today, will decrease dose to 40mg PO TID ## inflammatory tinea corporis: Stable, followed by Dermatology at [facility] ## hypertension: Normotensive this a.m. - prescribed clonidine 0.1mg daily, unclear compliance per patient's - continue Diltiezam 30mh q6hrs ## hypokalemia: Noted earlier in hospital stay, required multiple doses of repletion. Potassium this morning 3.6. Continue to trend Code status: Full code DVT prophylaxis: Lovenox Diet: General dispo plannin-2 days pending transfer of care to [facility]
[2024-01-29] MEDS: LORazepam 1 MG TABLET PO ×3 (13:41→22:28)
[2024-01-29 14:25] LABS: Ur Creatinine Normal (Normal); Ur Specific Gravity Normal (Normal); Urine THC Negative (Negative); Urine pH Normal (Normal)
[2024-01-29 14:26] LABS: Urine Amphetamines Negative (Negative); Urine Barbiturates Negative (Negative); Urine Benzodiazepines Positive (Negative); Urine Cocaine Negative (Negative); Urine MDMA Negative (Negative); Urine Methamphetamines Negative (Negative); Urine Opiates Positive (Negative); Urine Phencyclidine Negative (Negative)
[2024-01-29 14:27] LABS: Urine Methadone Negative (Negative)
[2024-01-29 14:28] LABS: Urine Oxycodone Negative (Negative); Urine Tricyclic Antidepressant Positive (Negative)
[2024-01-29] MEDS: FUROSEMIDE 40 MG TABLET PO ×2 (14:45→20:32)
[2024-01-29] MEDS: diphenhydrAMINE 25 MG TABLET 50 MG PO (20:32)
[2024-01-29] MEDS: CYCLOBENZAPRINE 10 MG TABLET 5 MG PO (20:36)
[2024-01-29] MEDS: MIRTAZAPINE 15 MG TABLET PO (20:36)
--- NOTE | 2024-01-29 22:02 | PC.NURSE ---
Patient friend (Corine Devine) to bedside, brought patients purse and other belongings, and left. Patient in shower, sister Barbara Kelley and ninallely Weiss at bedside. Patients sister searched patients purse and found drug paraphernalia (fentanyl), multiple vapes, loose tobacco, as well as other belongings. Patient and patients sister got into a verbal altercation and purse was surrendered to RN. Patients sister Barbara left the hospital. Security and charge nurse Itzel Reed notified. Drugs and drug paraphernalia surrendered to local law enforcement. Patient notified. Patients purse, vapes x2, as well as remainder of purse contents placed in secured bag and sent to safe per patients request.
[2024-01-30] VITALS: BP 130/67; PULSE 110; RESP 24; O2SAT 93
[2024-01-30 00:14] VITALS: BP 130/67; PULSE 110
[2024-01-30] MEDS: dilTIAZem 30 MG TABLET PO ×3 (00:14→12:05)
[2024-01-30 06:01] VITALS: BP 110/71; PULSE 104; RESP 26; TEMP 36.4; O2SAT 96
[2024-01-30 06:07] VITALS: BP 110/71; PULSE 104
[2024-01-30 06:35] LABS: Add Manual Diff / Slide Review NO; Basophils Absolute Auto 100 /uL (0-100); Basophils Percent Auto 1.1 % (0-2); Eosinophils Absolute Auto 500 /uL (0-450); Eosinophils Percent Auto 4.9 % (2-4); Hematocrit 40.4 % (36-46); Hemoglobin 13.1 g/dL (12.0-16.0); Lymphocytes Absolute Auto 2200 /uL (1100-4500); Lymphocytes Percent Auto 22.7 % (25-40); Mean Corpuscular HGB Conc 32.5 % (30-36); Mean Corpuscular Hemoglobin 27.4 PG (26-34); Mean Corpuscular Volume 84.1 fL (80-100); Monocytes Absolute Auto 800 /uL (0-900); Monocytes Percent Auto 7.7 % (3-14); Neutrophils Absolute Auto 6200 /uL (1500-7000); Neutrophils Percent Auto 63.6 % (50-75); Platelet Count 352 X10^3/uL (150-400); Red Cell Distribution Width 16.8 % (11.6-14.8); White Blood Cell Count 9.8 X10^3/uL (4.5-11.0)
[2024-01-30 06:48] LABS: BUN Creatinine Ratio 39.6 (6-22); Blood Urea Nitrogen 21 mg/dL (7-17); Calcium 8.8 mg/dL (8.4-10.2); Carbon Dioxide 22 mmol/L (22-32); Chloride 107 mmol/L (98-107); Estimated Glomerular Filt Rate > 60 mL/min (>60); Glucose 108 mg/dL (70-100); HEMOLYSIS < 15 (0-50); Potassium 4.3 mmol/L (3.4-5.1); Sodium 136 mmol/L (137-145)
[2024-01-30] MEDS: FUROSEMIDE 40 MG TABLET PO (09:50)
[2024-01-30] MEDS: AMOXICILLIN 250 MG CAPSULE 500 MG PO (09:50)
[2024-01-30] MEDS: SODIUM CHLORIDE 0.9% FLUSH 10 ML IV (09:51)
[2024-01-30] MEDS: LORazepam 1 MG TABLET PO (10:14)
[2024-01-30] MEDS: hydrOXYzine HCL 25 MG TABLET 50 MG PO (10:14)
[2024-01-30 12:05] VITALS: BP 112/75; PULSE 105
[2024-01-30 12:15] VITALS: BP 112/75; PULSE 109; RESP 24
--- NOTE | 2024-01-30 12:48 | P.DS_ITS ---
History of Present Illness History of Present Illness Date Patient Seen: 01/30/24 Time Patient Seen: 12:48 Chief complaint: thinks she has cellulitis Narrative: This 33-year-old female is well known to me. Patient has a long history of IV methamphetamine and fentanyl abuse. Patient presented to the emergency department on 01/23/2024 with complaints of possible cellulitis on her left lower leg. It had started several days ago and became increasingly more swollen and painful to the point that she was unable to walk on it. She did use fentanyl and math immediately prior to presenting to the ER. She states that she does not remember having any chills or fever. Lower extremity Dopplers was negative for DVT. Patient was given some IV fluids and ceftriaxone and vancomycin in the ER. She was then admitted to the on-call service but boarded in the ER. She was noted initially in the ER doctor's note to of had hypoxemic episode however at the time that I was notified she was on 40 L oxygen with FiO2 of 45% on presentation to the ICU. Of note patient was recently hospitalized December 02 at [facility] with with overdose on fentanyl was found down and was intubated for 24 hours and extubated. Most recent echo was in October of 2023 which showed a EF of 60%. Patient had CTA at [facility] that showed no cause for her chronic pulmonary hypertension. It is thought that she has category 1 pulmonary artery hypertension secondary to methamphetamine use. Patient has right heart failure. Past medical history: 1. Fentanyl IV use disorder for 10 years with recent overdose and hospitalization with intubation at [facility] December 02 and discharged December 04 2. 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 Pulmonary artery hypertension thought secondary to methamphetamine abuse. Patient has not undergone right heart catheterization or vasodilators study because she has not been able to follow through Patient sees a internet architect at [facility] 4. Right heart failure secondary to probable pulmonary hypertension. Followed by Dr. Milton at [facility] 5. Tubo-ovarian abscess 1 year ago, resolved on last pelvic ultrasound. Never followed up with [facility]/recycling center operator 6. Inflammatory tinea corporis 7. Tricuspid regurgitation 8. Hypertension 9. Normal spontaneous vaginal delivery x1 10. Tobacco use, half pack a day since age 13 Clonidine 0.1 mg daily Lasix 20 mg daily Patient currently not compliant on medications Has been on Suboxone I think prescribed by Carlosic Albuterol as needed Allergies no known drug allergies Past surgical history: Negative Health related behavior as above Family history: Mom from liver cancer in November Mom with valvular heart disease Depression Anxiety COPD Review of systems: Negative for any vomiting or nausea diarrhea or abdominal pain. Patient with scabs on her face. Denies accident. Wound on left medial knee but looks more like a blister Several day history of leg pain and unable to walk on it Discharge Providers Provider Date of admission: 01/24/24 00:54 Discharge Date: 01/30/24 Primary care physician: Juliana Yeager MD Consults: 01/23/24 21:27 Consult to [facility] [place] Fire Extinguisher Mechanic Stat Comment: 01/24/24 00:53 Consult to Physician Stat Comment: Consulting Provider: Juliana Yeager Reason for consultation: admissuio Has provider been notified: No 01/24/24 00:54 Consult to Physician Stat Comment: Consulting Provider: Carlos Alberto Miller Reason for consultation: admission Has provider been notified: Yes 01/24/24 13:04 Consult to Discharge Planning Routine Comment: Consult to [employer] DESIGN ENGINE[employer] - Fire Extinguisher Mechanic Routine Comment: 01/24/24 13:44 Consult to [facility] [place] [facility] Fire Extinguisher Mechanic Routine Comment: Consult to Fire Extinguisher Mechanic Routine Comment: Discharge provider: Juliana Yeager MD Summary Hospital Course Discharge Diagnosis: 1. Cellulitis of left lower extremity 2. Sepsis without septic shock. Leukocytosis, fever, tachycardia 3. Acute respiratory failure, resolved 4. Severe right ventricular heart failure 5. Heart failure with preserved ejection fraction 6. Pulmonary hypertension 7. Polysubstance abuse, fentanyl and methamphetamines 8. Severe tricuspid regurgitation 9. Hypokalemia 10. Hypomagnesemia 11. Acute kidney disease Hospital Course: Patient was admitted to the hospital with acute respiratory failure. She was found to have cellulitis and this was her presenting complaint. She was MRSA positive and patient was placed on Rocephin and vancomycin. Patient continued requiring high-flow oxygen for the 1st 4 days that she was hospitalized. She was aggressively diuresed and echo was done that showed no significant change from the 1 in October though possible worsened right ventricular heart failure. Patient at 1 point admitted to using fentanyl and on that day which was the 25 of January patient had acute worsening respiratory status associated with using fentanyl. We continued with aggressive diuresis. CTA of the chest was done and showed no PE. Patient refused Lovenox while she was in the hospital most of the days. She continued to be treated with IV Lasix and vancomycin and Rocephin. On January 27 patient declined further IV antibiotics and was switched to oral amoxicillin. Patient continued to remain afebrile and with no leukocytosis and was discharged home on 01/30/2024. Patient was given diltiazem for heart rate control and switch to p.o. furosemide on 01/30/2024. Patient had marked improvement of her cellulitis and respiratory function and had been on room air for 48 hours prior to discharge. Status at Discharge Cognitive/behavioral status at discharge: at baseline, oriented Functional status at discharge: independent ambulation Overall status at discharge: patient is progressing back to baseline Exam Vital Signs (past 8 hours): - 01/30/24 06:01 01/30/24 06:07 01/30/24 12:05 Temperature 97.5 F L Pulse Rate 104 H 104 H 105 H Respiratory Rate 26 H Blood Pressure 110/71 110/71 112/75 Pulse Oximetry 96 01/30/24 12:15 Temperature Pulse Rate 109 H Respiratory Rate 24 Blood Pressure 112/75 Pulse Oximetry Fraction of Inspired Oxygen 40 SaO2/FiO2 Ratio 280 Oxygen Delivery Method Room Air Oxygen Flow Rate 0 Narrative Exam Narrative: Patient is alert and oriented x3 Patient is afebrile and vital signs are stable other than tachycardia in the low 100s Patient is restless but less agitated Neck: Supple Chest: Clear to auscultation without wheezes rhonchi or crackles Cor regular rhythm and rate of 105 distant S1-S2, unchanged murmur Abdomen: Positive bowel sounds Extremities: Markedly improved with swelling of left lower extremity almost completely resolved except at the medial aspect of the left knee. Still with erythema and induration here but markedly improved. There is peeling from the significant swelling that has now resolved. The erythema is almost completely resolved. Her underlying skin mottling is markedly improved I suspect from not using. Neurologic exam is nonfocal other than patient very restless Objective Labs 01/30/24 06:20 01/30/24 06:20 Labs: Laboratory Results - last 24 hr 01/29/24 01/30/24 14:00 06:20 WBC 9.8 RBC 4.80 Hgb 13.1 Hct 40.4 MCV 84.1 MCH 27.4 MCHC 32.5 RDW 16.8 H Plt Count 352 Neut % (Auto) 63.6 Lymph % (Auto) 22.7 L [place] % (Auto) 7.7 Eos % (Auto) 4.9 H Baso % (Auto) 1.1 Neut # (Auto) 6200 Lymph # (Auto) 2200 [place] # (Auto) 800 Eos # (Auto) 500 H Baso # (Auto) 100 Sodium 136 L Potassium 4.3 Chloride 107 Carbon Dioxide 22 BUN 21 H Creatinine 0.53 Estimated GFR > 60 BUN/Creatinine Ratio 39.6 H Glucose 108 H Calcium 8.8 U Opiates 300ng/mL cut Positive H Ur Oxycodone Screen Negative Urine Methadone Screen Negative Ur Barbiturates Screen Negative U Tricyclic Antidepress Positive H Ur Phencyclidine Scrn Negative Ur Amphetamines Screen Negative U Methamphetamines Scrn Negative Ur MDMA Scrn (Ecstasy) Negative U Benzodiazepines Scrn Positive H Urine Cocaine Screen Negative U Marijuana (THC) Screen Negative Urine pH Normal Urine Specific [place] Normal Ur Creatinine Normal [facility] Medical History (Updated 01/28/24 @ 11:48 by Chrissie Parrish MD) Cellulitis Opioid use disorder Methamphetamine use disorder, severe, in early remission Skin rash Anxiety Social History Smoking Status: Current every day smoker Discharge Assessment & Plan Assessment and Plan Assessment: 1. Cellulitis of left lower extremity 2. Sepsis without septic shock. Leukocytosis, fever, tachycardia 3. Acute respiratory failure, resolved 4. Severe right ventricular heart failure 5. Heart failure with preserved ejection fraction 6. Pulmonary hypertension 7. Polysubstance abuse, fentanyl and methamphetamines 8. Severe tricuspid regurgitation 9. Hypokalemia 10. Hypomagnesemia 11. Acute kidney disease Plan of Treatment: Patient will be discharged home with her sister today. They are taking her to due to folic tomorrow morning for evaluation and then the plan is for inpatient treatment. Discussed with patient that if she continues to use fentanyl and methamphetamines she will . Discussed the severity of her underlying health problems and how the drugs impact that. She voices understanding. She will be discharged home on Lasix 40 mg p.o. q.a.m., diltiazem CD 120 mg p.o. q.a.m, amoxicillin 500 mg t.i.d. for 7 days, hydroxyzine 50 mg p.o. q.6 hours PRN, clonidine 0.1 mg to take at bedtime for sleep. Most important thing for her health will be that she continues to abstain from using fentanyl and methamphetamine. She voices understanding. Discharge Plan Discharge Plan Patient Disposition: Home Discharge orders & Medications Prescriptions: New furosemide 40 mg Tablet 40 mg PO QAM Qty: 30 0RF amoxicillin 250 mg Capsule 500 mg PO TID Qty: 21 0RF hydroxyzine HCl 25 mg Tablet 50 mg PO Q6H PRN (Reason: Nausea, anxiety, tremulousness) Qty: 20 0RF clonidine HCl 0.1 mg tablet 0.1 mg PO BEDTIME Qty: 30 0RF diltiazem HCl 120 mg capsule,extended release 24hr 120 mg PO DAILY Qty: 30 0RF Discontinued metoprolol succinate 25 mg Tablet Extended Release 24 Hr 25 mg PO DAILY potassium chloride 10 meq tablet 10 meq PO DAILY potassium chloride 10 mEq tablet extended release 10 meq PO DAILY docusate sodium 100 mg capsule 100 mg PO QD-BID furosemide 20 mg tablet 20 mg PO DAILY PRN (Reason: swelling) albuterol sulfate 90 mcg/actuation HFA aerosol inhaler 2 puff INHALATION 4XD Follow up/Referrals: Juliana Yeager MD [Primary Care Provider] - Discharge Health Status Multidrug resistant organism: MRSA Diet/Activity/Treatments Diet: Diet as Tolerated Visit Report/Discharge Packet Stand Alone Forms: Patient Portal/API, Stroke Signs & Symptoms Discharge Data Primary Care Provider: Juliana Yeager
--- NOTE | 2024-01-30 13:27 | PC.NURSE ---
Day shift: Pt appears anxious, agitated, requesting to discharge. Pt pulling at midline, telling RN to remove. RN spoke to provider, received okay to remove. Pt ambulating in halls with sister Galileo. Pt agrees to discharge plan. Discharge education provided to pt. Pt wheeled via w/c to private vehicle with this RN and sister at approximately 1316.
--- NOTE | 2024-01-30 13:41 | CM.DPNOTE ---
DCP Note HOSPITAL LIBRARIAN reviewed EMR. pt's Director Business Systems with Karthik Azul ([phone]) stopped by in morning to assist in coordinator of DCP. HOSPITAL LIBRARIAN, CC, pt, aunt, sister, and additional family met together in room. Pt eager to dc. Family working on taking pt either to [facility] or [facility] for Substance use inpt treatment assessment. Pt reported talking on the phone to two different inpt rehab facilities, and they both could likely accept her after JESICA assessment. asked if this HOSPITAL LIBRARIAN would attempt to get her appt at [facility]. HOSPITAL LIBRARIAN spoke with intake Edith at [facility]. Confirm pt is previously established with them for MH but not JESICA treatment. do not have appts today but encouraged pt to do walk in assessment right when they open at 5:30am. HOSPITAL LIBRARIAN updated pt on no available appts this afternoon. Pt reports no needs from this HOSPITAL LIBRARIAN in coordinating her INPT JESICA treatment. Plan to do walk in assessment at [facility] this afternoon. Sister assisting in coordinating that now. HOSPITAL LIBRARIAN lvm with CC [place] about pt's discharge. Plan: pt dc'd today with family support. JESICA assessment from either [facility] or [facility]. No identified CM needs at this time. CARLOS Bentley
== END 2024-01-30 13:16 | disposition home or self-care (01) | DRG 720 ==
LOC: ED 01-24 00:10 → AC 01-24 00:55 → ICU 01-24 11:12
PROVIDERS: Family Medicine; Pharmacist Pharmacist Clinician (PhC)/ Clinical Pharmacy Specialist; Admitting Provider Family Medicine; Emergency Provider Emergency Medicine; PCP Family Medicine; Referring Provider Emergency Medicine; Visit Provider Family Medicine
DX: A41.9 Sepsis, unspecified organism (principal); I11.0 Hypertensive heart disease with heart failure; J96.01 Acute respiratory failure with hypoxia; I50.810 Right heart failure, unspecified; I50.30 Unspecified diastolic (congestive) heart failure; L03.116 Cellulitis of left lower limb; B35.4 Tinea corporis; E87.6 Hypokalemia; F11.20 Opioid dependence, uncomplicated; F15.20 Other stimulant dependence, uncomplicated; I47.20 Ventricular tachycardia, unspecified; I27.20 Pulmonary hypertension, unspecified; I07.1 Rheumatic tricuspid insufficiency; E83.42 Hypomagnesemia; B95.62 Methicillin resistant Staphylococcus aureus infection as the cause of diseases classified elsewhere; F17.210 Nicotine dependence, cigarettes, uncomplicated
CPT/HCPCS: 0241U; 36415; 36592; 71045; 71275; 80048; 80053; 80202; 80305; 81003; 81015; 81025; 82550; 83605; 83690; 83735; 83880; 84145; 84484; 84703; 85025; 87040; 87797; 93005; 93306; 93971; 96365; 96368; 96375; 99284; 99291; 99406; A9270; J0696; J1642; J1650; J1940; J2060; J2405; J3475; Q9967

== ENCOUNTER → 2024-02-07 12:54 | Outpatient (CLI) | payer OTHER, MEDICAID, SELFPAY ==
[2024-01-27 18:00] VITALS: BMI 33.0
[2024-02-07 13:14] LABS: Add Manual Diff / Slide Review NO; Basophils Absolute Auto 100 /uL (0-100); Basophils Percent Auto 1.1 % (0-2); Eosinophils Absolute Auto 300 /uL (0-450); Hematocrit 37.2 % (36-46); Hemoglobin 12.3 g/dL (12.0-16.0); Lymphocytes Absolute Auto 2400 /uL (1100-4500); Lymphocytes Percent Auto 29.1 % (25-40); Mean Corpuscular Hemoglobin 27.9 PG (26-34); Mean Corpuscular Volume 84.6 fL (80-100); Monocytes Absolute Auto 600 /uL (0-900); Monocytes Percent Auto 7.9 % (3-14); Neutrophils Absolute Auto 4700 /uL (1500-7000); Neutrophils Percent Auto 57.9 % (50-75); Platelet Count 355 X10^3/uL (150-400); Red Cell Distribution Width 16.8 % (11.6-14.8); White Blood Cell Count 8.1 X10^3/uL (4.5-11.0)
[2024-02-07 13:39] LABS: Alanine Aminotransferase 34 IU/L (<35); Albumin 4.2 g/dL (3.5-5.0); Albumin Globulin Ratio 1.2 (1.0-2.8); Alkaline Phosphatase 139 U/L (38-126); Aspartate Aminotransferase 42 IU/L (14-36); BUN Creatinine Ratio 34.5 (6-22); Bilirubin Total 0.9 mg/dL (0.2-1.3); Blood Urea Nitrogen 20 mg/dL (7-17); Calcium 9.7 mg/dL (8.4-10.2); Carbon Dioxide 22 mmol/L (22-32); Chloride 107 mmol/L (98-107); Estimated Glomerular Filt Rate > 60 mL/min (>60); Globulin 3.5 g/dL (1.7-4.1); Glucose 82 mg/dL (70-100); HEMOLYSIS < 15 (0-50); Potassium 4.3 mmol/L (3.4-5.1); Sodium 138 mmol/L (137-145); Total Protein 7.7 g/dL (6.3-8.2)
== END ==
PROVIDERS: PCP Family Medicine; Referring Provider Family Medicine; Visit Provider Family Medicine
DX: Z13.0 Encounter for screening for diseases of the blood and blood-forming organs and certain disorders involving the immune mechanism (principal); L03.116 Cellulitis of left lower limb; I27.20 Pulmonary hypertension, unspecified; I07.1 Rheumatic tricuspid insufficiency; J45.40 Moderate persistent asthma, uncomplicated; F15.10 Other stimulant abuse, uncomplicated
CPT/HCPCS: 36415; 80053; 83735; 85025

== ENCOUNTER → 2024-06-06 09:22 | Outpatient (CLI) | payer OTHER, MEDICAID, SELFPAY ==
[2024-01-27 18:00] VITALS: BMI 33.0
--- NOTE | 2024-06-06 | DI.ECHO.S_ITS ---
[facility] : : [address] : : [place] : : [id number] : : Phone: [phone] Echocardiogram Report + + :Name: LOUIE RUIZ Study Date: 06/06/2024 Height: 64 in : :[facility] ReadingLocation: Weight: 175 lb : : Gender: Female BSA: 1.8 m2 : :: 1990 Age: 33 yrs BP: 111/76 mmHg: :Reason For Study: PAH : :Ordering Physician: ANGELO, : :MESERET Performed By: Yaz Toledo : :Referring: MESERET STEPHENS : + + Interpretation Summary Normal sinus rhythm. Normal LV size and wall thickness. Normal wall motion and LV systolic function. Ejection fraction is 55-60%. Severely dilated right ventricle. D-shaped LV in systole and diastole consistent with RV pressure overload. RV function is normal. There is associated mild right atrial enlargement. Tricuspid valve leaflets are characterized by mal -coaptation. There is severe eccentric anterior septally directed tricuspid regurgitation. 83+ severely dilated right atrium. Estimated pulmonary artery pressure is 86 mmHg assuming right atrial pressure of 3 mmHg. Pulmonic vein acceleration time is 46 ms consistent with pulmonary hypertension. Compared to prior echo January 25, 2024, no significant changes have occurred. Procedure: A two-dimensional transthoracic echocardiogram with color flow and Doppler was performed. The study quality was technically adequate. Comparison is made with the echocardiogram of 01/25/2024. The patient was in sinus rhythm with heart rates between 67-82 bpm during the exam. Left Ventricle: The left ventricle is normal in size and wall thickness. The ejection fraction is estimated to be 60-65%. The interventricular septum is flattened, consistent with a right ventricular pressure/volume condition. Right Ventricle: The right ventricle is severely dilated. The right ventricular systolic function is normal. Atria: The left atrial size is normal. The right atrium is mildly dilated. There is no Doppler evidence for an interatrial shunt. Mitral Valve: The mitral valve is normal in structure and function. There is mild mitral regurgitation. Aortic Valve: The aortic valve is trileaflet. The aortic valve opens well. There is no aortic valve stenosis. No aortic regurgitation is present. Tricuspid Valve: The tricuspid valve leaflets are thin and pliable. There is severe tricuspid regurgitation. The right ventricular systolic pressure is estimated to be at least 86 mmHg based on an estimated right atrial pressure of 3 mm Hg. Pulmonic Valve: The pulmonic valve leaflets are thin and pliable; valve motion is normal. There is mild pulmonic regurgitation. Great Vessels: The aortic root is normal size. The dimensions of the ascending aorta are normal. The IVC is of normal diameter and collapses greater than 50% with a sniff. This suggests a low right atrial pressure of 3 mm Hg. Pericardium/ Pleura There is no pericardial effusion. There is no pleural effusion. MMode/2D Measurements & Calculations LVIDd: 4.5 cm LVOT diam: 2.0 cm LVIDs: 3.0 cm Ao root diam: 2.9 cm FS: 33.6 % asc Aorta Diam: 2.8 cm IVSd: 0.72 cm Ao Arch Diam (Prox Trans): 2.5 cm LVPWd: 0.79 cm LV ba. diameter/BSA (cm/m^2): 2.5 LV sys. diameter/BSA (cm/m^2): 1.6 LA A2 area: 16.1 cm2 RA long axis: 6.0 cm LA A4 area: 15.6 cm2 RA area: 23.5 cm2 LA length (vol): 5.8 cm RA vol: 78.1 ml LA vol: 36.6 ml RA : 42.3 ml/m2 LA vol index: 19.8 ml/m2 IVC diam: 1.6 cm RVD1 (basal): 4.2 cm RVD2 (mid): 4.1 cm TAPSE: 1.7 cm Doppler Measurements & Calculations Ao V2 max: 140.6 cm/sec LVOT Max Heath: 99.2 cm/sec Ao V2 mean: 98.3 cm/sec LV V1 max P.9 mmHg Ao max P.9 mmHg LV V1 VTI: 19.5 cm Ao mean P.3 mmHg NEVILLE(I,D): 2.0 cm2 Ao V2 VTI: 29.6 cm NEVILLE(V,D): 2.2 cm2 sev ratio: 0.66 NEVILLE indexed to BSA (cm^2/m^2): 1.1 MV E max heath: 77.7 cm/sec TR max heath: 455.9 cm/sec MV A max heath: 64.2 cm/sec TR max P.3 mmHg MV E/A: 1.2 PA V2 max: 100.5 cm/sec Med Peak E' Heath: 9.5 cm/sec PA V2 mean: 68.4 cm/sec E/E' med: 8.2 PA mean P.1 mmHg Lat Peak E' Heath: 11.6 cm/sec PA pr(Accel): 58.4 mmHg E/E' lat: 6.7 E/e' average: 7.4 MV dec time: 0.21 sec SV(LVOT): 59.7 ml Electronically signed by: Luna Hernadez M.D. on Reading Physician:06/06/2024 02:08 PM
== END ==
LOC: ECHO 09:23
PROVIDERS: PCP Family Medicine; Referring Provider Internal Medicine Critical Care Medicine; Visit Provider Internal Medicine Critical Care Medicine
DX: I08.1 Rheumatic disorders of both mitral and tricuspid valves (principal); I27.20 Pulmonary hypertension, unspecified
CPT/HCPCS: 93306

== ENCOUNTER → 2025-04-30 09:18 | Outpatient (CLI) | payer OTHER, MEDICAID, SELFPAY ==
[2024-01-27 18:00] VITALS: BMI 33.0
--- NOTE | 2025-04-30 09:20 | DI.ECHO.S_ITS ---
[facility]---------+ [facility] : : [address] : : [place] : : [id number] : : Phone: [phone] Echocardiogram Report + + :Name: LOUIE RUIZ Study Date: 04/30/2025 Height: 64 in : :Hospital ReadingLocation: Weight: 185 lb : : Gender: Female BSA: 1.9 m2 : :: 1990 Age: 34 yrs BP: 111/70 mmHg: :Reason For Study: PULMONARY ARTERY HYPERTENSION : :Ordering Physician: ANGELO, : :MESERET Performed By: Yaz Toledo : :Referring: MESERET STEPHENS : + + Interpretation Summary 1) Normal left ventricular thickness, size, and systolic function (EF 60-65%). 2) Normal right ventricular size and function. 3) No significant valvular abnormalities. 4) The right ventricular systolic pressure is estimated to be at least 46 mmHg based on an estimated right atrial pressure of 3 mm Hg. 5) Compared to the Echo done 06/06/2024, RVSP has decreased from 86mmHg to 46mmHg on this study. Procedure: A two-dimensional transthoracic echocardiogram with color flow and Doppler was performed. The study quality was technically adequate. Comparison is made with the echocardiogram of 06/06/2024. The heart rate ranged between 60-71 bpm during the study. Left Ventricle: The left ventricle is normal in size and wall thickness. The ejection fraction is estimated to be 60-65%. Septal bounce present. Right Ventricle: The right ventricle is normal size. The right ventricular systolic function is normal. Atria: The left atrial size is normal. Right atrial size is normal. There is no Doppler evidence for an interatrial shunt. Mitral Valve: The mitral valve leaflets appear mildly thickened. There is mild mitral regurgitation. Aortic Valve: The aortic valve is trileaflet. The aortic valve opens well. There is no aortic valve stenosis. No aortic regurgitation is present. Tricuspid Valve: The tricuspid valve leaflets are thin and pliable. There is mild to moderate tricuspid regurgitation. The right ventricular systolic pressure is estimated to be at least 46 mmHg based on an estimated right atrial pressure of 3 mm Hg. Pulmonic Valve: The pulmonic valve leaflets are thin and pliable; valve motion is normal. There is no pulmonic valvular regurgitation. Great Vessels: The aortic root is normal size. The dimensions of the ascending aorta are normal. The IVC is of normal diameter and collapses greater than 50% with a sniff. This suggests a low right atrial pressure of 3 mm Hg. Pericardium/ Pleura There is no pericardial effusion. There is no pleural effusion. MMode/2D Measurements & Calculations LVIDd: 5.0 cm LVOT diam: 2.0 cm LVIDs: 3.4 cm Ao root diam: 2.8 cm FS: 31.7 % asc Aorta Diam: 2.9 cm EPSS: 0.64 cm Ao Arch Diam (Prox Trans): 2.4 cm IVSd: 0.76 cm LVPWd: 0.66 cm LV ba. diameter/BSA (cm/m^2): 2.6 LV sys. diameter/BSA (cm/m^2): 1.8 LA A2 area: 15.8 cm2 RA long axis: 5.4 cm LA A4 area: 11.7 cm2 RA area: 15.1 cm2 LA length (vol): 4.7 cm RA vol: 36.1 ml LA vol: 33.4 ml RA : 19.1 ml/m2 LA vol index: 17.7 ml/m2 IVC diam: 0.85 cm RVD1 (basal): 3.7 cm RVD2 (mid): 3.3 cm TAPSE: 1.5 cm Doppler Measurements & Calculations Ao V2 max: 152.8 cm/sec LVOT Max Heath: 104.4 cm/sec Ao V2 mean: 104.4 cm/sec LV V1 max P.4 mmHg Ao max P.3 mmHg LV V1 VTI: 21.0 cm Ao mean P.9 mmHg NEVILLE(I,D): 2.0 cm2 Ao V2 VTI: 31.9 cm NEVILLE(V,D): 2.0 cm2 sev ratio: 0.66 NEVILLE indexed to BSA (cm^2/m^2): 1.0 MV E max heath: 82.0 cm/sec TR max heath: 327.6 cm/sec MV A max heath: 66.5 cm/sec TR max P.0 mmHg MV E/A: 1.2 PA V2 max: 110.8 cm/sec Med Peak E' Heath: 8.8 cm/sec PA V2 mean: 71.2 cm/sec E/E' med: 9.3 PA mean P.3 mmHg Lat Peak E' Heath: 12.8 cm/sec PA pr(Accel): 30.2 mmHg E/E' lat: 6.4 E/e' average: 7.9 MV dec time: 0.21 sec MVA(VTI): 2.1 cm2 MV V2 mean: 57.1 cm/sec SV(LVOT): 62.9 ml MV mean P.5 mmHg MV V2 VTI: 30.3 cm Reading Physician:03:23 PM
== END ==
PROVIDERS: PCP Family Medicine; Referring Provider Internal Medicine Critical Care Medicine; Visit Provider Internal Medicine Critical Care Medicine
DX: I27.20 Pulmonary hypertension, unspecified (principal); I08.1 Rheumatic disorders of both mitral and tricuspid valves
CPT/HCPCS: 93306